=== PATIENT | female | born 1940 | race Caucasian/White ===

== ENCOUNTER 2024-09-11 03:11 | Inpatient (IN) | payer OTHER, SELFPAY ==
[2024-09-10 21:43] VITALS: BMI 26.4
[2024-09-10 21:47] VITALS: BP 123/70
[2024-09-10 22:03] LABS: Glucose - Point of Care 208 mg/dl (70-99)
[2024-09-10 22:14] LABS: % Basophils 0.3 % (0-2); % Eosinophils 0.1 % (0-6); % Immature Granulocytes 0.6 % (0-0.5); % Lymphocytes 11.3 % (20.5-51.1); % Monocytes 6.3 % (1.7-9.3); % Neutrophils 81.4 % (42.2-75.2); Absolute Basophils 0.1 10^3/uL (0-0.2); Absolute Immature Granulocytes 0.1 10^3/uL (0-0.05); Absolute Lymphocytes 1.9 10^3/uL (1.2-3.4); Absolute Neutrophils 13.3 10^3/uL (1.4-6.5); Hematocrit 41.9 % (37.0-47.0); Hemoglobin 13.8 g/dL (12.0-16.0); Mean Corp Hgb Conc. 32.9 g/dL (33.0-37.0); Mean Corpuscular Hgb 29.3 pg (27.0-31.0); Nucleated Red Blood Cells % 0 %; Platelet Count 372 10^3/uL (130-400); Red Blood Cell Count 4.71 10^6/uL (4.20-5.40); Red Cell Dist. Width 13.3 % (11.5-14.5); White Blood Cell Count 16.3 10^3/uL (4.8-10.8)
[2024-09-10 22:30] LABS: ALT (SGPT) 18 U/L (0-35); AST (SGOT) 21 U/L (14-36); Albumin 4.3 g/dl (3.5-5.0); Alkaline Phosphatase 48 U/L (38-126); Blood Urea Nitrogen 20 mg/dl (7-17); COVID-19 Antigen Negative (Negative); Carbon Dioxide 28 mmol/L (22-30); Chloride 93 mmol/L (98-107); Glucose 218 mg/dl (70-99); Lipase 156 U/L (23-300); Potassium 4.9 mmol/L (3.5-5.1); Sodium 133 mmol/L (135-145); Total Bilirubin 0.8 mg/dl (0.2-1.3); Total Protein 6.8 g/dl (6.3-8.2); eGFR > 60.00
--- NOTE | 2024-09-10 23:23 | ED.GENMED ---
History of Present Illness
<Matt Metzger DO - Last Filed: 09/11/24 01:40>
General
Chief Complaint: Abdominal Pain
Time Seen by Provider: 09/10/24 23:12
<CINDY Patino - Last Filed: 09/11/24 01:48>
General
Source: patient and family
Exam Limitations: none
Nursing documentation reviewed up to this point in time: agreed with
History of Present Illness
History of Present Illness:
Pt is an 84 y/o F w/ PMH of type 2 DM, HTN, and HLD who presents today with her daughter for nausea, vomiting, fever and mild abdominal pain x 48 hours. Pt states it began after eating soup that had been on the counter for 2 hours and is concerned
for food poisoning. She states she has not vomited in a while and does not currently feel nauseous. She has not tried anything to help, and states she has not has any fluids or food in the past 4 hours. She admits her last BM was this morning at
0400am and was of normal consistency. She notes her abdominal pain comes at random and was worse when she was actively vomiting. She admits it is located mostly in the LUQ and denies radiation of the pain. Pt has a temperature of 100.2F on admission
today. Pt states she generally feels well, and better than she did when the illness began. She denies hematemesis, hematuria, diarrhea, constipation, chills, chest pain, cough, SOB, dyspnea, or recent sick contacts.
If applicable-neuro sx onset
Onset of symptoms known: Yes
Date of onset of symptoms: 09/08/24
Review of Systems
<CINDY Patino - Last Filed: 09/11/24 01:48>
Review of Systems
Allergies reviewed?: Yes
Other source history: family
Constitutional: Reports fatigue
EENT: Reports other (dry mucous membranes)
Respiratory: Reports no symptoms
Cardiac: Reports no symptoms
ABD/GI: Reports abdominal pain (worse when actively vomiting, random in timing; pt describes pain as 'dull' in LUQ) and vomiting (multiple times x 2 days)
: Reports no symptoms
Musculoskeletal: Reports no symptoms
Neurological: Reports no symptoms
Phy Exam
<Radha Tejada STPA - Last Filed: 09/11/24 01:48>
General Physical Exam
General Presentation: well appearing
General age: appears stated age
General Skin: warm and dry
General Habitus: elderly
General Mental: alert
General Hydration: dry mucous membranes
Cardiovascular Exam
Cardiovascular Exam: regular rate/rhythm and no murmur
Pulmonary Exam
Pulmonary Exam: lungs clear and no respiratory distress
Gastrointestinal Exam
Gastrointestinal Exam: normal bowel sounds, soft, distended (mildly) and tender (mild epigastric tenderness on palpation; no rebound)
Course
<Matt Metzger, DO - Last Filed: 09/11/24 01:40>
Orders/Labs/Results
Orders:
Orders
09/10/24 21:44
Electrocardiogram (*1) Urgent
Reason for Study: Abdominal Pain
Bedside Glucose- Treatment ONCE
EKG- Treatment ONCE
IV Insert/Care/Rem.- Treatment PRN
Urinalysis Reflex To Culture Urgent
Date Specimen was Collected: 09/10/24
Time Specimen was Collected: 21:44
09/10/24 22:06
COVID-19 Antigen Urgent
Source: Nasal Swab
Complete Blood Count/With Diff Urgent
Comprehensive Metabolic Panel Urgent
Lipase Urgent
Influenza A+B Rapid Molecular Urgent
MATTIE Source: Nasal Swab
Specimen Description:
09/10/24 23:32
0.9% Sodium Chloride 1000 ml [Nss] 1,000 ml IV BOLUS
09/11/24 00:00
CT Abd/pelvis W Iv Cont Urgent
Reason For Exam: fever, mid abd pain
Abnormal Lab Results
09/10/24 09/10/24 09/11/24
22:02 22:06 01:09
WBC 16.3 H 10^3/uL
(4.8-10.8)
MCHC 32.9 L g/dL
(33.0-37.0)
Abs Immat Gran (auto) 0.1 H 10^3/uL
(0-0.05)
Absolute Neuts (auto) 13.3 H 10^3/uL
(1.4-6.5)
Absolute Monos (auto) 1.0 H 10^3/uL
(0.1-0.6)
Immature Gran % 0.6 H %
(0-0.5)
Neutrophils % 81.4 H %
(42.2-75.2)
Lymphocytes % 11.3 L %
(20.5-51.1)
Sodium 133 L mmol/L
(135-145)
Chloride 93 L mmol/L
(98-107)
BUN 20 H mg/dl
(7-17)
Glucose 218 H mg/dl
(70-99)
Urine Ketones Trace A
(Negative)
POC Glucose 208 H mg/dl
(70-99)
09/10/24 22:06
09/10/24 22:06
Vital Signs
Initial and Last Documented VS:
Initial Vital Signs
Temp Pulse Resp BP Pulse Ox
100.2 F 83 20 123/70 97
09/10/24 21:47 09/10/24 21:47 09/10/24 21:47 09/10/24 21:47 09/10/24 21:47
Last Documented Vital Signs
Temp Pulse Resp BP Pulse Ox
100.2 F 83 20 119/67 95
09/10/24 21:47 09/10/24 21:47 09/10/24 21:47 09/11/24 01:07 09/11/24 01:30
<CINDY Patino - Last Filed: 09/11/24 01:48>
Orders/Labs/Results
Orders:
Orders
09/10/24 21:44
Electrocardiogram (*1) Urgent
Reason for Study: Abdominal Pain
Bedside Glucose- Treatment ONCE
EKG- Treatment ONCE
IV Insert/Care/Rem.- Treatment PRN
Urinalysis Reflex To Culture Urgent
Date Specimen was Collected: 09/10/24
Time Specimen was Collected: 21:44
09/10/24 22:06
COVID-19 Antigen Urgent
Source: Nasal Swab
Complete Blood Count/With Diff Urgent
Comprehensive Metabolic Panel Urgent
Lipase Urgent
Influenza A+B Rapid Molecular Urgent
MATTIE Source: Nasal Swab
Specimen Description:
09/10/24 23:32
0.9% Sodium Chloride 1000 ml [Nss] 1,000 ml IV BOLUS
09/11/24 00:00
CT Abd/pelvis W Iv Cont Urgent
Reason For Exam: fever, mid abd pain
Abnormal Lab Results
09/10/24 09/10/24 09/11/24
22:02 22:06 01:09
WBC 16.3 H 10^3/uL
(4.8-10.8)
MCHC 32.9 L g/dL
(33.0-37.0)
Abs Immat Gran (auto) 0.1 H 10^3/uL
(0-0.05)
Absolute Neuts (auto) 13.3 H 10^3/uL
(1.4-6.5)
Absolute Monos (auto) 1.0 H 10^3/uL
(0.1-0.6)
Immature Gran % 0.6 H %
(0-0.5)
Neutrophils % 81.4 H %
(42.2-75.2)
Lymphocytes % 11.3 L %
(20.5-51.1)
Sodium 133 L mmol/L
(135-145)
Chloride 93 L mmol/L
(98-107)
BUN 20 H mg/dl
(7-17)
Glucose 218 H mg/dl
(70-99)
Urine Ketones Trace A
(Negative)
POC Glucose 208 H mg/dl
(70-99)
09/10/24 22:06
09/10/24 22:06
Vital Signs
Initial and Last Documented VS:
Initial Vital Signs
Temp Pulse Resp BP Pulse Ox
100.2 F 83 20 123/70 97
09/10/24 21:47 09/10/24 21:47 09/10/24 21:47 09/10/24 21:47 09/10/24 21:47
Last Documented Vital Signs
Temp Pulse Resp BP Pulse Ox
100.2 F 83 20 119/67 95
09/10/24 21:47 09/10/24 21:47 09/10/24 21:47 09/11/24 01:07 09/11/24 01:30
<CINDY Patino - Last Filed: 09/11/24 01:48>
*Critical Care Note
Total Time (30-74mins, 75-104mins- exclusive of procedures): Not Applicable
<CINDY Patino - Last Filed: 09/11/24 01:48>
Update Note
Update Note:
09/11/24 @ 01:39AM; AD PA-S: CT abdomen showing SBO per radiology; pt and family made aware of Dx and plan to admit for observation and NPO; pt in no acute distress/pain
ED Attending Note
<Matt Metzger DO - Last Filed: 09/11/24 01:40>
ED Attending Note
Patient seen and examined by attending physician: Yes
I performed the substantive portion of visit, reviewed & personally made and approve the management plan that is documented in note by myself or SUZY.: Yes
ED Attending Note:
I have seen and evaluated the patient with a [id number] encounter. I have spoken to the advance practicer provider and involved in the medical history, the physical exam, medical decision making.
Evaluation and management service: agree unless noted differently below.
Results interpretation: agree unless noted differently below.
Focused HPI: 84-year-old female presenting with nausea and vomiting over the past few days. This is associated with a low-grade fever. She has been complaining of mild abdominal pain but she attributes this to likely food poisoning. On my
evaluation, patient states she is already starting to feel better
Physical exam: Dry mucous membranes, mild mid abdominal tenderness without rebound. No respiratory distress or cough
Medical Decision Making: Given age and abdominal pain, will obtain CT abdomen/pelvis. She does have expected leukocytosis given the vomiting and low-grade fever. She is hyperglycemic but there is no evidence of DKA. Will give IV fluids
<CINDY Patino - Last Filed: 09/11/24 01:48>
-
Portions of this chart may have been created with voice recognition software.� Occasional wrong word or��sound alike� substitutions may have occurred due to the inherent limitations of voice recognition software.
Discharge Plan
Departure
Patient Disposition: Admit
Date of Disposition: 09/11/24
Time of Disposition: 01:40
Admit to: Med/Surg
Presentation/result/management discussed w/ accepting MD/DO: Hospitalist
Discharge Problem:
SBO (small bowel obstruction)
Prescriptions:
No Action
glimepiride 4 mg Tablet
4 mg PO BID
pravastatin 80 mg Tablet
80 mg PO DAILY
aspirin 81 mg Tablet
81 mg PO DAILY
atenolol 50 mg Tablet
50 mg PO DAILY
insulin glargine 100 unit/mL Cartridge
36 unit SC DAILY
valsartan-hydrochlorothiazide 320-25 mg Tablet
1 tab PO DAILY
Janumet 50-1,000 mg Tablet
1 tab PO BID
Referrals:
UNKNOWN - PT DOES,NOT KNOW [Unknown Provider] -
Interventions
Interventions:
*General Assessment Last Done: 09/10/24 23:59
*Neglect/Abuse Screening Last Done: 09/10/24 21:49
*ED COVID-19 Vaccine History Last Done: 09/10/24 23:59
QT-Fxfxcy-Faosvvecrs Assessment Last Done: 09/10/24 23:53
Discharge Date and Time
Print Language: URDU
[2024-09-10] MEDS: NSS 1000 IV (23:41)
[2024-09-11] VITALS (10 sets, daily range): BP systolic 105–134; BP diastolic 52–70; BMI 27.6
[2024-09-11 01:18] LABS: Urine Albumin Trace (Neg - Trace); Urine Bilirubin Negative (Negative); Urine Character Clear (Clear); Urine Color Yellow; Urine Glucose Negative (Negative); Urine Ketone Trace (Negative); Urine Leukocyte Negative (Negative); Urine Nitrite Negative (Negative); Urine Occult Blood Negative (Negative); Urine Specific Gravity 1.015 (<1.030); Urine Urobilinogen Negative (Neg - 1+)
--- NOTE | 2024-09-11 03:04 | HPS.HSE ---
Family Physician
-
Family Physician: Natasha Bojorquez
Chief Complaint
-
Abdominal pain
History of Present Illness
This is an 84-year-old female past medical history of insulin-dependent diabetes, hypertension, hyperlipidemia who presents to the emergent department with 2 days of abdominal pain.
Patient reports acute onset of bilateral lower quadrant abdominal pain associated with 1-2 episodes of nonbloody and nonbilious emesis. Denied having any diarrhea. Denied having fevers or chills at home. Patient reports of pain has been
persistent over the last 2 days as she is unable to tolerate p.o. due to the pain so she came to the emergency department. She denies prior history of such abdominal discomfort. In the ED patient was found to have a small bowel obstruction. She
denies prior history of bowel obstruction or gallstones. She reported that she had a hysterectomy over 30 years ago and no other surgeries since. Patient denied any history of inflammatory bowel disease. She denies any recent episodes of bloody
BMs. She has had colonoscopies in the past. She also had a history of esophageal ring//status post prior EGD.
On arrival in the emergency department she had a low-grade temp of 100.2, blood pressure was stable at 111/60 with a pulse of 83 she was at 95% on room air. He had a white count of 16.3 with the rest of the CBC unremarkable. Initial sodium was 133
with a left electrolytes BUN/creatinine were unremarkable. LFTs were within normal limits. UA was completely normal. She had a CT of the abdomen pelvis which showed acute small bowel obstruction in the proximal ileum at the pelvic junction.
Medical History
Past Medical History
Past Medical History: Reports HTN, Hypercholesterolemia and IDDM
Past Surgical History: Reports Gynocological (Hysterectomy)
Social History
Tobacco: Non-smoker
Alcohol: Occasional
Drug: None
Personal: Single
Living: With Family
Employment: Retired
Family History
Family History: Not pertinent
Allergies / Home Medications
Allergies reflects when Allergies were last updated in [facility].
Home Medications with original date entered in [facility]
Allergy/Medication List:
Allergies
Allergy/AdvReac Type Severity Reaction Status Date / Time
No Known Allergies Allergy Verified 09/10/24 21:45
Home Medications
aspirin 81 mg tablet 81 mg PO DAILY 08/05/23
atenolol 50 mg tablet 50 mg PO DAILY 08/05/23
glimepiride 4 mg tablet 4 mg PO BID 08/05/23
insulin glargine 100 unit/mL subcutaneous cartridge 36 unit SC DAILY 08/05/23
pravastatin 80 mg tablet 80 mg PO DAILY 08/05/23
sitagliptin phosphate 50 mg-metformin 1,000 mg tablet (Janumet) 1 tab PO BID 08/05/23
valsartan 320 mg-hydrochlorothiazide 25 mg tablet 1 tab PO DAILY 08/05/23
Review of Systems
-
History Source: Patient
Constitutional: Reports No Symptoms
EENT: Reports No Symptoms
Respiratory: Reports No Symptoms
Cardiac: Reports No Symptoms
Abdomen/GI: Reports Abdominal Pain and Vomiting
: Reports No Symptoms
Musculoskeletal: Reports No Symptoms
Skin: Reports No Symptoms
Neurological: Reports No Symptoms
Endocrine: Reports No Symptoms
Hematologic/Lymphatic: Reports No Symptoms
Psych: Reports No Symptoms
Physical Exam
Vital Signs
Vital Signs
Temp Pulse Resp BP Pulse Ox
100.2 F 83 20 119/54 94
09/10/24 21:47 09/10/24 21:47 09/10/24 21:47 09/11/24 03:00 09/11/24 03:00
Physical Exam
General: Well Developed, Well Nourished and Comfortable
HEENT: NormoCephalic, Anicteric, Moist mucous membranes and Atraumatic
Respiratory: Clear
Cardiac: S1/S2 and Regular Rhythm
Breast: Deferred by me
GI: Soft, Non Tender and Non Distended
Rectal: Deferred by Provider
Genito-urinary: Deferred by me
Musculoskeletal: No Clubbing, No Cyanosis and No Edema
Skin: Warm
Neuro: AO x 3
Hematologic/Lymphatic: No Lymphadenopathy
Psych: Calm
Laboratory Results
-
09/10/24 22:06
09/10/24 22:
Laboratory Results
Total Bilirubin 0.8 mg/dl (0.2-1.3) 09/10/24 22:06
AST 21 U/L (14-36) 09/10/24 22:
ALT 18 U/L (0-35) 09/10/24 22:06
Alkaline Phosphatase 48 U/L (38-126) 09/10/24 22:
Lipase 156 U/L (23-300) 09/10/24 22:06
Data Reviewed
-
CT Scan: Report Reviewed by me
Medical Tests (Nuc Med, Echo, EKG etc): Image Personally Visualized and interpreted
Lab Data: Labs Reviewed by me
Old Records: Reviewed
Impression/Plan
-
IMPRESSION:
84-year-old female with episode of abdominal pain found to have acute small bowel obstruction on CT scan. She is mildly dehydrated with a sodium of 133 but labs are otherwise unremarkable. She has a low-grade temp and leukocytosis to 16,000 with
no obvious signs of infection and this time. While in the ED the patient has not received any pain medications. She denies any significant nausea. She has not vomited. Her abdomen was being benign without any distention.
PLAN:
1. SBO - Hx of hysterectomy so possibly related to adhesion but no other known risk factors. Benign abdominal exam. Labs unremarkabl.e
- admit to med/surg
- NPO for now except sips and icechips
- low dose pain control and antiemetics
- IVF with NS at 50 ml/hr for now
- surgery consult
- if vomiting will place NG tube but currently asymptomatic.
2. IDDM
- holding lantus, glimepiride and sitagliptin and metformin
- bedside accuchecks q6 with moderate sliding scale insulin
3. HTN
- holding antihypertensives for now
DVT PPX - lovenox sq
Code Status - DNR
[2024-09-11 08:27] LABS: Glucose - Point of Care 181 mg/dl (70-99)
[2024-09-11] MEDS: NOVOLOG FLEXPEN-MODERATE RESISTANCE SC ×3 (09:18→17:00)
[2024-09-11 12:02] LABS: Glucose - Point of Care 181 mg/dl (70-99)
[2024-09-11] MEDS: NSS 1000 IV (12:50)
--- NOTE | 2024-09-11 13:37 | CM ---
Patient seen bedside with daughter, initial assessment completed. Patient resides with her daughter in a single story home, three steps to enter. Patient denies DME, VN, or SNF history. Patient confirms PCP Natasha Bojorquez, pharmacy [facility] in
[place], confirms prescription coverage. Patient denies insecurities at home. Surgery consulted. CM will continue to follow for all discharge planning needs.
Plan; home with daughter, watch for VN needs.
--- NOTE | 2024-09-11 15:14 | CON.GS ---
Consultation
-
Date/Time Consultation Requested: 09/11/24 1456
Requesting Provider: Marques Rollins
Performing Provider: Lopez Quinones
Reason for Consultation: SBO
Medical History
-
Chief Complaint: abdominal pain/n/v
History of Present Illness:
Ms Teixeira is an 84 yo female with a history of esophageal dilation of Schatzki ring, DM and an infected IUD which developed into peritonitis and was treated surgically with LOBITO >40 years ago. She notes that there were retention sutures left in
place and the wound was quite large. She presents this admission with abdominal pain with nausea and vomiting for 2 days. Her last meal was on night when she had a bowl of a chicken soup containing a lot of vegetables and a large bowl of
nuts. A few hours thereafter, she developed nausea, vomiting and lower abdominal pain. These symptoms persisted and she was unable to tolerate any oral intake causing her to present to the ED for evaluation yesterday. She denies prior SBO's but does
note that when she eats large meals, she often has quite a bit of abdominal distention. Since presentation, she notes only intermittent nausea and pain, usually short in duration and no further vomiting. She is not passing flatus but denies burping
or belching.
Past Medical History
Past Medical History: HTN, Hypercholesterolemia and NIDDM
Past Surgical History: Gynecological (LOBITO for infected IUD) and Other (Esophageal dilation of Schatzki ring 2022)
Social History
Tobacco: Non-Smoker
Alcohol: Occasional
Living: With Family
Employment: Retired
Family History
Family History: Reviewed & Not Pertinent
Allergies / Home Medications
Allergy/AdvReac Type Severity Reaction Status Date / Time
No Known Allergies Allergy Verified 09/10/24 21:45
�Medication �Instructions �Recorded �Confirmed �Type
aspirin 81 mg tablet 81 mg PO DAILY 08/05/23 08/05/23 History
atenolol 50 mg tablet 50 mg PO DAILY 08/05/23 08/05/23 History
glimepiride 4 mg tablet 4 mg PO BID 08/05/23 08/05/23 History
insulin glargine 100 unit/mL 36 unit SC DAILY 08/05/23 08/05/23 History
subcutaneous cartridge
pravastatin 80 mg tablet 80 mg PO DAILY 08/05/23 08/05/23 History
sitagliptin phosphate 50 1 tab PO BID 08/05/23 08/05/23 History
mg-metformin 1,000 mg tablet
(Janumet)
valsartan 320 1 tab PO DAILY 08/05/23 08/05/23 History
mg-hydrochlorothiazide 25 mg tablet
Review of Systems
-
History Source: Patient and Family
All other systems: Negative unless noted
A 10 point review of systems was completed, and was negative except as per HPI.
Physical Exam
Vital Signs
Temp Pulse Resp BP Pulse Ox
99.0 F 83 20 134/70 95
09/11/24 07:49 09/11/24 07:49 09/11/24 07:49 09/11/24 07:49 09/11/24 07:49
09/10/24 09/11/24 09/12/24
06:59 06:59 06:59
Actual Weight 65.4 kg 66.27 kg
Body Mass Index (BMI) 27.6
Lab Results
09/10/24 22:06
09/10/24 22:06
WBC 16.3 10^3/uL (4.8-10.8) H 09/10/24 22:06
Hgb 13.8 g/dL (12.0-16.0) 09/10/24 22:06
Hct 41.9 % (37.0-47.0) 09/10/24 22:06
Plt Count 372 10^3/uL (130-400) 09/10/24 22:06
Abs Immat Gran (auto) 0.1 10^3/uL (0-0.05) H 09/10/24 22:06
Neutrophils % 81.4 % (42.2-75.2) H 09/10/24 22:06
Physical Exam
General: Well Developed and Well Nourished
HEENT: Moist Mucous Membranes
Respiratory: Non Labored Respirations
GI: Soft, Non Tender and Distended
Skin: Warm and Dry
Psych: Calm
Data Reviewed
-
CT Scan: Image Personally Visualized and interpreted, Report Reviewed by me, Discussed with Physician, Discussed with Patient and Discussed with Family
Labs: Labs Reviewed by me, Discussed with Physician, Discussed with Patient and Discussed with Family
Old Records: Reviewed
Assessment / Plan
-
Ms Teixeira is an 84 yo female with a history of esophageal dilation of Schatzki ring, IDDM and an infected IUD which developed into peritonitis and was treated surgically with LOBITO >40 years ago. She presents with abdominal pain with nausea and
vomiting for 2 days. These symptoms persisted and she was unable to tolerate any oral intake causing her to present to the ED for evaluation yesterday. Since presentation, she notes improvement in symptoms with now intermittent instead of constant
nausea and pain and no further vomiting. She is not passing flatus.
CT imaging reviewed with distal small bowel obstruction noted with upstream fetalization from the transition point in the pelvis. There is no evidence of bowel threat or compromise. No hernias present. Suspect this is due to adhesions from her prior
infection and surgery. Afebrile with stable vital signs. Leukocytosis is present.
She has begun to symptomatically improve with supportive measures. No emergent surgery planned today, will follow closely for improvement with medical management at this time
--Continue NPO for bowel rest
--IVF as per primary team
--Trend labs
--If develops nausea with vomiting once again, would consider placement of NGT for decompression
--Medical management as per primary team
[2024-09-11 16:49] LABS: Glucose - Point of Care 124 mg/dl (70-99)
[2024-09-11] MEDS: LOVENOX 40 MG SC (17:00)
[2024-09-11 17:47] LABS: Glucose - Point of Care 149 mg/dl (70-99)
--- NOTE | 2024-09-11 18:59 | PTCARENOTE ---
In conversation with Family and patient, pt stated that she wants us to resuscitate her if she becomes non responsive. She does not want to be a DNR. Please change this in the system.
[2024-09-12] MEDS: TYLENOL 650 MG PO ×4 (00:02→22:52)
[2024-09-12 00:46] LABS: Glucose - Point of Care 136 mg/dl (70-99)
[2024-09-12] MEDS: NOVOLOG FLEXPEN-MODERATE RESISTANCE SC ×4 (00:48→17:57)
[2024-09-12] MEDS: NSS 1000 IV (01:50)
[2024-09-12 07:17] LABS: Glucose - Point of Care 168 mg/dl (70-99)
[2024-09-12 07:30] VITALS: BP 133/73
[2024-09-12 07:50] LABS: Hematocrit 38.4 % (37.0-47.0); Hemoglobin 12.5 g/dL (12.0-16.0); Mean Corp Hgb Conc. 32.6 g/dL (33.0-37.0); Mean Corpuscular Hgb 29.6 pg (27.0-31.0); Mean Platelet Volume 10.5 fL (7.4-10.4); Platelet Count 288 10^3/uL (130-400); Red Blood Cell Count 4.22 10^6/uL (4.20-5.40); Red Cell Dist. Width 13.8 % (11.5-14.5); White Blood Cell Count 7.7 10^3/uL (4.8-10.8)
[2024-09-12 07:59] LABS: Blood Urea Nitrogen 30 mg/dl (7-17); Calcium 9.2 mg/dl (8.4-10.2); Carbon Dioxide 29 mmol/L (22-30); Chloride 98 mmol/L (98-107); Estimated Creatinine Clearance 44 ml/min; Glucose 155 mg/dl (70-99); Potassium 4.6 mmol/L (3.5-5.1); Sodium 138 mmol/L (135-145); eGFR > 60.00
--- NOTE | 2024-09-12 09:31 | W.PN.GS2 ---
Today's Communication / Plan
-
abdominal xrays
Assessment / Plan
-
84 yo female with distal small bowel obstruction noted with upstream fetalization from the transition point in the pelvis. There is no evidence of bowel threat or compromise. No hernias present. Suspect this is due to adhesions from her prior
infection and surgery.
Afebrile with stable vital signs. WBC 7.7 (16.3)
--Continue NPO for bowel rest.
--Abdominal xrays this AM
--IVF as per primary team
--Trend labs
--If develops nausea with vomiting once again, would consider placement of NGT for decompression
--Medical management as per primary team
Subjective Data
-
Date of Service: September 12, 2024
Patient states she has waxing and waning nausea, but she is not nauseous right now. She has mild distention but slowly improving. She has no vomiting. She overall feels a little better. She had flatus and a small BM this morning. She had abdominal
pain overnight which has now resolved.
Objective Data
-
Intake and Output
09/11/24 09/12/24 09/13/24
06:59 06:59 06:59
Intake Total 0 / 0
Balance 0 / 0
Intake:
Oral fluids 0 / 0
Other:
Number of approximated MODERATE 4
amounts of urine
Vital Signs
Temp Pulse Resp BP Pulse Ox
98.6 F 79 18 133/73 94
09/12/24 07:30 09/12/24 07:30 09/12/24 07:30 09/12/24 07:30 09/12/24 07:30
Lab Results
09/12/24 07:09
09/12/24 07:09
Calcium 9.2 mg/dl (8.4-10.2) 09/12/24 07:09
Total Bilirubin 0.8 mg/dl (0.2-1.3) 09/10/24 22:06
AST 21 U/L (14-36) 09/10/24 22:06
ALT 18 U/L (0-35) 09/10/24 22:06
Alkaline Phosphatase 48 U/L (38-126) 09/10/24 22:06
Total Protein 6.8 g/dl (6.3-8.2) 09/10/24 22:06
Albumin 4.3 g/dl (3.5-5.0) 09/10/24 22:06
Physical Exam
-
General: Well Developed and Well Nourished
HEENT: Moist Mucous Membranes
Respiratory: Non Labored Respirations
GI: Soft, Non Tender and mildly distended
Skin: Warm and Dry
Psych: Calm
--- NOTE | 2024-09-12 09:59 | CM ---
CM received consult for Advance Directive- patient seen with son, provided paperwork. Patient reports she is feeling much better today. General surgery following. CM will continue to follow for all discharge planning needs.
Plan; home no needs, watch for VN needs.
--- NOTE | 2024-09-12 11:29 | W.PN.HOSP.TC ---
Today's Communication/Plan
-
NPO
IVF
Abd xray
Surgery following
Assessment / Plan
Assessment / Plan
Physical exam
Sitting in bedside chair, Comfortable
Scleral anicteric
MMM
No jvd
CTABL
S1/s2 with ELMA at RUSB
Soft, NT, ND, Bs+
No LE edema
Moves extremities spontaneously
Assessment and plan
SBO
-IVF, change from NS to d51/2NS
-NPO
-Abd xray
-Suregry following
-If nauseous/vomtiing place NGT to suction
-Advance diet per surgical recs
IDDM c/b hyperglycemia (now imrpovied)
-Holding long and short acting insulin
-On SSI
-Accucchecks
-Hypoglycemic protocol
-Goal BG 140-180
HTN
-Holding natihypertensives
Hld
-Hold untile able to toelrate po
Anticipated Discharge: 24 - 48 hours
Subjective/Interval History
-
Date of Service: September 12, 2024
Seen and examined
passed gas x2 this AM
1small bm this AM
no nv
some abd aches, nothing to significant
Objective Data
-
Labs:
Laboratory Results
09/12/24
07:09
WBC 7.7
Hgb 12.5
Hct 38.4
Plt Count 288 D
Sodium 138
Potassium 4.6
Chloride 98
Carbon Dioxide 29
BUN 30 H
Creatinine 0.8
Glucose 155 H
Calcium 9.2
Vital Signs:
Vital Signs
Temp Pulse Resp BP Pulse Ox
98.6 F 79 18 133/73 94
11/24/24 07:30 09/12/24 07:30 09/12/24 07:30 09/12/24 07:30 09/12/24 07:30
I&O
09/11/24 09/12/24 09/13/24
06:59 06:59 06:59
Intake Total 0 / 0
Balance 0 / 0
[2024-09-12 11:47] LABS: Glucose - Point of Care 162 mg/dl (70-99)
[2024-09-12] MEDS: NSS IV (14:09)
[2024-09-12 15:25] VITALS: BP 119/59
[2024-09-12] MEDS: D5/0.45%NACL 1000 IV (16:57)
[2024-09-12] MEDS: LOVENOX 40 MG SC (16:58)
[2024-09-12 17:55] LABS: Glucose - Point of Care 165 mg/dl (70-99)
[2024-09-12] MEDS: MYLICON 80 MG PO (21:41)
[2024-09-12 22:47] LABS: Glucose - Point of Care 177 mg/dl (70-99)
[2024-09-12] MEDS: NOVOLOG FLEXPEN-MODERATE RESISTANCE 1 UNITS SC (22:59)
[2024-09-12 23:36] VITALS: BP 129/63
[2024-09-13] VITALS (39 sets, daily range): BP systolic 66–111; BP diastolic 45–68
[2024-09-13] MEDS: ZOFRAN 4 MG IV ×3 (02:28→20:37)
[2024-09-13] MEDS: TYLENOL 650 MG PO (02:30)
[2024-09-13] MEDS: D5/0.45%NACL 1000 IV (02:31)
[2024-09-13] MEDS: MORPHINE SULFATE 1 MG IV (02:59)
[2024-09-13 05:35] LABS: Glucose - Point of Care 224 mg/dl (70-99)
[2024-09-13] MEDS: NOVOLOG FLEXPEN-MODERATE RESISTANCE 3 UNITS SC (05:45)
[2024-09-13] MEDS: DILAUDID 0.25 MG IV ×2 (05:46→19:50)
--- NOTE | 2024-09-13 08:19 | W.SUR.PREOP ---
Pre-Operative Surgical Note
-
I have examined this patient prior to the performance of the scheduled procedure.
The patient's condition is unchanged from the time of the current History and
Physical and the patient is able to undergo the scheduled procedure.
[2024-09-13 08:45] LABS: % Basophils 0.7 % (0-2); % Eosinophils 1.7 % (0-6); % Immature Granulocytes 0.7 % (0-0.5); % Lymphocytes 24.5 % (20.5-51.1); % Neutrophils 55.4 % (42.2-75.2); Absolute Eosinophils 0.1 10^3/uL (0-0.7); Absolute Lymphocytes 0.7 10^3/uL (1.2-3.4); Absolute Monocytes 0.5 10^3/uL (0.1-0.6); Absolute Neutrophils 1.6 10^3/uL (1.4-6.5); Hematocrit 38.2 % (37.0-47.0); Hemoglobin 12.7 g/dL (12.0-16.0); Mean Corp Hgb Conc. 33.2 g/dL (33.0-37.0); Mean Corpuscular Hgb 30.2 pg (27.0-31.0); Mean Corpuscular Volume 90.7 fL (81.0-99.0); Mean Platelet Volume 10.3 fL (7.4-10.4); Nucleated Red Blood Cells % 0 %; Platelet Count 273 10^3/uL (130-400); Red Blood Cell Count 4.21 10^6/uL (4.20-5.40); Red Cell Dist. Width 13.5 % (11.5-14.5); White Blood Cell Count 2.9 10^3/uL (4.8-10.8)
[2024-09-13 09:15] LABS: Blood Urea Nitrogen 26 mg/dl (7-17); Calcium 8.8 mg/dl (8.4-10.2); Carbon Dioxide 25 mmol/L (22-30); Chloride 100 mmol/L (98-107); Estimated Creatinine Clearance 50 ml/min; Glucose 225 mg/dl (70-99); Potassium 4.3 mmol/L (3.5-5.1); Sodium 136 mmol/L (135-145); eGFR > 60.00
[2024-09-13] MEDS: ATIVAN 0.5 MG PO (09:18)
[2024-09-13] MEDS: DILAUDID 0.5 MG IV ×3 (10:04→20:54)
--- NOTE | 2024-09-13 10:12 | CM ---
Patient for OR today.
Plan: CM will follow post op for d/c needs.
--- NOTE | 2024-09-13 10:24 | W.PN.GS2 ---
Today's Communication / Plan
-
NG tube
OR.
Assessment / Plan
-
84 yo female with a history of a complex total abdominal hysterectomy for an infected IUD 50 years ago who presents with a distal small bowel obstruction n confirmed on CT oted with upstream fecalization from the transition point in the pelvis.
There is no evidence of bowel threat or compromise. No hernias present. Suspect this is due to adhesions from her prior infection and surgery. Clinically failing to improve.
Will place an NG tube at bedside today, but given the worsening pain will plan for a diagnostic laparoscopy, possible open exploration/lysis of adhesions in the OR today.
N.p.o., IV fluids
A.m. labs and type and screen ordered.
Antibiotics ordered on-call to the OR.
Time Spent
Total Time Spent with Patient (in minutes): 35
Subjective Data
-
Date of Service: September 13, 2024
Interval Events:
No acute events overnight. Pain is worse, has some nausea. Not passing flatus, no bowel function.
Objective Data
-
Intake and Output
09/12/24 09/13/24 09/14/24
06:59 06:59 06:59
Intake Total 0 / 0 1320 / 1320
Balance 0 / 0 1320 / 1320
Intake:
Oral fluids 0 / 0 120 / 120
IV fluids (Total) 1200 / 1200
Other:
Number of approximated MODERATE 4 2
amounts of urine
Vital Signs
Temp Pulse Resp BP Pulse Ox
98.9 F 82 16 111/61 93
09/13/24 07:43 09/13/24 07:43 09/13/24 07:43 09/13/24 07:43 09/13/24 07:43
Lab Results
09/13/24 08:34
09/13/24 08:34
Calcium 8.8 mg/dl (8.4-10.2) 09/13/24 08:34
Total Bilirubin 0.8 mg/dl (0.2-1.3) 09/10/24 22:06
AST 21 U/L (14-36) 09/10/24 22:06
ALT 18 U/L (0-35) 09/10/24 22:06
Alkaline Phosphatase 48 U/L (38-126) 09/10/24 22:06
Total Protein 6.8 g/dl (6.3-8.2) 09/10/24 22:06
Albumin 4.3 g/dl (3.5-5.0) 09/10/24 22:06
Physical Exam
-
GENERAL/NEURO: Awake, Alert, no distress
CHEST: Unlabored breathing on RA
ABDOMEN: Soft, mildly tender to palpation, distended.
--- NOTE | 2024-09-13 10:44 | W.PN.HOSP.TC ---
Addendum entered and electronically signed by Nikki Alvarez MD 09/13/24 19:10:
Addendum
Received a call from Dr. Fagan. Patient is hypotensive in PACU. No complication or bleeding during surgery. Could be hypovolemia. Check CBC. Continue IV fluid. Transfer the patient to ICU for observation. I signed out to the house provider
for the night time.
End
Addendum entered and electronically signed by Nikki Alvarez MD 09/13/24 11:07:
Addendum
Nurse reported pt's wishes to be full code
I spoke with daughter, she confirmed that, will change to full code ( since pt is going to OR now)
End
Original Note:
Today's Communication/Plan
-
Change IVF to NS since blood glucose is elevated
c/w surgery planning
Order x ray post NG placement
Assessment / Plan
Assessment / Plan
Physical exam
Sitting in bedside chair, Comfortable
Scleral anicteric
MMM
No jvd
CTABL
S1/s2 with ELMA at RUSB
Soft, NT, ND, Bs+
No LE edema
Moves extremities spontaneously
Assessment and plan
# SBO
persistent abdominal pain
She was evaluated by Dr Fagan this morning: plan for a diagnostic laparoscopy, possible open exploration/lysis of adhesions in the OR today.
Will order X ray post NG placement
-c/w IVF
-NPO
# IDDM c/b hyperglycemia
On dextrose gtt
-Holding long and short acting insulin
-On SSI
-AccuCheck
-Hypoglycemic protocol
-Goal BG 140-180
# hyponatremia
Mild
#Primary HTN
Soft BP
-Holding nonhypertensive
# Hld
-Hold until able to tolerate po
Code Status - DNR
Total time spent to see the patient, examine the patient on the floor, review data and lab results, discuss treatment plan with patient, daughter, nursing staff around 55 minutes
Anticipated Discharge: > 48 hours
Subjective/Interval History
-
Date of Service: September 13, 2024
Reports abdominal discomfort
No chest pain
Objective Data
-
Labs:
Laboratory Results
09/13/24
08:34
WBC 2.9 L
Hgb 12.7
Hct 38.2
Plt Count 273
Sodium 136
Potassium 4.3
Chloride 100
Carbon Dioxide 25
BUN 26 H
Creatinine 0.7
Glucose 225 H
Calcium 8.8
Vital Signs:
Vital Signs
Temp Pulse Resp BP Pulse Ox
98.9 F 82 16 111/61 93
09/13/24 07:43 09/13/24 07:43 09/13/24 07:43 09/13/24 07:43 09/13/24 08:00
I&O
09/12/24 09/13/24 09/14/24
06:59 06:59 06:59
Intake Total 0 / 0 1320 / 1320
Balance 0 / 0 1320 / 1320
[2024-09-13] MEDS: NSS 1000 IV ×2 (11:16→20:23)
[2024-09-13 12:30] LABS: Glucose - Point of Care 251 mg/dl (70-99)
[2024-09-13] MEDS: NOVOLOG FLEXPEN-MODERATE RESISTANCE 5 UNITS SC (12:34)
--- NOTE | 2024-09-13 17:55 | W.IMMPOSTOP ---
Surgical Immed Post Op Note
-
Primary Surgeon: Todd Fagan MD
Assisting Surgeon: None
Pre-op Diagnosis: Small bowel obstruction
Post-op Diagnosis: Small bowel obstruction, internal hernia with small bowel volvulus
Procedure Performed:
Diagnostic laparoscopy converted to exploratory laparotomy
Lysis of adhesions
Anesthesia Type: General
Specimen / Cultures: None
Estimated Blood Loss: 23 cc
Complications: None
Operative Findings: Dense midline omental adhesions with multiple interloop adhesions which made laparoscopic progress prohibitive. Converted to a periumbilical midline incision. Extensive lysis of adhesions (100 minutes). Most of the dense
adhesions were to the pelvis which created a window for an internal hernia/volvulus to occur. 1.8 L of effluent milked back to the stomach and removed via an NG tube was confirmed to be in proper position. Fascia closed with 0 PDS running suture.
Skin and laparoscopic ports closed with tila.
POST OP PLAN:
Imaging: None
Labs: Routine AM
Diet: N.p.o., IV fluids, NG tube to low intermittent wall suction. Will plan for PICC and TPN tomorrow. Last meal was and I do not anticipate return of bowel function before then.
Analgesia: IV Tylenol, Dilaudid as needed
Neuro/vascular checks: q4h
AC/AP: Hold Therapeutic AC, Ok for DVT PPx
Activity: Ad Marilee
Wound/Incisions/Drains: Routine
Abx: None
Dispo: RNF,.
[2024-09-13 18:10] LABS: Glucose - Point of Care 196 mg/dl (70-99)
[2024-09-13] MEDS: NOVOLOG vial 1 UNITS SC (19:06)
[2024-09-13 19:30] LABS: Hematocrit 35.4 % (37.0-47.0); Hemoglobin 12.2 g/dL (12.0-16.0); Mean Corp Hgb Conc. 34.5 g/dL (33.0-37.0); Mean Corpuscular Hgb 31.1 pg (27.0-31.0); Mean Corpuscular Volume 90.3 fL (81.0-99.0); Mean Platelet Volume 10.3 fL (7.4-10.4); Platelet Count 307 10^3/uL (130-400); Red Blood Cell Count 3.92 10^6/uL (4.20-5.40); Red Cell Dist. Width 13.6 % (11.5-14.5); White Blood Cell Count 2.8 10^3/uL (4.8-10.8)
[2024-09-13 19:31] LABS: Absolute Neutrophils -Man Diff 1.8 10^3/uL (1.4-6.5); Band Neutrophils 42 % (0-3); Eosinophils 2 % (0-6); Lymphocytes 18 % (20-51); Monocytes 7 % (2-9); Myelocytes 7 % (-); Normal RBC Morphology No; Nucleated Red Blood Cells 1 (-); Platelets Checked Yes; Segmented Neutrophils 24 % (42-75); Total Cells Counted 100
[2024-09-13 19:32] LABS: Erythrocyte Sed Rate 17 mm/hour (0-20)
[2024-09-13 19:35] LABS: Troponin I 0.059 ng/ml
[2024-09-13] MEDS: LEVOPHED 250 IV (20:19)
[2024-09-13] MEDS: NOVOLOG FLEXPEN-MODERATE RESISTANCE SC (20:21)
--- NOTE | 2024-09-13 20:35 | SUR.PHASEI ---
Pt arrived in pacu at 17:52. received report from Eileen NORTH. Eileen reported that pt's bp was low due to NG tube drained 1.8L. Pt was given IVF bolus. Pt's vss upon arrival are as follows: 97.2F, HR 89, BP 101/47, RR 15, 97% simple mask 10L. BP
started to trend downwards. Pt's SBP ranged from 90 to 66 and DBP 40-50. Pt blood sugar is 196. Dr. Seth (anesthesiologist) notified about the BP and blood sugar. Dr. Seth gave 250cc IVF bolus X2. SBp still in 77 to 80, so notified Dr. Fagan,
he gave telephone order for CBC, Troponin, and EKG. Dr. Fagan texted stating he spoke to the hospitalist and will require higher level of care. orders to transfer pt to ICU received. Transferred the PT to ICU with RN and monitor. Pt in stable
condition.
--- NOTE | 2024-09-13 20:45 | PTCARENOTE ---
Received pt via bed from PACU. Pt drowsy but easily arousable, AAOx3. Pt reports feeling nauseous and abd pain 5/10, see MAR. HR in the 80's in NSR on the monitor. POX 97% on 2 LO2 NC. lungs dec t/o. Pt snoring loudly when sleeping. Left nare NGT to
LIS per MD order draining light brown drainage. Hypo bowel, round abd. Midline abd dressing intact with outlined drainage. 3 lap sites with tila in place with bandaid intact. Squires in place draining clear yellow urine. Palpable peripheral pulses
present. Knee high seq in place. Right AC int infusing IVF NSS@125ml/hr as ordered. Levophed infusing to keep MAP >65. Pt positioned per comfort. Family at bedside. Will continue to monitor.
[2024-09-13 21:20] LABS: APTT 31.3 Sec (23.4-35.0); PT 14.6 Sec (11.4-14.6)
[2024-09-13 21:25] LABS: Blood Urea Nitrogen 31 mg/dl (7-17); Carbon Dioxide 21 mmol/L (22-30); Chloride 102 mmol/L (98-107); Estimated Creatinine Clearance 39 ml/min; Glucose 166 mg/dl (70-99); Magnesium 1.4 mg/dl (1.6-2.3); Potassium 3.8 mmol/L (3.5-5.1); Sodium 137 mmol/L (135-145); eGFR > 60.00
[2024-09-13] MEDS: LOVENOX SC (21:26)
[2024-09-13] MEDS: OFIRMEV 100 IV (21:38)
[2024-09-13] MEDS: MAGNESIUM SULFATE 50 IV (21:40)
[2024-09-13] MEDS: KCL 160 MEQ IV (21:48)
[2024-09-14] VITALS (63 sets, daily range): BP systolic 80–122; BP diastolic 47–89; BMI 29.4
[2024-09-14] MEDS: NOVOLOG FLEXPEN-MODERATE RESISTANCE 1 UNITS SC ×2 (00:03→05:51)
[2024-09-14 00:04] LABS: Glucose - Point of Care 155 mg/dl (70-99)
[2024-09-14] MEDS: DILAUDID 0.5 MG IV ×3 (02:52→23:49)
[2024-09-14] MEDS: LEVOPHED 250 IV (02:59)
--- NOTE | 2024-09-14 03:12 | PTCARENOTE ---
Pt awake complaining of 5/10 abd pain and some belching. PRN pain medication administered as ordered. Oral care provided. Pt repositioned per comfort. No other changes in assessment noted at this time. Family remains at bedside. Will continue to
monitor.
[2024-09-14] MEDS: NSS 1000 IV ×2 (04:06→12:11)
[2024-09-14] MEDS: OFIRMEV 100 IV ×4 (04:06→22:32)
[2024-09-14] MEDS: ZOFRAN 4 MG IV ×3 (04:19→23:56)
[2024-09-14 05:00] LABS: Hemoglobin 12.7 g/dL (12.0-16.0); Mean Corp Hgb Conc. 33.4 g/dL (33.0-37.0); Mean Corpuscular Hgb 29.8 pg (27.0-31.0); Mean Corpuscular Volume 89.2 fL (81.0-99.0); Mean Platelet Volume 10.7 fL (7.4-10.4); Platelet Count 319 10^3/uL (130-400); Red Blood Cell Count 4.26 10^6/uL (4.20-5.40); Red Cell Dist. Width 13.6 % (11.5-14.5); White Blood Cell Count 4.7 10^3/uL (4.8-10.8)
[2024-09-14 05:25] LABS: Blood Urea Nitrogen 36 mg/dl (7-17); Calcium 7.8 mg/dl (8.4-10.2); Carbon Dioxide 21 mmol/L (22-30); Chloride 102 mmol/L (98-107); Estimated Creatinine Clearance 29 ml/min; Glucose 183 mg/dl (70-99); Magnesium 1.9 mg/dl (1.6-2.3); Potassium 4.6 mmol/L (3.5-5.1); Sodium 137 mmol/L (135-145); eGFR 44.08
[2024-09-14 05:44] LABS: Troponin I 0.061 ng/ml
--- NOTE | 2024-09-14 05:48 | W.PN.UPDATE ---
Update Note
Progress Note Update
Notify by bedside nurse of poor urine output, fluid bolus ordered. Patient continues on levophed and IV fluids at 125 ml/hr overnight. HGB stable. Currently positive 3L.
[2024-09-14] MEDS: NSS 250 IV (05:55)
[2024-09-14 06:00] LABS: Glucose - Point of Care 187 mg/dl (70-99)
--- NOTE | 2024-09-14 06:14 | PTCARENOTE ---
Josr SARKAR updated on pt status, poor urine output 150ml dark tea overnight. IVF infusing as ordered. Pt reports feeling warm, but skin is cool and clammy. Bedside glucose obtained, insulin administered per protocol. Pt repositioned per comfort.
Son remains at bedside. Will continue to monitor.
--- NOTE | 2024-09-14 06:52 | W.PN.HOSP.TC ---
Today's Communication/Plan
-
Wean Levophed drip as possible
Continue with IV fluid. GI prophylaxis with IV PPI
Will reach out to surgery about DVT prophylaxis
Assessment / Plan
Assessment / Plan
Physical exam
General: NAD, wearing NC O2, NG tube
HEENT: Dry mucous membrane, no deformity
Heart: Regular, positive murmur
Lungs: Limited with no wheezes
Abdomen: Clean surgery site, no bleeding, no BS
Musculoskeletal: No joint swelling, no edema
Skin: no rashes
Neuro, awake, following commands
Psych, no agitation
Assessment and plan
# SBO due to internal hernia with a small bowel volvulus status post diagnostic laparoscopy that was converted to exploratory laparotomy with lysis of adhesions by Dr. Fagan on September 13.
persistent abdominal pain
She was evaluated by Dr Fagan this morning: plan for a diagnostic laparoscopy, possible open exploration/lysis of adhesions in the OR today.
Postoperative care. Anticipate ileus
-c/w IV NG on suction F
-NPO
# Postoperative hypovolemic shock
Continue fluid support and pressure support and wean as possible.
# Acute kidney injury secondary to hypovolemia. Continue with IV fluid. Monitor for retention
#Hypomagnesemia, replace
# IDDM c/b hyperglycemia
Continue with IV fluid.
-Holding long and short acting insulin while NPO. Continue with insulin sliding scale
# hyponatremia
Mild
#Primary HTN
Currently in shock and hypotensive.
# Hld
-Hold until able to tolerate po
Code Status -per patient wishes, changed to full code
Total time spent to see the patient, examine the patient on the floor, review data and lab results, discuss treatment plan with patient, nursing staff around 55 minutes
Anticipated Discharge: > 48 hours
Subjective/Interval History
-
Date of Service: September 14, 2024
No chest pain
less abdominal pain
Objective Data
-
Labs:
Laboratory Results
09/13/24 09/13/24 09/14/24
18:57 21:03 04:27
WBC 2.8 L 4.7 L
Hgb 12.2 12.7
Hct 35.4 L 38.0
Plt Count 307 319
PT 14.6
INR 1.10
APTT 31.3
Sodium 137 137
Potassium 3.8 4.6
Chloride 102 102
Carbon Dioxide 21 L 21 L
BUN 31 H 36 H
Creatinine 0.9 1.2 H
Glucose 166 H 183 H
Calcium 8.0 L 7.8 L
Vital Signs:
Vital Signs
Temp Pulse Resp BP Pulse Ox
97.9 F 77 14 104/55 97
09/14/24 03:34 09/14/24 06:30 09/14/24 06:30 09/14/24 06:30 09/14/24 06:30
I&O
09/12/24 09/13/24 09/14/24
06:59 06:59 06:59
Intake Total 0 / 0 1320 / 1320 2875.0 / 2875.0
Output Total 200 / 200
Balance 0 / 0 1320 / 1320 2675.0 / 2675.0
--- NOTE | 2024-09-14 07:09 | CON.INTV ---
Consultation
Consultation Request
Date/Time Consultation Requested: 09/14/24
Date/Time Consultation Performed: 09/14/24
Performing Provider: Osito
Reason for Consultation: Postop
Medical History
-
History of Present Illness:
Patient is an 84-year-old female past medical history of insulin-dependent diabetes, hypertension, hyperlipidemia presenting to ER with 2 days of abdominal pain, associated with 1-2 episodes of nonbloody and nonbilious emesis. On arrival in the
emergency department she had a low-grade temp of 100.2, blood pressure was stable at 111/60 with a pulse of 83 she was at 95% on room air. He had a white count of 16.3 with the rest of the CBC unremarkable. CT of the abdomen pelvis showed acute
small bowel obstruction in the proximal ileum at the pelvic junction. Underwent diag lap with conversion to ex lap and PANCHITO 09/13/24, transferred to ICU postop for further care.
Past Medical History
Past Medical History: Other (see list below)
Social History
Tobacco: Non-smoker
Alcohol: None
Drug: None
Family History
Family History: Reviewed & Not Pertinent
Allergies / Home Medications
Allergies
Allergy/AdvReac Type Severity Reaction Status Date / Time
No Known Allergies Allergy Verified 09/10/24 21:45
Home Medications
�Medication �Instructions �Recorded �Confirmed �Last Taken �Type
aspirin 81 mg tablet 81 mg PO DAILY 08/05/23 08/05/23 Unknown History
atenolol 50 mg tablet 50 mg PO DAILY 08/05/23 08/05/23 Unknown History
glimepiride 4 mg tablet 4 mg PO BID 08/05/23 08/05/23 Unknown History
insulin glargine 100 unit/mL 36 unit SC DAILY 08/05/23 08/05/23 Unknown History
subcutaneous cartridge
pravastatin 80 mg tablet 80 mg PO DAILY 08/05/23 08/05/23 Unknown History
sitagliptin phosphate 50 1 tab PO BID 08/05/23 08/05/23 Unknown History
mg-metformin 1,000 mg tablet
(Janumet)
valsartan 320 1 tab PO DAILY 08/05/23 08/05/23 Unknown History
mg-hydrochlorothiazide 25 mg tablet
Review of Systems
-
History Source: Patient
All other systems: Negative unless noted
Vitals / Labs / Diagnostic Testing
Vital Signs
Temp Pulse Resp BP Pulse Ox
97.9 F 77 14 104/55 97
09/14/24 03:34 09/14/24 06:30 09/14/24 06:30 09/14/24 06:30 09/14/24 06:30
Lab Data
09/14/24 04:27
09/14/24 04:27
Laboratory Results
09/13/24
21:03
PT 14.6
INR 1.10
APTT 31.3
Diagnostic Testing:
Physical Exam
-
HEENT: Normocephalic, Anicteric and Moist Mucous Membranes
Cardiovascular: S1/S2 and Regular Rhythm
Respiratory: Clear and Non-Labored Respirations
GI: Soft, Non Distended, Tender and Other (NGT in place)
Neurology: Awake, Alert, Oriented and No Motor Deficits
Skin: Warm, Dry and Good Color
General: Comfortable and Other (NAD)
Assessment
-
Patient is an 84-year-old female past medical history of insulin-dependent diabetes, hypertension, hyperlipidemia presenting to ER with 2 days of abdominal pain, associated with 1-2 episodes of nonbloody and nonbilious emesis. On arrival in the
emergency department she had a low-grade temp of 100.2, blood pressure was stable at 111/60 with a pulse of 83 she was at 95% on room air. He had a white count of 16.3 with the rest of the CBC unremarkable. CT of the abdomen pelvis showed acute
small bowel obstruction in the proximal ileum at the pelvic junction. Underwent diag lap with conversion to ex lap and PANCHITO 09/13/24, transferred to ICU postop for further care.
Acute SBO likely from prior adhesions status post diagnostic laparoscopy converted to ex lap with lysis of adhesions 09/13/2024
Abdominal pain oligoanuria
Leukopenia
TYRON, creatinine 1.2
Metabolic acidosis, mild
Hyperglycemia
Hypocalcemia
Elevated troponin
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
Hypertension
Hyperlipidemia
Insulin-dependent diabetes
Infected IUD status post complex total abdominal hysterectomy
Colon polyps
History of food impaction status post EGD and removal 08/05/2023
Plan
No current signs of metabolic encephalopathy or MS changes/following commands
Denies pain at this time.
Pain/sedation: PRN
RASS goals: 0
Hemodynamically stable, not requiring pressors.
Weaning off levophed at 2mcgs
Cardiac history reviewed--HTN, hold meds for now
No prior ECHO for review
Monitor on telemetry
Oxygen needs: currently stable on RA
Prior history of lung disease: none
Supplemental O2 as indicated to maintain sats > 89%
CXR/CT reviewed indicating NAD, reimage PRN
NPO, resume diet when able
NGT in place s/p PANCHITO/exlap by Gen surg
PICC line to be placed for TPN
Aspiration precautions, HOB > 30 degrees
GI prophylaxis if indicated
TYRON present, mild--creat 1.3 (BL 0.7-0.9)
Repeat labs to follow
Void trials
Follow urine output, critical I/Os
Replete electrolytes as needed
Observe off antibiotics for now
Cultures are not sent
Follow fever trend, WBC count
Can w/u if clinical signs develop
CBC stable, no signs of bleeding or coagulopathy.
Leukopenia noted, follow clinically
DVT prophylaxis as assessed based on risk, including mechanical SCDs
Can transfuse if indicated for Hb <7, plt < 10
INR WNL
No prior h/o thyroid disease
H/o diabetes, can continue on home meds, SS for coverage
HbA1c 7.2 (07/2023)
Can likely transfer to stepdown today if doing well, reviewed with care team. We will sign off upon transfer.
Diagnostic Data
Chest X-Ray: 09/13/24- Nasogastric tube extends into the stomach. No acute cardiopulmonary process.
08/05/23- Mild lingular subsegmental atelectasis and/or scarring. No pneumothorax.
CT Scan: AP 09/11/24- 1. Distal small bowel obstruction with transition point in the low anterior pelvis.
Echo:
PFT's:
Reports and relevant images were personally reviewed.
-----
Critical care time 55 mins -- this includes review of history, physical exam, medications, hemodynamic/ventilator parameters, laboratory data, imaging and discussion with house staff, pharmacy, respiratory therapy, weight loss physician, and nursing.
[2024-09-14] MEDS: NSS (PRESERVATIVE FREE) 10 ML IV (07:52)
[2024-09-14] MEDS: DILAUDID IV (07:59)
[2024-09-14] MEDS: PROTONIX IV 40 MG IV (08:09)
--- NOTE | 2024-09-14 09:52 | PTCARENOTE ---
AAOx3. Pt reports feeling nauseous and abd pain 5/10, unable to medicate at assessment. HR in the 80's in NSR on the monitor. POX 97% on 2 LO2 NC. lungs dec t/o. Left nare NGT to LIS per MD order draining light brown/green drainage. Hypo bowel,
round abd. complaining of nausea. Midline abd dressing intact with outlined drainage. 3 lap sites with tila in place with bandaid intact. Squires in place draining clear yellow urine. Palpable peripheral pulses present. Knee high seq in place.
Right AC int infusing IVF NSS@125ml/hr as ordered. Levophed infusing to keep MAP >65. Pt positioned per comfort. Family at bedside. Will continue to monitor.
--- NOTE | 2024-09-14 11:34 | W.PN.GS2 ---
Today's Communication / Plan
-
wean pressors
monitor UOP
monitor ROBF
PT
Assessment / Plan
-
84F POD1 s/p Ddx lap --> ex lap with extensive PANCHITO for internal hernia/SBO
AF, levo reqs decreasing (down to 2mcg during my encounter)
Oliguria noted
Cr slightly elevated this am
Pain controlled
NGT with feculent contents
Anticipate prologed ileus
Plan:
Wean pressors
Consider Nephrology consult for oliguria
PICC/TPN ordered
PRN pain meds
NGT to LIWS
Monitor for ROBF
PT eval and treat
lovenox ppx
Subjective Data
-
Date of Service: September 14, 2024
No specific complaints, requesting ice chips, pain controlled, denies flatus/BM, IVF bolus overnight 2/2 oliguria
Objective Data
-
Intake and Output
09/13/24 09/14/24 09/15/24
06:59 06:59 06:59
Intake Total 1320 / 1320 2875.0 / 3030.0 692.5 / 692.5
Output Total 200 / 200 955 / 955
Balance 1320 / 1320 2675.0 / 2830.0 -262.5 / -262.5
Intake:
Oral fluids 120 / 120
IV fluids (Total) 1200 / 1200 2425.0 / 2580.0 592.5 / 592.5
KCL 160 / 160
Levophed 315.0 / 345.0 92.5 / 92.5
Nss 1,000 ml @ 125 mls/hr IV . 1250 / 1375 500 / 500
Q8H [facility] Rx#:[id number]
mag 50 / 50
normal saline 450 / 450
normosol 200 / 200
IV piggybacks 450 / 450 100 / 100
Amount instilled into GI Tube ( 0 / 0
Total)
[place] Sump 0 / 0
Output:
Gastrointestinal tube output ( 900 / 900
Total)
[place] Sump 900 / 900
Urine, Squires 200 / 200 55 / 55
Other:
Number of approximated MODERATE 2
amounts of urine
Vital Signs
Temp Pulse Resp BP Pulse Ox
98.1 F 81 16 115/57 96
09/14/24 08:00 09/14/24 10:15 09/14/24 10:15 09/14/24 10:00 09/14/24 10:15
Lab Results
09/14/24 04:27
Calcium 7.8 mg/dl (8.4-10.2) L 09/14/24 04:27
Phosphorus 4.0 mg/dl (2.5-4.5) 09/14/24 04:27
Magnesium 1.9 mg/dl (1.6-2.3) 09/14/24 04:27
Total Bilirubin 0.8 mg/dl (0.2-1.3) 09/10/24 22:06
AST 21 U/L (14-36) 09/10/24 22:06
ALT 18 U/L (0-35) 09/10/24 22:06
Alkaline Phosphatase 48 U/L (38-126) 09/10/24 22:06
Total Protein 6.8 g/dl (6.3-8.2) 09/10/24 22:06
Albumin 4.3 g/dl (3.5-5.0) 09/10/24 22:06
Physical Exam
-
Gen: NAD
Abd: soft, approp ttp, dressings cdi
[2024-09-14 12:28] LABS: ALT (SGPT) 22 U/L (0-35); AST (SGOT) 38 U/L (14-36); Albumin 2.6 g/dl (3.5-5.0); Alkaline Phosphatase 69 U/L (38-126); Blood Urea Nitrogen 38 mg/dl (7-17); Calcium 7.5 mg/dl (8.4-10.2); Carbon Dioxide 23 mmol/L (22-30); Chloride 102 mmol/L (98-107); Estimated Creatinine Clearance 28 ml/min; Glucose 181 mg/dl (70-99); Magnesium 1.8 mg/dl (1.6-2.3); Phosphorus 3.9 mg/dl (2.5-4.5); Potassium 4.4 mmol/L (3.5-5.1); Sodium 137 mmol/L (135-145); Total Bilirubin 0.8 mg/dl (0.2-1.3); Total Protein 4.7 g/dl (6.3-8.2); Triglycerides 159 mg/dl (10-149); eGFR 40.05
[2024-09-14 12:42] LABS: Troponin I 0.051 ng/ml
[2024-09-14] MEDS: NOVOLOG FLEXPEN-MODERATE RESISTANCE 300 UNITS SC (12:55)
--- NOTE | 2024-09-14 13:10 | VNURNOTE ---
Chart reviewed. Patient is POD 1. Home Health Liaison spoke with patient's daughter Sussy to discuss [facility] nurse/therapy, visits, schedule and homebound status. She is agreeable and understands that visits at home will be 2-3 x per week to assess and
teach medical management. [facility] liaison provided daughter with contact information. She is aware that [facility] will contact them for start of care in 1-2 days after discharge from . [facility] referral completed in [facility]. Will continue to watch
hospitalization course.
--- NOTE | 2024-09-14 13:51 | CM ---
CM following re: discharge planning.
Discussed in Rounds, reviewed pt's chart, met with [t and pt's daughter at bedside.
Pt is POD1 s/p Ddx lap --> ex lap with extensive PANCHITO for internal hernia/SBO. General surgery following, continue supportive care.
Pt expressed her desire to return back home at discharge with [facility] services and pt preferred [facility]. Pt's daughter stated that her mother will go to her house at discharge at: [address]
A referral to [facility] made.
D/C plan: home to daughter's house with [facility] and family support.
CM will follow with discharge plan updates as hospitalization progresses
--- NOTE | 2024-09-14 13:57 | PTCARENOTE ---
Levo weaned off with MAP >65. NGT to LIWS. Surgeon allowing occasional ice chips.
[2024-09-14] MEDS: NOVOLOG FLEXPEN-MODERATE RESISTANCE SC (17:29)
[2024-09-14 17:31] LABS: Glucose - Point of Care 147 mg/dl (70-99)
[2024-09-14] MEDS: LOPRESSOR 5 MG IV (21:03)
[2024-09-14] MEDS: NEO-SYNEPHRINE 250 IV (21:08)
[2024-09-14 21:10] LABS: Hematocrit 32.6 % (37.0-47.0); Hemoglobin 10.9 g/dL (12.0-16.0); Mean Corp Hgb Conc. 33.4 g/dL (33.0-37.0); Mean Corpuscular Hgb 29.5 pg (27.0-31.0); Mean Corpuscular Volume 88.1 fL (81.0-99.0); Mean Platelet Volume 10.4 fL (7.4-10.4); Platelet Count 233 10^3/uL (130-400); Red Cell Dist. Width 14.1 % (11.5-14.5)
[2024-09-14 21:11] LABS: Band Neutrophils 21 % (0-3); Eosinophils 1 % (0-6); Lymphocytes 30 % (20-51); Monocytes 20 % (2-9); Segmented Neutrophils 14 % (42-75)
[2024-09-14 21:12] LABS: Atypical Lymphocytes 1 %; Metamyelocytes 6 % (-); Myelocytes 7 % (-); Platelets Checked Yes
[2024-09-14 21:14] LABS: Burr Cells 2+; Normal RBC Morphology No; Total Cells Counted 100
--- NOTE | 2024-09-14 21:15 | PTCARENOTE ---
Heart rate jumped to 160s-170s, EKG done showing afib with RVR. Patient denies chest pain, SOB, 'feels normal'. NEURORADIOLOGIST notified, labs sent, lopressor given and phenylephrine started to maintain SBP>90.
[2024-09-14 21:16] LABS: Absolute Neutrophils -Man Diff 0.5 10^3/uL (1.4-6.5); White Blood Cell Count 1.6 10^3/uL (4.8-10.8)
[2024-09-14 21:17] LABS: ALT (SGPT) 19 U/L (0-35); AST (SGOT) 34 U/L (14-36); Albumin 2.5 g/dl (3.5-5.0); Alkaline Phosphatase 63 U/L (38-126); Blood Urea Nitrogen 45 mg/dl (7-17); Calcium 7.6 mg/dl (8.4-10.2); Carbon Dioxide 21 mmol/L (22-30); Chloride 104 mmol/L (98-107); Estimated Creatinine Clearance 33 ml/min; Glucose 166 mg/dl (70-99); Magnesium 1.9 mg/dl (1.6-2.3); Potassium 4.2 mmol/L (3.5-5.1); Sodium 137 mmol/L (135-145); Total Bilirubin 0.6 mg/dl (0.2-1.3); Total Protein 4.7 g/dl (6.3-8.2); eGFR 48.94
[2024-09-14 21:27] LABS: Troponin I 0.043 ng/ml
[2024-09-14] MEDS: Parenteral Nutrition, Central 900 IV (21:30)
[2024-09-14 22:01] LABS: APTT 34.7 Sec (23.4-35.0)
[2024-09-14] MEDS: HEPARIN 25000 UNITS/250 ML IV (22:25)
--- NOTE | 2024-09-14 22:41 | W.PN.UPDATE ---
Update Note
Progress Note Update
Patient went into rapid AF 140 to [address] depression in V4 to V6. BP stable, trops (stable) and labs sent (mg repleted), no new chest pain noted. Cardiology and general surgery aware. Pt started on diltiazem and heparin drip.
[2024-09-14] MEDS: MAGNESIUM SULFATE 100 IV (22:44)
[2024-09-14] MEDS: CARDIZEM 125 IV (22:54)
[2024-09-14] MEDS: LR 1000 IV (23:04)
[2024-09-14] MEDS: NOVOLOG FLEXPEN-MODERATE RESISTANCE 3 UNITS SC (23:39)
[2024-09-14 23:42] LABS: Glucose - Point of Care 228 mg/dl (70-99)
[2024-09-15] VITALS (102 sets, daily range): BP systolic 79–126; BP diastolic 19–78; BMI 29.9
--- NOTE | 2024-09-15 00:35 | PTCARENOTE ---
Patient started on heparin and cardizen gtt. IVF changed to LR @ 50 mls/hr. Mag repleted. Daughter at bedside, updated. Ofirmev and dilaudid given for pain, zofran for nausea. Mouth care and deluna care done, repositioned. Otherwise patient
assessment unchanged from previous. Call ansari within reach.
--- NOTE | 2024-09-15 03:58 | DOWNTIME ---
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 Downtime documentation of patient's care, including medication administrations, has been reconciled in the electronic record per guidelines. Refer to the
patient's paper chart under the miscellaneous tab to see printed paper medication records and downtime forms.
[2024-09-15] MEDS: MYLICON 80 MG PO (04:22)
[2024-09-15] MEDS: OFIRMEV 100 IV (04:33)
[2024-09-15 05:06] LABS: Blood Urea Nitrogen 47 mg/dl (7-17); Calcium 7.7 mg/dl (8.4-10.2); Carbon Dioxide 22 mmol/L (22-30); Chloride 105 mmol/L (98-107); Estimated Creatinine Clearance 37 ml/min; Glucose 260 mg/dl (70-99); Magnesium 2.6 mg/dl (1.6-2.3); Phosphorus 2.9 mg/dl (2.5-4.5); Potassium 4.2 mmol/L (3.5-5.1); Sodium 137 mmol/L (135-145); eGFR 54.87
[2024-09-15 05:18] LABS: APTT 86.2 Sec (23.4-35.0)
--- NOTE | 2024-09-15 05:45 | PTCARENOTE ---
CHG bath done, sheets changed, labs sent. Ofirmev given for pain, simethicone for gas pain. PTT therapeutic x1, next PTT at 1130. Jerman gtt ongoing for SBP>90. Cardizem gtt ongoing for heart rate 80-100. Daughter remains at bedside. Otherwise patient
assessment unchanged from previous, call ansari within reach.
[2024-09-15] MEDS: CARDIZEM 125 IV (06:03)
[2024-09-15] MEDS: NOVOLOG FLEXPEN-HIGH RESISTANCE 4 UNITS SC ×2 (06:09→12:16)
[2024-09-15] MEDS: NOVOLOG FLEXPEN 4 UNITS SC ×3 (06:09→18:17)
[2024-09-15] MEDS: DILAUDID 0.5 MG IV ×5 (06:15→23:09)
[2024-09-15 06:18] LABS: Glucose - Point of Care 246 mg/dl (70-99)
--- NOTE | 2024-09-15 06:35 | W.PN.HOSP.TC ---
Today's Communication/Plan
-
c/w IV Cardizem & IV Heparin gtt while NPO, H&H q 12 hours
c/w NG, might try clamping trial
- Leukopenia, will add WBC Diff count to her blood work today, afebrile
Increase IVF Rate
Still on low dose Levophed, try to wean off, it is also contributing to cardiac arrhythmias
Assessment / Plan
Assessment / Plan
Physical exam
General: NAD, wearing NC O2, NG tube
HEENT: Dry mucous membrane, no deformity
Heart: Regular, positive murmur
Lungs: Limited with no wheezes
Abdomen: Clean surgery site, no bleeding. Sluggish BS
Musculoskeletal: No joint swelling, no edema
Skin: no rashes
Neuro, awake, following commands
Psych, no agitation
Assessment and plan
# new onset Atrial fibrillation with rapid ventricular response
Tachycardia, c/w IV Cardizem & Heparin gtt
Echo is ordered ( she refused it yesterday) but agreed to do it today
Will follow
# SBO due to internal hernia with a small bowel volvulus status post diagnostic laparoscopy that was converted to exploratory laparotomy with lysis of adhesions by Dr. Fagan on September 13.
Abdominal discomfort on right side
Sluggish to no bowel sounds
Postoperative care. Anticipate ileus
-c/w IV NG on suction
-- Mild IVF
-NPO
# lactic acidosis, c/w hypotension
# Positive troponin
likely c/w Non ischemic injury of myocardium
# Postoperative hypovolemic shock
Increase IVF Rate
Still on low dose Levophed, try to wean off, it is also contributing to cardiac arrhythmias
# Leukopenia, will add WBC Diff count to her blood work today
Possible neutropenia
Afebrile
# Acute kidney injury secondary to hypovolemia. Improving.
Continue with IV fluid. Monitor for retention
#Hypomagnesemia, replaced
# Mild acute blood loss anemia
Monitor H&H q 12 H while on heparin gtt
# IDDM with hyperglycemia
Continue with Q6 H insulin at 4 units
c/w ISS
-Holding oral agents.
# hyponatremia
Mild
#Primary HTN
Currently in shock and hypotensive. Off oral medications.
# Hld
-Hold until able to tolerate po
# History of Dysphagia from Schatzki's ring status post esophageal dilation
Code Status -per patient wishes, changed to full code
Total time spent to see the patient, examine the patient on the floor, review data and lab results, discuss treatment plan with patient, nursing staff around 55 minutes
Anticipated Discharge: > 48 hours
Subjective/Interval History
-
Date of Service: September 15, 2024
Events over night noted
She denies chest pain
reports abd pain to right side
Not assing gas
Objective Data
-
Labs:
Laboratory Results
09/14/24 09/14/24 09/14/24
20:42 21:33 21:45
WBC 1.6 L* Cancelled
Hgb 10.9 L Cancelled
Hct 32.6 L Cancelled
Plt Count 233 D Cancelled
APTT 34.7
Sodium 137
Potassium 4.2
Chloride 104
Carbon Dioxide 21 L
BUN 45 H
Creatinine 1.1 H
Glucose 166 H
Calcium 7.6 L
Total Bilirubin 0.6
AST 34
ALT 19
Alkaline Phosphatase 63
09/15/24 09/15/24
04:21 11:30
WBC
Hgb
Hct
Plt Count
APTT 86.2 H Pending
Sodium 137
Potassium 4.2
Chloride 105
Carbon Dioxide 22
BUN 47 H
Creatinine 1.0
Glucose 260 H
Calcium 7.7 L
Total Bilirubin
AST
ALT
Alkaline Phosphatase
Vital Signs:
Vital Signs
Temp Pulse Resp BP Pulse Ox
97.6 F 122 20 95/56 94
09/15/24 03:55 09/15/24 06:00 09/15/24 06:00 09/15/24 06:00 09/15/24 06:00
I&O
09/13/24 09/14/24 09/15/24
06:59 06:59 06:59
Intake Total 1320 / 1320 2875.0 / 3030.0 3782.5 / 3782.5
Output Total 200 / 200 3205 / 3205
Balance 1320 / 1320 2675.0 / 2830.0 577.5 / 577.5
--- NOTE | 2024-09-15 07:12 | W.PN.INTV ---
Today's Communication / Plan
Recommendations
Procal elevated, now on pressors--add abx
Will follow up cards recs for rate control, consider amio to reduce pressor needs
Remains NPO, TPN continued
Olguin culture
CT AP IV if patient not improving
Assessment
-
Patient is an 84-year-old female past medical history of insulin-dependent diabetes, hypertension, hyperlipidemia presenting to ER with 2 days of abdominal pain, associated with 1-2 episodes of nonbloody and nonbilious emesis. On arrival in the
emergency department she had a low-grade temp of 100.2, blood pressure was stable at 111/60 with a pulse of 83 she was at 95% on room air. He had a white count of 16.3 with the rest of the CBC unremarkable. CT of the abdomen pelvis showed acute
small bowel obstruction in the proximal ileum at the pelvic junction. Underwent diag lap with conversion to ex lap and PANCHITO 09/13/24, transferred to ICU postop for further care.
Acute SBO likely from prior adhesions status post diagnostic laparoscopy converted to ex lap with lysis of adhesions 09/13/2024
Abdominal pain
Oliguria
Leukopenia
TYRON, creatinine 1.2
Metabolic acidosis, mild
Hyperglycemia
Hypocalcemia
Elevated troponin
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
Hypertension
Hyperlipidemia
Insulin-dependent diabetes
Infected IUD status post complex total abdominal hysterectomy
Colon polyps
History of food impaction status post EGD and removal 08/05/2023
Plan
No current signs of metabolic encephalopathy or MS changes/following commands
Denies pain at this time.
Pain/sedation: PRN
RASS goals: 0
Hemodynamically unstable, low dose pressors.
Afib noted also placed on Dilt, consider change to Amio IV
Cards following, follow up recs
Cardiac history reviewed--HTN, hold meds for now
No prior ECHO for review
Monitor on telemetry
Oxygen needs: supplemental o2
Prior history of lung disease: none
Supplemental O2 as indicated to maintain sats > 89%
CXR/CT reviewed indicating NAD, reimage PRN
Repeat CXR in AM
NPO, resume diet when able
NGT in place s/p PANCHITO/exlap by Gen surg
PICC line to be placed for TPN
Aspiration precautions, HOB > 30 degrees
GI prophylaxis if indicated
CT AP IV given change in labs/pain level
TYRON present, mild--creat 1.3 (BL 0.7-0.9)
Repeat labs to follow
Void trials
Follow urine output, critical I/Os
Replete electrolytes as needed
Procal elevated
Add empiric abx
Olguin culture
Follow fever trend, WBC count
CT AP if not improving
CBC stable, no signs of bleeding or coagulopathy.
Leukopenia noted, follow clinically
DVT prophylaxis as assessed based on risk, including mechanical SCDs
Can transfuse if indicated for Hb <7, plt < 10
INR WNL
No prior h/o thyroid disease
H/o diabetes, can continue on home meds, SS for coverage
HbA1c 7.2 (07/2023)
Diagnostic Data
Chest X-Ray: 09/13/24- Nasogastric tube extends into the stomach. No acute cardiopulmonary process.
08/05/23- Mild lingular subsegmental atelectasis and/or scarring. No pneumothorax.
CT Scan: AP 09/11/24- 1. Distal small bowel obstruction with transition point in the low anterior pelvis.
Echo:
PFT's:
Reports and relevant images were personally reviewed.
-----
Critical care time 35 mins -- this includes review of history, physical exam, medications, hemodynamic/ventilator parameters, laboratory data, imaging and discussion with house staff, pharmacy, respiratory therapy, defence force member other ranks, and nursing.
Subjective Dataa
Subjective Data
Date of Service:
Date of Service: September 15, 2024
Chief Complaint: Senior Media Director Follow Up
Subjective:
This AM more ill appearing, more abd pain
Afib noted, now on Dilt
Jerman added as well for hypotension
Family at bedside
Objective Data
Data Reviewed
Vital Signs / I&O / Oxygen:
Vital Signs
Temp Pulse Resp BP Pulse Ox
97.6 F 122 20 95/56 94
09/15/24 03:55 09/15/24 06:00 09/15/24 06:00 09/15/24 06:00 09/15/24 06:00
Intake and Output
09/14/24 09/15/24 09/16/24
06:59 06:59 06:59
Intake Total 2875.0 / 3030.0 3782.5 / 3782.5
Output Total 200 / 200 3205 / 3205
Balance 2675.0 / 2830.0 577.5 / 577.5
SaO2 94
Nasal Cannula flow liters per 2
minute
Physical Exam
General: Other (NAD)
HEENT: Normocephalic, Anicteric and Moist Mucous Membranes
Cardiovascular: S1-S2 and Regular Rhythm
Respiratory: Crackles and Non-Labored Respirations
GI: Soft, Non Distended, Non Tender and NG Tube
Neurology: Awake, Alert, Oriented and No Motor Deficits
Skin: Warm and Dry
Labs/Micro/Reports
Lab Data
09/14/24 21:33
09/15/24 04:21
Laboratory Results
09/14/24 09/15/24
21:45 04:21
APTT 34.7 86.2 H
[2024-09-15] MEDS: NSS (PRESERVATIVE FREE) 10 ML IV (07:32)
[2024-09-15] MEDS: PROTONIX IV 40 MG IV (07:32)
--- NOTE | 2024-09-15 08:00 | PTCARENOTE ---
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 AAOx4. She is able to move all extremities, denies numbness tingling. Patient is on 2L nasal cannula, lungs auscultated, fine bibasilar crackles. Patient is in an afib
rhythm. On cardizem and heparin gtt. Also on Jerman gtt for SBP>90. Patient remains NPO, has NG tube to low intermittent suction. brownish green drainage noted. TPN infusing into right double lumen PICC. LR also at 50ml/hr. Squires without
urimeter draining yellow urine. Will review orders, patient's daughter is at bedside, updated on plan of care. Labs send, lactic and procalcitonin.
[2024-09-15 08:24] LABS: Lactic Acid 2.7 mmol/L (0.7-2.0)
[2024-09-15 08:52] LABS: NT-proBNP 2320 pg/ml
--- NOTE | 2024-09-15 08:59 | CON.CAR ---
Addendum entered and electronically signed by Tomasz Barger MD 09/15/24 14:23:
84-year-old woman admitted with small bowel obstruction, went to laparotomy and subsequent exploratory laparotomy for lysis of adhesions September 13 with small bowel volvulus and internal hernia. Postprocedure developed atrial fibrillation with
rapid ventricular response treated with Jerman-Synephrine. Ventricular response is marginally compensated. Patient now on heparin.
PMH: Diabetes, hypertension, hyperlipidemia, Schatzki's ring
PSH:: Hysterectomy 40 years ago following perforated IUD, colon polyps,
SH: , lives with family, non-smoker, no drinking
Allergies: None
Outpatient meds: Possibly aspirin, atenolol 50 mg a day, glimepiride 4 mg twice daily, Lantus, Janumet, pravastatin 80, and valsartan HCT daily
Current meds: IV heparin, phenylephrine, diltiazem IV, insulin, Zosyn, pantoprazole
Heart rate 104, blood pressure 111/50, respiratory 21, afebrile, weight 71.7 kg, intubated, sedated, head neck exam unremarkable, lungs relatively clear, irregular rate and rhythm, JVD probably okay, no obvious murmurs, abdomen obese, extremities
trace edema
Chest x-ray atelectasis
EKG: Atrial fibrillation, slightly rapid ventricular response, nonspecific ST changes, low voltage
White count 1.7, hematocrit 31.7, BUN and creatinine 47 and 1.0, CO2 22, lactic acid 2.2, troponin 0.043, proBNP 2320
Plan:
Despite her postoperative state with new onset atrial fibrillation and MSOF with shock she is doing surprisingly well and seems to be improving.
She is tolerating IV heparin for thrombolic embolic protection from atrial fibrillation. Heart rate is somewhat rapid but reasonably controlled on IV diltiazem and blood pressure is acceptable with low-dose phenylephrine.
Will add IV amiodarone in the hopes of converting her to sinus rhythm.
Echocardiogram is pending.
We will continue to follow.
111/50, pulse 104, respirate 21, afebrile
White count 1.7, hematocrit 31.7, left shift, BUN and creatinine 47 and 1, lactic acid 2.4, troponin 0.043, proBNP 2320, procalcitonin 28
EKG: Normal sinus rhythm nonspecific ST and T changes, low voltage, possible inferior SC
ECG 09/14/2020: 31 atrial fibrillation with rapid ventricular response ST segment depression anterolaterally,
Original Note:
Consultation
Consultation Request
Date/Time Consultation Requested: 09/14/2024
Date/Time Consultation Performed: 09/15/2024
Requesting Provider: MELLO Booth
Performing Provider: Katina Garcia PA-C for Dr. ELLE Barger
Reason for Consultation: New onset A-fib with rapid ventricular response
Medical History
-
History of Present Illness:
Patient is an 84-year-old female with past medical history significant for insulin-dependent diabetes, hypertension, hyperlipidemia who presents to the emergent department 09/11/2024 with 2 days of abdominal pain and was found to have low-grade
fever and leukocytosis. CT of the abdomen pelvis showed acute small bowel obstruction in the proximal ileum at the pelvic junction. Underwent diag lap with conversion to ex lap and PANCHITO 09/13/24. In the evening of 09/14/2024 patient developed
atrial fibrillation with rapid ventricular response. Patient was provided IV Lopressor with improvement of heart rates and started on IV Cardizem and heparin drip. Patient hypotensive requiring IV pressors.
Patient's son at bedside. He helps provide history. Patient has no prior cardiac history and has never seen a biometrics consultant. Patient notes some mild intermittent palpitations but denies chest pain or shortness of breath
PMH:
Type 2 diabetes, insulin-dependent
Hypertension
Hyperlipidemia
Dysphagia from Schatzki's ring status post esophageal dilation
Colon polyps
Hysterectomy
Past Medical History
Past Medical History: Other (See HPI)
Past Surgical History: Gynecological (Hysterectomy) and Other (Esophageal dilation)
Social History
Tobacco: Non-Smoker
Alcohol: None
Drug: None
Personal:
Living: With Family
Family History
Family History: Reviewed & Not Pertinent
Allergies / Home Medications
Allergy/AdvReac Type Severity Reaction Status Date / Time
No Known Allergies Allergy Verified 09/10/24 21:45
�Medication �Instructions �Recorded �Confirmed �Type
aspirin 81 mg tablet 81 mg PO DAILY 08/05/23 08/05/23 History
atenolol 50 mg tablet 50 mg PO DAILY Blood Pressure 08/05/23 09/14/24 History
glimepiride 4 mg tablet 4 mg PO BID@ Diabetes 08/05/23 09/14/24 History
insulin glargine 100 unit/mL 26 - 28 unit SC DAILY Diabetes 08/05/23 09/14/24 History
subcutaneous cartridge
pravastatin 80 mg tablet 80 mg PO QPM High Cholesterol 08/05/23 09/14/24 History
sitagliptin phosphate 50 1 tab PO BID@ Diabetes 08/05/23 09/14/24 History
mg-metformin 1,000 mg tablet
(Janumet)
valsartan 320 1 tab PO DAILY Blood Pressure 09/14/24 09/14/24 History
mg-hydrochlorothiazide 12.5 mg
tablet
Review of Systems
-
History Source: Patient
All other systems: Negative unless noted
Physical Exam
Vital Signs
Temp Pulse Resp BP Pulse Ox
98.3 F 88 17 103/66 94
09/15/24 07:35 09/15/24 08:15 09/15/24 08:15 09/15/24 08:15 09/15/24 08:22
GEN: No distress, awake, Ox3, lying in bed, NG tube in place
HEENT: supple, anicteric, mmm
LUNGS: Diffuse bilateral rales
CV: Irregularly irregular, tachycardic, S1/S2, no murmur
ABD: Mildly tender, Decreased bowel sounds
EXT: No edema, clubbing or cyanosis
NEURO: Gross non-focal
SKIN: No rash, warm, dry, pink
Lab Results
09/14/24 21:33
09/15/24 04:21
Troponin I 0.043 ng/ml H* 09/14/24 20:52
Imv-J-Tbnwjcgnbjr Pept 2320 pg/ml 09/15/24 04:21
Impression / Plan
-
Family Physician: Natasha Bojorquez
Cardiology: None prior to admission
Impression:
Presented 09/11/2024 with abdominal pain, fever, leukocytosis
Acute SBO likely from prior adhesions status post diagnostic laparoscopy converted to ex lap with lysis of adhesions 09/13/2024
Leukopenia
TYRON, creatinine 1.2
Metabolic acidosis, mild
Hyperglycemia
Hypocalcemia
Atrial fibrillation with rapid ventricular response, new diagnosis
Abnormal troponin
Type 2 diabetes, insulin dependent
Hypertension
Hyperlipidemia
Dysphagia from Schatzki's ring status post esophageal dilation
Colon polyps
Hysterectomy
Echo 09/15/2024: pending
Plan:
-Presented 09/11/2024 with abdominal pain, fever, leukocytosis and found to have acute SBO status post diagnostic laparoscopy converted to ex lap with lysis of adhesions 09/13/2024
-Continue antibiotics per primary service
-Wean off Jerman as blood pressure tolerates
-Patient developed atrial fibrillation with rapid ventricular response on evening of 09/14/2024. Patient's atenolol has been on hold since admission.
-Patient currently n.p.o. Continue IV diltiazem and Heparin gtt. Eventual resumption of oral beta-gil. Can give IV Lopressor as needed for rate control.
-Given patient requiring pressors for blood pressure could consider amiodarone as alternative to diltiazem
-Will eventually need OAC once cleared by surgery
-Elevated troponin, peaked 0.061. Suspect nonischemic myocardial injury secondary to bowel obstruction/infectious process
-Would check echocardiogram
-Continue to monitor on telemetry
-Correction of electrolyte abnormalities
-Patient's weight 14 pounds since admission. proBNP 2320. Consider given dose of IV Lasix. Did discuss with hospitalist, Dr Alvarez, who asked us to hold for now.
-TSH 1.52
-Patient on atenolol and valsartan HCTZ for hypertension as outpatient. Currently on hold as patient n.p.o. and hypotensive
Plan discussed with patient, patient's son Augie, nursing and hospitalist
HPI 09/15/2024:
Patient is an 84-year-old female with past medical history significant for insulin-dependent diabetes, hypertension, hyperlipidemia who presents to the emergent department 09/11/2024 with 2 days of abdominal pain and was found to have low-grade
fever and leukocytosis. CT of the abdomen pelvis showed acute small bowel obstruction in the proximal ileum at the pelvic junction. Underwent diag lap with conversion to ex lap and PANCHITO 09/13/24. In the evening of 09/14/2024 patient developed
atrial fibrillation with rapid ventricular response. Patient was provided IV Lopressor with improvement of heart rates and started on IV Cardizem and heparin drip. Patient hypotensive requiring IV pressors with Levophed.
Patient's son at bedside. He helps provide history. Patient has no prior cardiac history and has never seen a biometrics consultant. Patient notes some mild intermittent palpitations but denies chest pain or shortness of breath
Data Reviewed
-
EKG: Report Reviewed by me, Discussed with Physician, Discussed with Nurse, Discussed with Patient and Discussed with Family
Radiology: Report Reviewed by me, Discussed with Physician, Discussed with Nurse, Discussed with Patient and Discussed with Family
Labs: Labs Reviewed by me, Discussed with Physician, Discussed with Nurse, Discussed with Patient and Discussed with Family
Old Records: Reviewed
[2024-09-15 09:05] LABS: Procalcitonin 28.42 ng/ml (0.0-0.25)
[2024-09-15 09:14] LABS: TSH 1.52 uIU/ml (0.47-4.68)
--- NOTE | 2024-09-15 10:00 | CM ---
Patient seen at bedside. Patient in ICU with NG tube. Patient son also present and patient plan is to go home with her daughter's both of whom are nurses. CM will continue to follow for discharge planning needs.
Plan; home with VN; pending functional assessments
--- NOTE | 2024-09-15 10:26 | PN.CDI ---
Addendum entered and electronically signed by Nikki Alvarez MD 09/15/24 10:47:
SIRS due to a non-infectious source with acute Organ Dysfunction ( TYRON)
Original Note:
CDI
- -
CDI:
Physician Documentation Request
Admit Date: 09/11/24 03:11
Dear Doctor Antonio,
Please review the following and provide your response in the progress notes.
Clinical Indicators:
Pt admitted with Partial SBO 2/2 adhesions s/p Laparotomy with removal of adhesions /Developed TYRON and Hypovolemic shock
Tmax 100.2, WBC 16.3,HR a high as 156,Respirations as high as 26
Please clarify which most accurately describes the patient:
SIRS due to a non-infectious source with acute Organ Dysfunction ( TYRON)
PSBO 2/2 adhesions only
Other ( please specify)
Use of terms such as suspected, likely, concern for, or probable (associated with a specific diagnosis that is being evaluated, monitored, or treated as if it exists) are acceptable and can be coded in the inpatient setting, when documented at the
time of discharge.
Thank you,
Laurie Olivo RN
CDI Specialist
[facility] [employer]
Please use your independent medical judgment in providing your response.
[2024-09-15] MEDS: ZOFRAN 4 MG IV ×2 (10:33→18:39)
[2024-09-15 11:55] LABS: APTT 121.9 Sec (23.4-35.0)
[2024-09-15 11:58] LABS: Lactic Acid 2.4 mmol/L (0.7-2.0)
[2024-09-15 12:05] LABS: Hematocrit 31.7 % (37.0-47.0); Hemoglobin 10.7 g/dL (12.0-16.0); Mean Corp Hgb Conc. 33.8 g/dL (33.0-37.0); Mean Corpuscular Hgb 30.1 pg (27.0-31.0); Mean Platelet Volume 10.9 fL (7.4-10.4); Platelet Count 257 10^3/uL (130-400); Red Blood Cell Count 3.56 10^6/uL (4.20-5.40); White Blood Cell Count 1.7 10^3/uL (4.8-10.8)
[2024-09-15] MEDS: NEO-SYNEPHRINE 250 IV (12:08)
[2024-09-15 12:15] LABS: Glucose - Point of Care 237 mg/dl (70-99)
[2024-09-15] MEDS: ZOSYN 50 IV ×3 (12:15→23:31)
--- NOTE | 2024-09-15 12:26 | PTCARENOTE ---
Per Dr. Blackwood at bedside with family. CT scan at this time would not be beneficial. Talked to critical care team. CT scan is on hold. repeat labs sent.
[2024-09-15 12:52] LABS: Segmented Neutrophils 26 % (42-75)
[2024-09-15 12:53] LABS: Band Neutrophils 12 % (0-3); Eosinophils 1 % (0-6); Lymphocytes 33 % (20-51); Metamyelocytes 2 % (-); Monocytes 22 % (2-9); Normal RBC Morphology No; Nucleated Red Blood Cells 2 (-); Plasmacytoid Lymphocytes 4 %; Platelets Checked Yes
[2024-09-15 12:54] LABS: Anisocytosis Slight; Hypochromasia Slight; Polychromasia Slight; Total Cells Counted 100
[2024-09-15] MEDS: LANTUS 0.2 UNITS SC (12:54)
[2024-09-15 12:55] LABS: Absolute Neutrophils -Man Diff 0.6 10^3/uL (1.4-6.5)
--- NOTE | 2024-09-15 13:25 | PTCARENOTE ---
commanding officer motorized squad in, will transition patient from cardizem to amiodarone gtt
--- NOTE | 2024-09-15 13:58 | W.PN.GS2 ---
Today's Communication / Plan
-
NPO/NGT/TPN
Monitor for ROBF
Assessment / Plan
-
84F POD2 s/p Ddx lap --> ex lap with extensive PANCHITO for internal hernia/SBO
AF
Afib with RVR overnight now on 18mcg brandon for hypotension and hep gtt
Oliguria noted, continues
Cr improved, BUN rising
Lactic mildly elevated, trending down
Leukopenia with bandemia
Pain controlled
NGT with feculent contents
Anticipate prologed ileus
Plan:
Wean pressors
Cont hep gtt per Cardiology
Agree with empiric abx given leukopenia/bandemia
Consider Nephrology consult for oliguria
Cont TPN, Mg and K reduced today
PRN pain meds
NGT to LIWS
Monitor for ROBF
PT
Subjective Data
-
Date of Service: September 15, 2024
AFib with RVR overnight, pt reports feeling better today than yesterday, denies pain, denies n/v with NGT to suction, denies flatus/BM
Objective Data
-
Intake and Output
09/14/24 09/15/24 09/16/24
06:59 06:59 06:59
Intake Total 2875.0 / 3030.0 3782.5 / 3916.5 936 / 936
Output Total 200 / 200 3205 / 3205 525 / 525
Balance 2675.0 / 2830.0 577.5 / 711.5 411 / 411
Intake:
IV fluids (Total) 2425.0 / 2580.0 3322.5 / 3456.5 936 / 936
KCL 160 / 160
Levophed 315.0 / 345.0 107.5 / 107.5
Lr 1,000 ml @ 50 mls/hr IV . 450 / 500 350 / 350
Q20H [facility] Rx#:[id number]
Nss 1,000 ml @ 125 mls/hr IV . 1250 / 1375 1999 / 1999
Q8H [facility] Rx#:[id number]
TPN 380 / 418 266 / 266
cardizem 105.0 / 120.0 105 / 105
heparin 130 / 143 89 / 89
mag 50 / 50
brandon 150 / 168 126 / 126
normal saline 450 / 450
normosol 200 / 200
IV piggybacks 450 / 450 400 / 400
Amount instilled into GI Tube ( 0 / 0 60 / 60
Total)
[place] Sump 0 / 0 60 / 60
Output:
Gastrointestinal tube output ( 2450 / 2450 350 / 350
Total)
[place] Sump 2450 / 2450 350 / 350
Urine, Squires 200 / 200 755 / 755 175 / 175
Vital Signs
Temp Pulse Resp BP Pulse Ox
97.9 F 104 21 111/50 93
09/15/24 11:35 09/15/24 12:15 09/15/24 12:15 09/15/24 12:15 09/15/24 12:15
Lab Results
09/15/24 04:21
Calcium 7.7 mg/dl (8.4-10.2) L 09/15/24 04:21
Phosphorus 2.9 mg/dl (2.5-4.5) 09/15/24 04:21
Magnesium 2.6 mg/dl (1.6-2.3) H 09/15/24 04:21
Total Bilirubin 0.6 mg/dl (0.2-1.3) 09/14/24 20:42
AST 34 U/L (14-36) 09/14/24 20:42
ALT 19 U/L (0-35) 09/14/24 20:42
Alkaline Phosphatase 63 U/L (38-126) 09/14/24 20:42
Total Protein 4.7 g/dl (6.3-8.2) L 09/14/24 20:42
Albumin 2.5 g/dl (3.5-5.0) L 09/14/24 20:42
Physical Exam
-
Gen: NAD
Abd: soft, distended, approp ttp, aquacel OK
[2024-09-15] MEDS: CORDARONE 518 MG IV (14:26)
[2024-09-15] MEDS: CORDARONE 103 MG IV (14:26)
[2024-09-15 15:47] LABS: ALT (SGPT) 21 U/L (0-35); AST (SGOT) 32 U/L (14-36)
[2024-09-15] MEDS: LR 1000 IV (15:55)
--- NOTE | 2024-09-15 16:00 | PTCARENOTE ---
switched patient from cardizem to amio. Echo completed at bedside. attempt to wean brandon gtt. Pain remains the same, unchanged, in RLQ. bowel sounds hypoactive and auscultated.
[2024-09-15 16:06] LABS: Lactic Acid 1.8 mmol/L (0.7-2.0)
[2024-09-15 16:48] LABS: Urine Albumin 1+ (Neg - Trace); Urine Bilirubin Negative (Negative); Urine Character Clear (Clear); Urine Color Yellow; Urine Glucose Negative (Negative); Urine Ketone Negative (Negative); Urine Leukocyte Trace (Negative); Urine Nitrite Negative (Negative); Urine Occult Blood 2+ (Negative); Urine Urobilinogen Negative (Neg - 1+)
[2024-09-15 17:00] LABS: Urine Bacteria Many (Negative); Urine Squamous Cell 0-2 /LPF (Few); Urine White Cell 0-2 /HPF (0-5)
[2024-09-15 17:01] LABS: Urine Amorphous Seen
[2024-09-15] MEDS: HEPARIN 25000 UNITS/250 ML IV (17:01)
--- NOTE | 2024-09-15 18:15 | PTCARENOTE ---
Patient back in sinus rhythm. still needing Jerman gtt.
[2024-09-15] MEDS: NOVOLOG FLEXPEN-HIGH RESISTANCE 7 UNITS SC ×2 (18:17→23:32)
[2024-09-15 18:24] LABS: APTT 88.5 Sec (23.4-35.0)
[2024-09-15 18:32] LABS: Glucose - Point of Care 262 mg/dl (70-99)
--- NOTE | 2024-09-15 20:00 | PTCARENOTE ---
Patient received in bed, drowsy but oriented x3. HAAS. NSR on monitor, afebrile, blood pressure as documented. Palpable pulses throughout, trace hand edema noted. Lungs with crackles at left base, coarse right mid lobe, pulse ox 94% on 2L. [place]
sump in left nare to LIS draining light brown. Abdomen round, soft, tender in RLQ, hypoactive bowel sounds. Squires catheter draining linda urine. Lap sites covered with bandaids, midline aquacell dsg with small amount of old drainage. #22 g in
left hand flushed and patent, #22 g in LAC with IVF and Heparin gtt infusing as documented. RDL PICC with TPN, Amiodarone, and NeoSynephrine gtts infusing as documented. Turned and repositioned. Family at bedside.
[2024-09-15] MEDS: DILAUDID 0.25 MG IV (20:16)
[2024-09-15] MEDS: Parenteral Nutrition, Central 1020 IV (20:54)
[2024-09-15 22:06] LABS: Hematocrit 30.4 % (37.0-47.0); Hemoglobin 10.2 g/dL (12.0-16.0); Mean Corp Hgb Conc. 33.6 g/dL (33.0-37.0); Mean Corpuscular Hgb 29.7 pg (27.0-31.0); Mean Corpuscular Volume 88.6 fL (81.0-99.0); Mean Platelet Volume 10.5 fL (7.4-10.4); Platelet Count 229 10^3/uL (130-400); Red Blood Cell Count 3.43 10^6/uL (4.20-5.40); Red Cell Dist. Width 14.3 % (11.5-14.5); White Blood Cell Count 2.9 10^3/uL (4.8-10.8)
[2024-09-15 22:20] LABS: Lactic Acid 2.3 mmol/L (0.7-2.0)
--- NOTE | 2024-09-15 23:25 | PTCARENOTE ---
Patient reassessed, repositioned on right side, Medicated with prn dilaudid. No other changes in assessment
[2024-09-15 23:26] LABS: Glucose - Point of Care 265 mg/dl (70-99)
[2024-09-15] MEDS: NOVOLOG FLEXPEN 6 UNITS SC (23:32)
[2024-09-16] VITALS (89 sets, daily range): BP systolic 81–140; BP diastolic 35–89; PULSE 81; O2SAT 97; BMI 30.8
[2024-09-16 00:09] LABS: APTT 64.3 Sec (23.4-35.0)
[2024-09-16] MEDS: LEVOPHED 250 IV ×2 (00:26→09:56)
--- NOTE | 2024-09-16 00:29 | PTCARENOTE ---
blood pressure noted, notified BILINGUAL ACCOUNT MANAGER,, order received to enma from Neo_synpehrine gtt to Levophed gtt. Patient resting on right side. Daughter at bedside
[2024-09-16] MEDS: LR 1000 IV ×2 (01:32→15:17)
[2024-09-16] MEDS: DILAUDID 0.5 MG IV ×5 (03:28→20:05)
--- NOTE | 2024-09-16 04:04 | PTCARENOTE ---
Patient repositioned, Jerman-Synephrine gtt off, levophed st 4 mcg. Labs sent. daughter at bedside
[2024-09-16] MEDS: OFIRMEV 100 IV ×4 (04:08→23:04)
[2024-09-16 04:13] LABS: Mean Corp Hgb Conc. 33.3 g/dL (33.0-37.0); Mean Corpuscular Hgb 29.7 pg (27.0-31.0); Mean Platelet Volume 10.7 fL (7.4-10.4); Platelet Count 192 10^3/uL (130-400); Red Blood Cell Count 3.37 10^6/uL (4.20-5.40); Red Cell Dist. Width 14.1 % (11.5-14.5); White Blood Cell Count 3.7 10^3/uL (4.8-10.8)
[2024-09-16 04:49] LABS: Lactic Acid 2.5 mmol/L (0.7-2.0)
[2024-09-16 04:52] LABS: Blood Urea Nitrogen 56 mg/dl (7-17); Carbon Dioxide 22 mmol/L (22-30); Chloride 105 mmol/L (98-107); Estimated Creatinine Clearance 46 ml/min; Glucose 260 mg/dl (70-99); Magnesium 2.5 mg/dl (1.6-2.3); Phosphorus 1.4 mg/dl (2.5-4.5); Potassium 4.1 mmol/L (3.5-5.1); Sodium 136 mmol/L (135-145); eGFR > 60.00
--- NOTE | 2024-09-16 05:30 | PTCARENOTE ---
Blood sugar noted, order received for glycemic protocol.
[2024-09-16] MEDS: ZOSYN 50 IV ×4 (05:32→23:03)
[2024-09-16 05:45] LABS: Glucose - Point of Care 291 mg/dl (70-99)
--- NOTE | 2024-09-16 06:15 | W.PN.INTV ---
Today's Communication / Plan
Recommendations
Still having pain, will obtain CXR/AXR, CT AP on hold per surgery
Continue abx for now, elevated procal in setting of recent surgery
IV amio for rate control, wean off pressors as tolerated
NPO, NGT remains, TPN ongoing through PICC
OOB, PT today
Pain control
Assessment
-
Patient is an 84-year-old female past medical history of insulin-dependent diabetes, hypertension, hyperlipidemia presenting to ER with 2 days of abdominal pain, associated with 1-2 episodes of nonbloody and nonbilious emesis. On arrival in the
emergency department she had a low-grade temp of 100.2, blood pressure was stable at 111/60 with a pulse of 83 she was at 95% on room air. He had a white count of 16.3 with the rest of the CBC unremarkable. CT of the abdomen pelvis showed acute
small bowel obstruction in the proximal ileum at the pelvic junction. Underwent diag lap with conversion to ex lap and PANCHITO 09/13/24, transferred to ICU postop for further care.
Acute SBO likely from prior adhesions status post diagnostic laparoscopy converted to ex lap with lysis of adhesions 09/13/2024
Abdominal pain
Oliguria
Leukopenia
TYRON, creatinine 1.2
Metabolic acidosis, mild
Hyperglycemia
Hypocalcemia
Elevated troponin
Conditions present [employer]ILD[employer] DES[employer]ER
Hypertension
Hyperlipidemia
Insulin-dependent diabetes
Infected IUD status post complex total abdominal hysterectomy
Colon polyps
History of food impaction status post EGD and removal 08/05/2023
Plan
No current signs of metabolic encephalopathy or MS changes/following commands
Pain at R side
Pain/sedation: PRN
RASS goals: 0
Hemodynamically unstable, low dose pressors--wean off as tolerated
Afib noted also now on Amio IV
Cards following, follow up recs
Cardiac history reviewed--HTN, hold meds for now
No prior ECHO for review
Monitor on telemetry
Oxygen needs: supplemental o2
Prior history of lung disease: none
Supplemental O2 as indicated to maintain sats > 89%
CXR/CT reviewed indicating NAD, reimage PRN
Repeat CXR/AXR
NPO, resume diet when able
NGT in place s/p PANCHITO/exlap by Gen surg
PICC line w/ TPN continued
Aspiration precautions, HOB > 30 degrees
GI prophylaxis if indicated
CT AP IV given change in labs/pain level--can hold off per surgery team
TYRON present, mild--creat 1.3 (BL 0.7-0.9)--resolved
Repeat labs to follow
Void trials
Follow urine output, critical I/Os
Replete electrolytes as needed
Procal elevated
Continue empiric abx
Olguin culture
Follow fever trend, WBC count
CT AP if not improving
CBC stable, no signs of bleeding or coagulopathy.
Leukopenia noted, follow clinically
DVT prophylaxis as assessed based on risk, including mechanical SCDs
Can transfuse if indicated for Hb <7, plt < 10
INR WNL
No prior h/o thyroid disease
H/o diabetes, can continue on home meds, SS for coverage
HbA1c 7.2 (07/2023)
Diagnostic Data
Chest X-Ray: 09/13/24- Nasogastric tube extends into the stomach. No acute cardiopulmonary process.
08/05/23- Mild lingular subsegmental atelectasis and/or scarring. No pneumothorax.
CT Scan: AP 09/11/24- 1. Distal small bowel obstruction with transition point in the low anterior pelvis.
Echo:
PFT's:
Reports and relevant images were personally reviewed.
-----
Critical care time 35 mins -- this includes review of history, physical exam, medications, hemodynamic/ventilator parameters, laboratory data, imaging and discussion with house staff, pharmacy, respiratory therapy, strap folding machine operator, and nursing.
Subjective Dataa
Subjective Data
Date of Service:
Date of Service: September 16, 2024
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
Subjective:
No acute events ON, remains on low dose pressors
Still having ongoing R sided pain, trying to pass gas but cannot
Family at bedside
Objective Data
Data Reviewed
Vital Signs / I&O / Oxygen:
Vital Signs
Temp Pulse Resp BP Pulse Ox
97.5 F 87 16 99/44 94
09/16/24 03:26 09/16/24 04:15 09/16/24 04:15 09/16/24 04:15 09/16/24 04:15
Intake and Output
09/14/24 09/15/24 09/16/24
06:59 06:59 06:59
Intake Total 2875.0 / 3030.0 3782.5 / 3916.5 4093.1 / 4093.1
Output Total 200 / 200 3205 / 3205 1405 / 1405
Balance 2675.0 / 2830.0 577.5 / 711.5 2688.1 / 2688.1
SaO2 94
Nasal Cannula flow liters per 2
minute
Physical Exam
General: Pain (R sided abdominal pain) and Other (NAD)
HEENT: Normocephalic, Anicteric and Moist Mucous Membranes
Cardiovascular: S1-S2 and Regular Rhythm
Respiratory: Crackles and Non-Labored Respirations
GI: Soft, Non Distended, Tender and NG Tube
Neurology: Awake, Alert, Oriented and No Motor Deficits
Skin: Warm and Dry
Labs/Micro/Reports
Lab Data
09/16/24 04:00
09/16/24 03:56
Laboratory Results
11/27/24 11/27/24 11/27/24
11:30 18:01 23:48
APTT 121.9 H 88.5 H 64.3 H
[2024-09-16] MEDS: NOVOLIN R 5 UNITS IV (06:16)
[2024-09-16] MEDS: NOVOLIN R INSULIN INFUSION 100 IV ×2 (06:16→11:00)
--- NOTE | 2024-09-16 06:44 | W.PN.HOSP.TC ---
Today's Communication/Plan
-
Right abdominal pain. Not passing gas. Better bowel sounds today, still on NG suction.
Started on TPN 09/16 and insulin gtt over night
HR better controlled
WBC improved.
Stop Ringer lactate
Add Lantus while on TPN,
Adjust TPN.... Aim for low dextrose
# Leukopenia, reactive to stress. Now resolving.
Started on Empiric IV Zosyn by ICU doctor on 09/15
Elevated procalcitonin not specific post surgery and trauma, not necessarily reflective of active infection. Will c/w Zosyn until more stability and getting result of blood culture
Possible neutropenia
Afebrile
Assessment / Plan
Assessment / Plan
Physical exam
General: NAD, wearing NC O2, NG tube
HEENT: Dry mucous membrane, no deformity
Heart: Regular, positive murmur
Lungs: Limited with no wheezes
Abdomen: Clean surgery site, no bleeding. better BS
Musculoskeletal: No joint swelling, no edema
Skin: no rashes
Neuro, awake, following commands
Psych, no agitation
Assessment and plan
# new onset Atrial fibrillation with rapid ventricular response
better controlled.
Echo c/w hyperdynamic LV, was on Levophed gtt at the time. Overall no significant abnormality on the echo. Heart murmur c/w MR.
c/w IV Cardizem , IV Amiodarone gtt, IV Heparin gtt while NPO.
# SBO due to internal hernia with a small bowel volvulus status post diagnostic laparoscopy that was converted to exploratory laparotomy with lysis of adhesions by Dr. Fagan on September 13.
Abdominal discomfort on right side
Better bowel sounds
Postoperative care. Anticipate ileus
-c/w IV NG on suction
- Started on TPN on 09/15
-NPO
# lactic acidosis, c/w hypotension
Will continue to monitor
# Positive troponin
likely c/w Non ischemic injury of myocardium
# Postoperative hypovolemic shock
s/p IVF, now off Levophed gtt
# Leukopenia, reactive to stress. Now resolving.
Started on Empiric IV Zosyn by ICU doctor on 09/15
Elevated procalcitonin not specific post surgery and trauma, not necessarily reflective of active infection. Will c/w Zosyn until more stability and getting result of blood culture
Possible neutropenia
Afebrile
# Acute kidney injury secondary to hypovolemia. Improving.
s/p, now on TPN. Monitor for retention
#Hypomagnesemia, replaced
# Mild acute blood loss anemia
Monitor H&H q 12 H while on heparin gtt
# IDDM with hyperglycemia
Continue with Q6 H insulin at 4 units
c/w ISS
-Holding oral agents.
# hyponatremia
Mild
#Primary HTN
Currently in shock and hypotensive. Off oral medications.
# Hld
-Hold until able to tolerate po
# History of Dysphagia from Schatzki's ring status post esophageal dilation
Code Status -per patient wishes, changed to full code
Total time spent to see the patient, examine the patient on the floor, review data and lab results, discuss treatment plan with patient, nursing staff around 57 minutes
Anticipated Discharge: > 48 hours
Subjective/Interval History
-
Date of Service: September 16, 2024
No chest pain
still right abdominal pain
Not passing gas Started on TPN and insulin gtt over night
HR better controlled
Objective Data
-
Labs:
Laboratory Results
09/15/24 09/15/24 09/15/24
21:57 21:58 23:48
WBC 2.9 L
Hgb 10.2 L Cancelled
Hct 30.4 L
Plt Count 229
APTT 64.3 H
Sodium
Potassium
Chloride
Carbon Dioxide
BUN
Creatinine
Glucose
Calcium
09/16/24 09/16/24 09/16/24
03:56 04:00 06:27
WBC 3.7 L
Hgb 10.0 L
Hct 30.0 L
Plt Count 192
APTT Pending
Sodium 136
Potassium 4.1
Chloride 105
Carbon Dioxide 22
BUN 56 H
Creatinine 0.8
Glucose 260 H
Calcium 8.0 L
Vital Signs:
Vital Signs
Temp Pulse Resp BP Pulse Ox
97.5 F 75 17 104/45 95
09/16/24 03:26 09/16/24 06:30 09/16/24 06:30 09/16/24 06:30 09/16/24 06:15
I&O
09/14/24 09/15/24 09/16/24
06:59 06:59 06:59
Intake Total 2875.0 / 3030.0 3782.5 / 3916.5 4284.6 / 4284.6
Output Total 200 / 200 3205 / 3205 1805 / 1805
Balance 2675.0 / 2830.0 577.5 / 711.5 2479.6 / 2479.6
[2024-09-16 06:55] LABS: APTT 72.6 Sec (23.4-35.0)
[2024-09-16 07:14] LABS: Glucose - Point of Care 274 mg/dl (70-99)
[2024-09-16] MEDS: NSS (PRESERVATIVE FREE) 10 ML IV (07:35)
[2024-09-16] MEDS: PROTONIX IV 40 MG IV (07:35)
--- NOTE | 2024-09-16 07:44 | PTCARENOTE ---
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 patient is more awake, alert, conversant than prior shift. She is able to move all extremities and able to turn herself from side to side independently. She is sinus rhythm on the monitor, off brandon gtt but on
levophed at 5 mcg. Patient is on 2L nasal cannula, some coarse breath sounds upper middle lobe. fine crackles in bases. Patient remains NPO with [place] sump to low intermittent wall suction. Belly is taut but unchanged from prior assessment.
consistent right lower quadrant pain. minimal linda urine output. Skin as documented in focused shift assessment. midline incision with dressing and lap sites with bandaids. Patient is on heparin gtt, LR at 100. TPN, amio, and levo gtt infusing
into right double lumen picc. Glycemic protocol and insulin gtt started last night. Accu check q1 hr. Will review orders call ansari within reach.
[2024-09-16 08:27] LABS: Glucose - Point of Care 211 mg/dl (70-99)
--- NOTE | 2024-09-16 09:07 | W.PN.GS2 ---
Today's Communication / Plan
-
`
Assessment / Plan
-
Assessment: 84F POD#3 s/p Ddx lap --> ex lap with extensive PANCHITO for internal hernia/SBO (09/13/2024) -
History of IDDM, hypertension, hyperlipidemia; admitted with SBO which failed to improve with nonoperative management
A-fib with RVR -> now in sinus rhythm, on amnio drip
Postoperative hypotension -likely multifactorial -hypovolemia postop/under resuscitation, previous A-fib with RVR,
TYRON -creatinine improved; BUN remains elevated
Remains on Levophed but Jerman-Synephrine has weaned off
Leukopenia improving
Heparin drip; hemoglobin stable 10.0 - acute blood loss anemia from surgery and hemodilutional
Insulin drip for management of glucose control while on TPN
Stable mild elevation of lactic acid
NG tube in place with bilious contents
Plan: Repeat CT abdomen/pelvis with IV contrast imaging has been ordered
Blood and urine cultures obtained 09/15 -results pending
Empirically on Zosyn
TPN renewed -monitor I's and O's and wean pressors as able
NG tube to LIWS
Protonix for GI prophylaxis
Heparin drip with postop A-fib episode
Subjective Data
-
Date of Service: September 16, 2024
Patient seen and examined this a.m. Daughter at bedside. Nursing staff at bedside.
Patient reports persistent abdominal pain/tenderness, slowly/slightly improved from initially postop but states pain remains quite significant in right side abdomen
Tolerating NG tube without nausea or vomiting
No flatus, no BM
Jerman-Synephrine has weaned to off; Levophed stable/improving a bit, remains on amnio drip
Objective Data
-
Intake and Output
09/15/24 09/16/24 09/17/24
06:59 06:59 06:59
Intake Total 3782.5 / 3916.5 4284.6 / 4477.1 385.0 / 385.0
Output Total 3205 / 3205 1805 / 1805
Balance 577.5 / 711.5 2479.6 / 2672.1 385.0 / 385.0
Intake:
IV fluids (Total) 3322.5 / 3456.5 4194.6 / 4387.1 385.0 / 385.0
AMIO GTT 366.8 / 383.5 33.4 / 33.4
Levophed 107.5 / 107.5 112.8 / 131.6 37.6 / 37.6
Lr 1,000 ml @ 100 mls/hr IV . 1700 / 1800 200 / 200
Q10H [facility] Rx#:[id number]
Lr 1,000 ml @ 50 mls/hr IV . 450 / 500 350 / 350
Q20H [facility] Rx#:[id number]
Nss 1,000 ml @ 125 mls/hr IV . 1999 / 1999
Q8H [facility] Rx#:[id number]
TPN 380 / 418 962 / 1005 86 / 86
cardizem 105.0 / 120.0 115 / 115
heparin 130 / 143 300 / 314
jerman 150 / 168 288 / 288 0 / 0
IV piggybacks 400 / 400
Amount instilled into GI Tube ( 60 / 60 90 / 90
Total)
[place] Sump 60 / 60 90 / 90
Output:
Gastrointestinal tube output ( 2450 / 2450 1200 / 1200
Total)
[place] Sump 2450 / 2450 1200 / 1200
Urine, Squires 755 / 755 605 / 605
Vital Signs
Temp Pulse Resp BP Pulse Ox
98.1 F 75 17 104/45 95
09/16/24 07:21 09/16/24 06:30 09/16/24 06:30 09/16/24 06:30 09/16/24 08:15
Lab Results
09/16/24 04:00
09/16/24 03:56
Calcium 8.0 mg/dl (8.4-10.2) L 09/16/24 03:56
Phosphorus 1.4 mg/dl (2.5-4.5) L 09/16/24 03:56
Magnesium 2.5 mg/dl (1.6-2.3) H 09/16/24 03:56
Total Bilirubin 0.6 mg/dl (0.2-1.3) 09/14/24 20:42
AST 32 U/L (14-36) 09/15/24 04:21
ALT 21 U/L (0-35) 09/15/24 04:21
Alkaline Phosphatase 63 U/L (38-126) 09/14/24 20:42
Total Protein 4.7 g/dl (6.3-8.2) L 09/14/24 20:42
Albumin 2.5 g/dl (3.5-5.0) L 09/14/24 20:42
Physical Exam
-
NAD but acutely ill-appearing; lying comfortably in hospital bed
ABD: Distended, tenderness to palpation with voluntary guarding and rebound right lower quadrant particularly. Upper abdomen and left side abdomen with tenderness but less guarding.
Lap surgical sites with tila
Midline laparotomy Aquacel dressing left in place as appears dry and not saturated
--- NOTE | 2024-09-16 09:15 | PTCARENOTE ---
Dr. Cloud in to assess patient. CXR and abdominal xray completed. Will take patient to CT scan at 1000
[2024-09-16 09:20] LABS: Glucose - Point of Care 190 mg/dl (70-99)
[2024-09-16] MEDS: CORDARONE 518 MG IV (09:23)
[2024-09-16 10:20] LABS: Glucose - Point of Care 150 mg/dl (70-99)
[2024-09-16] MEDS: HEPARIN 25000 UNITS/250 ML IV (10:55)
[2024-09-16 11:14] LABS: Glucose - Point of Care 123 mg/dl (70-99)
[2024-09-16] MEDS: SODIUM PHOSPHATE 255 MEQ IV (11:29)
--- NOTE | 2024-09-16 11:45 | W.PN.INTV ---
Today's Communication / Plan
Recommendations
*
Continue to Keep Incisions CDI
Continue to Encourage Light Activity / Ambulation OOB
Continue appropriate/supportive Fluid replacement/management, Close In/Outs Monitoring - In the Setting of POD#3 (POD Fluid Third Spacing)
Closely Monitoring / Replacement of Electrolytes (In the setting of Multifactorial Post-Op Ileus)
Consider Repeat further Imaging studies for better characterization of Post-Op Ileus/Intra ABD Process Progression as needed / Per GS Recommendations
Continue to Follow GS Team Recommendations
Assessment
-
ASSESSMENT:
84 yo Female, With a significant PSHx of complex total abdominal hysterectomy for an infected IUD 50 years ago and a relevant PMHx for Insulin-Dependent DM, HTN & HLD;
Currently on POD#3 S/P DIAG-LAP converted to EXP-LAP With Extensive PANCHITO for Internal Hernia With SB Volvulus and Acute SBO (On ) by Dr. Fagan,
Who was brought to the ICU for further Post-Operative Care/management yesterday (Friday - ).
PLAN:
NEURO
RASS Zero / WO Sedation
Well-Controlled Pain
Continue on Multimodal Pain Analgesia - Dilaudid PRN & Acetaminophen 650mg IV Q4hrs
Consider slowly decreasing Opioids and NSAID's introduction if possible in near future / As tolerated
Continue Conservative/Supportive Delirium Preventing Measures
CV
Conitnue on Pressors - Currently at 4mcg of Levo
Continue on Amio for Afib W. RVR (On ECG Yesterday)
Mild Concentric LVH W. Preserved EF (On Previous ECHO)
RESPI
Continue Aspiration Precautions / Elevate HOB > 35 Degrees
Currently Saturating Well at RA
Continue Conservative Respiratory Supportive Measures
Incentive Spirometry
Continue to Encourage Light Activity / Ambulation OOB
Cont. TP
GI
Currently on NPO/TPN/Ice Chips
Titrating TPN
Consider to Slowly advance Diet as tolerated
Suspected Post-Operative Ileus - Curently Improving per last CT ABD/Pelvis W/Wo this morning
Closely Monitor/Manage/Replace - Electrolytes in the setting of Post-Op Ileus
Cont. NGT Suctioning as needed / Plan for NGT Trial in upcoming days if appropriate and moving bowels
GI Ppx - Protonicx 40mg IV QD
RENAL/
Continue to Follow Creat / BUN in the setting of Previous TYRON
Continue to monitor I/O's / Urine Output
Currently On POD#3 - Consider POD Third spacing / Plan Accordingly
Cont. IV fluid Hydration & Supportive Care
LR 100ml/hr IVF - Recently Restarted
Continue to closely Monitor Electrolytes & Renal lab parameters and clinically correlate w. pt current condition
ID
Continue on Zosyn (Broad-Spectrum/Anaerobic Coverage in the setting of recent OPEN ABD Surgery & Mechanical Manipulation of Bowels)
Cont to follow Temp
Cont to Closely Monitor for signs of Infection
Continue to follow/ correlate Laboratory findings with Pt Clinical Presentation / Close Pt Monitoring
HEMME/ONC
DVT Ppx - Cont. 2,500 Units of Heparin IV
Continue to Encourage Light Activity / Ambulation OOB
Transfuse as Needed
ENDOCRINE
Continue to Monitor Glucose level
Currently on Insulin Drip
*
Continue to Keep Incisions CDI
Continue to Encourage Light Activity / Ambulation OOB
Continue appropriate/supportive Fluid replacement/management, Close In/Outs Monitoring - In the Setting of POD#3 (POD Fluid Third Spacing)
Closely Monitoring / Replacement of Electrolytes (In the setting of Multifactorial Post-Op Ileus)
Consider Repeat further Imaging studies for better characterization of Post-Op Ileus/Intra ABD Process Progression as needed / Per GS Recommendations
Continue to Follow GS Team Recommendations
Subjective Dataa
Subjective Data
Date of Service:
Date of Service: September 16, 2024
Pt was saw and evaluated at the bedside with pts nurse.
No Acute events reported nor significant concerns were offered at this time
Pt had no complains / Denies any pain / Pain under Control / Currently Scheduled Q4hrs
Pt was noted to be in NAD / AAOx3 / Looks Well
Comfortably resting in bed / Speaking in full sentences
Walk couple steps Out of Bed Today / Received PT Today - Doing Well
VSS AF
NO BM / NO Gas at this time
Tolerating Ice Ships
Pts Family at the bedside at the time of evaluation, WO major concerns at this time
Questions, minor concerns, and current pt status were addressed/discussed with pts family and pts nurse
Currently titrating TPN
On Insulin Drip / Improved Glucose Levels from 200's to ~130's now
Continue on Amio
Currently on 5mcgs of Levo
Restarted LR IV Fluids
NGT in Place & Suctioning - ~350ccs / Brownish Fluid Drainage
Incisions - [place] in Place / CDI / No Erythema / No Discharge
No MARCIA's
Chief Complaint: Chuck Boner Follow Up
Objective Data
Data Reviewed
Vital Signs / I&O / Oxygen:
Vital Signs
Temp Pulse Resp BP Pulse Ox
36.6 C 76 18 117/52 96
09/16/24 11:13 09/16/24 11:30 09/16/24 11:30 09/16/24 11:30 09/16/24 11:30
Intake and Output
09/15/24 09/16/24 09/17/24
06:59 06:59 06:59
Intake Total 3782.5 / 3916.5 4284.6 / 4477.1 1012.5 / 1012.5
Output Total 3205 / 3205 1805 / 1805 150 / 150
Balance 577.5 / 711.5 2479.6 / 2672.1 862.5 / 862.5
SaO2 96
Nasal Cannula flow liters per 2
minute
Physical Exam
General: Pain (R sided abdominal pain) and Other (NAD)
HEENT: Normocephalic, Anicteric and Moist Mucous Membranes
Cardiovascular: S1-S2 and Regular Rhythm
Respiratory: Crackles and Non-Labored Respirations
GI: Soft, Non Distended, Tender and NG Tube
Neurology: Awake, Alert, Oriented and No Motor Deficits
Skin: Warm and Dry
Labs/Micro/Reports
Lab Data
09/16/24 04:00
09/16/24 03:56
Laboratory Results
09/15/24 09/15/24 09/15/24
: 18:01 23:48
APTT 121.9 H 88.5 H 64.3 H
09/16/24
06:27
APTT 72.6 H
--- NOTE | 2024-09-16 11:50 | W.PN.SURGUPD ---
Surgical Update
Surgical Update
CT abdomen/pelvis imaging personally reviewed. No significant free air outside of typical expectations for recent laparotomy. Multiple fluid-filled distended small bowel loops similarly as would be expected in initial postoperative course. No
organizing fluid collections. No pneumatosis, portal venous gas nor mesenteric venous gas. Colon decompressed. NG tube in satisfactory position.
CT imaging negative for any evidence of postoperative bowel compromise or threat (enterotomy, ischemia or organizing fluid collection/abscess). Typical postoperative appearance of ileus/recovering bowel from lysis of adhesions.
Continue NG tube decompression, TPN and supportive care
[2024-09-16 12:22] LABS: Glucose - Point of Care 120 mg/dl (70-99)
--- NOTE | 2024-09-16 12:37 | PTCARENOTE ---
Dr. Cloud reviewed CT scan. continue NGT, bowel rest, tpn. Typical post op changes. Will ask PT to help patient sit on edge of bed. continue plan of care.
[2024-09-16 13:11] LABS: Glucose - Point of Care 130 mg/dl (70-99)
--- NOTE | 2024-09-16 13:25 | PTCARENOTE ---
Patient stood with PT at bedside, able to take a few steps. remains on levophed, will attempt to wean down. patient assisted back to bed by PT and family.
[2024-09-16 13:38] LABS: APTT 62.2 Sec (23.4-35.0)
[2024-09-16 14:21] LABS: APTT 63.4 Sec (23.4-35.0)
--- NOTE | 2024-09-16 14:54 | W.PN.CARDCBS ---
Today's Communication / Plan
-
Continue IV amiodarone and IV heparin
Eventual oral anticoagulation and oral amnio
Eventual beta-gil
Likely start IV Lasix, await proBNP
Wean norepinephrine as possible
Impression / Plan
-
Family Physician: Natasha Bojorquez
Cardiology: None prior to admission
Impression:
Presented 09/11/2024 with abdominal pain, fever, leukocytosis
Acute SBO likely from prior adhesions status post diagnostic laparoscopy converted to ex lap with lysis of adhesions 09/13/2024
Leukopenia
TYRON, creatinine 1.2
Metabolic acidosis, mild
Hyperglycemia
Hypocalcemia
Atrial fibrillation with rapid ventricular response, new diagnosis
Abnormal troponin
Type 2 diabetes, insulin dependent
Hypertension
Hyperlipidemia
Dysphagia from Schatzki's ring status post esophageal dilation
Colon polyps
Hysterectomy
Echo 09/15/2024: Small left ventricle, mild LVH, mid cavity gradient, EF 65-70%, rhythm is A-fib, normal RV, trace MR, aortic sclerosis/mild stenosis peak gradient 17 and 9, valve area 1.8 cm2. Pulmonary artery pressure 38. Small pericardial
effusion
Plan:
Despite her emergent surgery with postoperative atrial fibrillation and rapid ventricular response she seems to be doing relatively well from a cardiac standpoint.
She remains on heparin within acceptable hemoglobin. She is now back in sinus rhythm on amiodarone.
Still on norepinephrine, but this is being weaned.
Echo shows dynamic LV systolic function with LVOT/mid cavity gradient and hyperdynamic state and rapid rate on norepinephrine. Hopefully this is improved now that she is back in sinus rhythm. Eventually begin beta-gil as blood pressure is
improved.
Now that she is in sinus rhythm, if anemia becomes an ongoing issue, we could probably hold anticoagulation at relatively low embolic risk
Weight is up more than 8 kg and intake and output is markedly positive, suspect she needs IV Lasix. Chest x-ray suggested vascular congestion, check proBNP and thereafter decide about diuresis.
Detectable troponin is not a major concern and likely reflects nonACS related myocardial injury
Check proBNP, start IV Lasix, renew amiodarone and heparin
Plan discussed with patient, patient's son Augie, nursing and hospitalist
HPI 09/15/2024:
Patient is an 84-year-old female with past medical history significant for insulin-dependent diabetes, hypertension, hyperlipidemia who presents to the emergent department 09/11/2024 with 2 days of abdominal pain and was found to have low-grade
fever and leukocytosis. CT of the abdomen pelvis showed acute small bowel obstruction in the proximal ileum at the pelvic junction. Underwent diag lap with conversion to ex lap and PANCHITO 09/13/24. In the evening of 09/14/2024 patient developed
atrial fibrillation with rapid ventricular response. Patient was provided IV Lopressor with improvement of heart rates and started on IV Cardizem and heparin drip. Patient hypotensive requiring IV pressors with Levophed.
Patient's son at bedside. He helps provide history. Patient has no prior cardiac history and has never seen a medical information specialist. Patient notes some mild intermittent palpitations but denies chest pain or shortness of breath
Progress Note - Contracting Officer
Subjective
Date of Service: September 16, 2024:
Awake, alert, lying on side, family at bedside, no cardiac complaints, still on Levophed at 4
Current medications: IV acetaminophen, IV amiodarone, diltiazem discontinued, IV heparin, Dilaudid, insulin, TPN, norepinephrine, Zofran,Zosyn,
121/50, pulse 79, respiratory 22, afebrile, intake and output 4.9/1.4 L, if accurate up 8.5 kg, head neck exam unremarkable, lungs are relatively clear, now with regular rate and rhythm, soft systolic murmur, JVD okay, incision intact, 1+ to 2+ edema
Chest x-ray mild blunting of CPA, possibly mild increase in vascularity
BUN/creatinine 56 and 0.8, potassium 4.1, peak troponin 0.061, lactic acid still 2.6.
Objective
Labs:
09/16/24 04:00
09/16/24 03:56
Labs
Hgb 10.0 g/dL (12.0-16.0) L 09/16/24 04:00
Hct 30.0 % (37.0-47.0) L 09/16/24 04:00
Plt Count 192 10^3/uL (130-400) 09/16/24 04:00
PT 14.6 Sec (11.4-14.6) 09/13/24 21:03
INR 1.10 09/13/24 21:03
APTT 63.4 Sec (23.4-35.0) H 09/16/24 13:57
Sodium 136 mmol/L (135-145) 09/16/24 03:56
Potassium 4.1 mmol/L (3.5-5.1) 09/16/24 03:56
BUN 56 mg/dl (7-17) H 09/16/24 03:56
Creatinine 0.8 mg/dL (0.6-1.0) 09/16/24 03:56
Glucose 260 mg/dl (70-99) H 09/16/24 03:56
Troponins
09/13/24 09/14/24 09/14/24
18:57 04:27 11:56
Troponin I 0.059 H* 0.061 H* 0.051 H*
09/14/24
20:52
Troponin I 0.043 H*
Vital Signs and I&O:
Vital Signs
Temp Pulse Resp BP Pulse Ox
36.6 C 79 22 121/50 98
09/16/24 11:13 09/16/24 13:15 09/16/24 13:15 09/16/24 13:15 09/16/24 13:15
Vital Signs
Temp Pulse Resp BP Pulse Ox
36.6 C 79 22 121/50 98
09/16/24 11:13 09/16/24 13:15 09/16/24 13:15 09/16/24 13:15 09/16/24 13:15
Intake & Output
09/14/24 09/15/24 09/16/24 09/17/24
07:59 07:59 07:59 07:59
Intake Total 3030.0 / 3180.0 3761.5 / 3895.5 4535.6 / 4535.6 1335.0 / 1335.0
Output Total 200 / 225 3205 / 3205 1805 / 1805 150 / 150
Balance 2830.0 / 2955.0 556.5 / 690.5 2730.6 / 2730.6 1185.0 / 1185.0
Physical Exam
Physical Exam
See above
[2024-09-16 15:15] LABS: Glucose - Point of Care 118 mg/dl (70-99)
[2024-09-16 15:50] LABS: NT-proBNP 3520 pg/ml
[2024-09-16] MEDS: ZOFRAN 4 MG IV (16:05)
[2024-09-16] MEDS: LASIX 20 MG IV (17:12)
[2024-09-16 17:21] LABS: Glucose - Point of Care 124 mg/dl (70-99)
--- NOTE | 2024-09-16 17:22 | PTCARENOTE ---
LR discontinued. proBNP sent, 20 IV lasix ordered.
[2024-09-16 18:16] LABS: Glucose - Point of Care 117 mg/dl (70-99)
[2024-09-16 19:12] LABS: Glucose - Point of Care 110 mg/dl (70-99)
--- NOTE | 2024-09-16 20:00 | PTCARENOTE ---
Patient received in bed, AAOx3, HAAS. Sinus Tachycardia on monitor, afebrile, blood pressure as documented. Palpable pulses throughout, +1 edema to bilateral hands. Lungs with fine crackles bibasilar, pulse ox 98% on 2L. [place] sump on left nare
draining dark green, irrigated. Abdomen round with hypoactive bowel sounds. Squires catheter draining linda urine. Midline abdominal incision, lap site dressings intact. RDL PICC with Amiodarone. Levophed and TPN infusing as ordered. #22 g in
left hand with insulin gtt infusing as documented. #22 g in LAC with Heparin gtt infusing as documented. Turned and repositioned
[2024-09-16 20:15] LABS: Glucose - Point of Care 114 mg/dl (70-99)
[2024-09-16] MEDS: Parenteral Nutrition, Central 1020 IV (20:34)
[2024-09-16 20:42] LABS: APTT 60.5 Sec (23.4-35.0)
[2024-09-16 21:15] LABS: Glucose - Point of Care 86 mg/dl (70-99)
[2024-09-16 22:06] LABS: Glucose - Point of Care 118 mg/dl (70-99)
[2024-09-16 23:09] LABS: Blood Urea Nitrogen 51 mg/dl (7-17); Calcium 8.1 mg/dl (8.4-10.2); Carbon Dioxide 26 mmol/L (22-30); Chloride 104 mmol/L (98-107); Estimated Creatinine Clearance 41 ml/min; Glucose 114 mg/dl (70-99); Potassium 3.6 mmol/L (3.5-5.1); Sodium 136 mmol/L (135-145); eGFR > 60.00
[2024-09-16] MEDS: POTASSIUM PHOSPHATE 259.0909 MEQ IV (23:59)
[2024-09-17] VITALS (48 sets, daily range): BP systolic 79–129; BP diastolic 37–68; PULSE 86; O2SAT 92; BMI 31.6
--- NOTE | 2024-09-17 00:07 | PTCARENOTE ---
BMP noted, order received. Patient repositioned. Attempted to wean Levophed and oxygen- unsuccessful. Family remains at bedside.
[2024-09-17 00:09] LABS: Glucose - Point of Care 106 mg/dl (70-99)
[2024-09-17] MEDS: DILAUDID 0.5 MG IV ×4 (01:03→14:09)
[2024-09-17] MEDS: HEPARIN 25000 UNITS/250 ML IV ×2 (01:58→14:45)
[2024-09-17 02:12] LABS: Glucose - Point of Care 109 mg/dl (70-99)
[2024-09-17 04:20] LABS: Glucose - Point of Care 110 mg/dl (70-99)
[2024-09-17] MEDS: OFIRMEV 100 IV ×3 (04:34→20:08)
[2024-09-17 04:50] LABS: APTT 68.4 Sec (23.4-35.0)
[2024-09-17 04:53] LABS: Hematocrit 26.6 % (37.0-47.0); Hemoglobin 8.9 g/dL (12.0-16.0); Mean Corp Hgb Conc. 33.5 g/dL (33.0-37.0); Mean Corpuscular Hgb 29.4 pg (27.0-31.0); Mean Corpuscular Volume 87.8 fL (81.0-99.0); Mean Platelet Volume 11.5 fL (7.4-10.4); Platelet Count 128 10^3/uL (130-400); Red Blood Cell Count 3.03 10^6/uL (4.20-5.40); Red Cell Dist. Width 14.5 % (11.5-14.5); White Blood Cell Count 4.5 10^3/uL (4.8-10.8)
[2024-09-17 05:03] LABS: Blood Urea Nitrogen 51 mg/dl (7-17); Calcium 7.7 mg/dl (8.4-10.2); Carbon Dioxide 25 mmol/L (22-30); Chloride 105 mmol/L (98-107); Estimated Creatinine Clearance 42 ml/min; Glucose 104 mg/dl (70-99); Magnesium 1.8 mg/dl (1.6-2.3); Phosphorus 4.2 mg/dl (2.5-4.5); Potassium 3.8 mmol/L (3.5-5.1); Sodium 138 mmol/L (135-145); eGFR > 60.00
--- NOTE | 2024-09-17 05:19 | PTCARENOTE ---
Patient with 11 beat run of VTach, asymptomatic,
[2024-09-17] MEDS: ZOSYN 50 IV ×3 (06:04→17:48)
[2024-09-17 06:19] LABS: Glucose - Point of Care 89 mg/dl (70-99)
--- NOTE | 2024-09-17 06:40 | W.PN.HOSP.TC ---
Today's Communication/Plan
-
Await bowel function, c/w NG and follow with surgery recommendation
Drop in hemoglobin, combination of dilutional, mild loss and nutritional, no indication for urgent blood transfusion
c/w IV Amiodarone, might consider low dose IV BB, will d/w cardiology and ICU doctor
Aim to dc insulin gtt
Early mobility protocol
GI prophylaxis
Elevated procalcitonin, not specific for infection in post surgery pt. Empiric Zosyn. Blood culture is clean.
Assessment / Plan
Assessment / Plan
Physical exam
General: NAD, wearing NC O2, NG tube
HEENT: Dry mucous membrane, no deformity
Heart: Regular, positive murmur
Lungs: Limited with no wheezes
Abdomen: Clean surgery site, no bleeding. better BS
Musculoskeletal: No joint swelling, no edema
Skin: no rashes
Neuro, awake, following commands
Psych, no agitation
Assessment and plan
# New onset Atrial fibrillation with rapid ventricular response
better controlled.
Echo c/w hyperdynamic LV, was on Levophed gtt at the time. Overall no significant abnormality on the echo. Heart murmur c/w MR.
Post IV Cardizem gtt, now on IV Amiodarone gtt, IV Heparin gtt while NPO.
# SBO due to internal hernia with a small bowel volvulus status post diagnostic laparoscopy that was converted to exploratory laparotomy with lysis of adhesions by Dr. Fagan on September 13.
Abdominal discomfort on right side
Better bowel sounds
Postoperative ileus. Await bowel function.
-c/w IV NG on suction
- Started on TPN on 09/15
-NPO
# lactic acidosis, c/w hypotension
Blood culture is clean
# Positive troponin
likely c/w Non ischemic injury of myocardium
# Postoperative hypovolemic shock
s/p IVF, now weaning down Levophed gtt
# Leukopenia, reactive to stress. Now resolving.
Started on Empiric IV Zosyn by ICU doctor on 09/15
Elevated procalcitonin not specific post surgery and trauma, not necessarily reflective of active infection. Will c/w Zosyn until more stability and getting result of blood culture
Possible neutropenia
Afebrile
# Acute kidney injury secondary to hypovolemia. Improving.
s/p, now on TPN. Monitor for retention
#Hypomagnesemia, replaced
#Post operative mild acute blood loss anemia with dilutional drop
Monitor H&H while on heparin gtt
# IDDM with hyperglycemia
Continue with Q6 H insulin at 4 units
c/w ISS
_ will wean off insulin gtt
-Holding oral agents.
# hyponatremia
Mild
#Primary HTN
Currently in shock and hypotensive. Off oral medications.
# Hld
-Hold until able to tolerate po
# History of Dysphagia from Schatzki's ring status post esophageal dilation
Code Status -per patient wishes, changed to full code
Total time spent to see the patient, examine the patient on the floor, review data and lab results, discuss treatment plan with patient, nursing staff around 57 minutes
Anticipated Discharge: > 48 hours
Subjective/Interval History
-
Date of Service: September 17, 2024
No fevers
No hypotension
No chest pain
Not passing gas
Nurse: tolerated TPN over night
Objective Data
-
Labs:
Laboratory Results
09/16/24 09/16/24 09/17/24
20:20 21:55 04:10
WBC 4.5 L
Hgb 8.9 L
Hct 26.6 L
Plt Count 128 L D
APTT 60.5 H 68.4 H
Sodium 136 138
Potassium 3.6 3.8
Chloride 104 105
Carbon Dioxide 26 25
BUN 51 H 51 H
Creatinine 0.9 0.9
Glucose 114 H 104 H
Calcium 8.1 L 7.7 L
09/17/24
11:15
WBC
Hgb
Hct
Plt Count
APTT Pending
Sodium
Potassium
Chloride
Carbon Dioxide
BUN
Creatinine
Glucose
Calcium
Vital Signs:
Vital Signs
Temp Pulse Resp BP Pulse Ox
98.1 F 103 16 122/68 97
09/17/24 04:00 09/17/24 05:30 09/17/24 05:30 09/17/24 05:00 09/17/24 05:30
I&O
09/15/24 09/16/24 09/17/24
06:59 06:59 06:59
Intake Total 3782.5 / 3916.5 4284.6 / 4477.1 3767.1 / 3767.1
Output Total 3205 / 3205 1805 / 1805 2250 / 2250
Balance 577.5 / 711.5 2479.6 / 2672.1 1517.1 / 1517.1
--- NOTE | 2024-09-17 07:34 | W.PN.INTV ---
Today's Communication / Plan
Recommendations
Doing well, weaned off pressors this AM
Pain control
CT AP stable, reviewed case with surgery team
Continue NGT to suction, TPN
PT/OT, OOB
Diuresis added
IV heparin on, follow plts
Transfer to IMU, we will sign off upon transfer
Assessment
-
Patient is an 84-year-old female past medical history of insulin-dependent diabetes, hypertension, hyperlipidemia presenting to ER with 2 days of abdominal pain, associated with 1-2 episodes of nonbloody and nonbilious emesis. On arrival in the
emergency department she had a low-grade temp of 100.2, blood pressure was stable at 111/60 with a pulse of 83 she was at 95% on room air. He had a white count of 16.3 with the rest of the CBC unremarkable. CT of the abdomen pelvis showed acute
small bowel obstruction in the proximal ileum at the pelvic junction. Underwent diag lap with conversion to ex lap and PANCHITO 09/13/24, transferred to ICU postop for further care.
Acute SBO likely from prior adhesions status post diagnostic laparoscopy converted to ex lap with lysis of adhesions 09/13/2024
Abdominal pain
Oliguria
Leukopenia
TYRON, creatinine 1.2
Metabolic acidosis, mild
Hyperglycemia
Hypocalcemia
Elevated troponin
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
Hypertension
Hyperlipidemia
Insulin-dependent diabetes
Infected IUD status post complex total abdominal hysterectomy
Colon polyps
History of food impaction status post EGD and removal 08/05/2023
Plan
No current signs of metabolic encephalopathy or MS changes/following commands
Pain at R side
Pain/sedation: PRN
RASS goals: 0
Hemodynamically stable, off low dose pressors
Afib noted also now on Amio IV
Cards following, follow up recs
Cardiac history reviewed--HTN, hold meds for now
No prior ECHO for review
Monitor on telemetry
Oxygen needs: supplemental o2
Prior history of lung disease: none
Supplemental O2 as indicated to maintain sats > 89%
CXR/CT reviewed indicating NAD, reimage PRN
Repeat CXR/AXR --ileus likely
NPO, resume diet when able
NGT in place s/p PANCHITO/exlap by Gen surg
PICC line w/ TPN continued
Aspiration precautions, HOB > 30 degrees
GI prophylaxis if indicated
CT AP IV -- stable findings, no surgical intervention needed
TYRON present, mild--creat 1.3 (BL 0.7-0.9)--resolved
Repeat labs to follow
Void trials
Follow urine output, critical I/Os
Replete electrolytes as needed
Procal elevated
Continue empiric abx
Olguin culture
Follow fever trend, WBC count
CT AP if not improving
CBC stable, no signs of bleeding or coagulopathy.
Leukopenia noted, follow clinically
DVT prophylaxis as assessed based on risk, including mechanical SCDs
Can transfuse if indicated for Hb <7, plt < 10
INR WNL
No prior h/o thyroid disease
H/o diabetes, can continue on home meds, SS for coverage
HbA1c 7.2 (07/2023)
Diagnostic Data
Chest X-Ray: 09/13/24- Nasogastric tube extends into the stomach. No acute cardiopulmonary process.
08/05/23- Mild lingular subsegmental atelectasis and/or scarring. No pneumothorax.
CT Scan: AP 09/11/24- 1. Distal small bowel obstruction with transition point in the low anterior pelvis.
Echo:
PFT's:
Reports and relevant images were personally reviewed.
-----
Critical care time 35 mins -- this includes review of history, physical exam, medications, hemodynamic/ventilator parameters, laboratory data, imaging and discussion with house staff, pharmacy, respiratory therapy, macroeconomics professor, and nursing.
Subjective Dataa
Subjective Data
Date of Service:
Date of Service: September 17, 2024
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
Subjective:
remains stable, low does levo turned off this AM
Pain remains, no other complaints
Objective Data
Data Reviewed
Vital Signs / I&O / Oxygen:
Vital Signs
Temp Pulse Resp BP Pulse Ox
98.1 F 82 18 109/56 97
09/17/24 04:00 09/17/24 07:00 09/17/24 07:00 09/17/24 07:00 09/17/24 07:00
Intake and Output
09/16/24 09/17/24 09/18/24
06:59 06:59 06:59
Intake Total 4284.6 / 4477.1 3767.1 / 3767.1
Output Total 1805 / 1805 2250 / 2250
Balance 2479.6 / 2672.1 1517.1 / 1517.1
SaO2 97
Nasal Cannula flow liters per 2
minute
Physical Exam
General: Comfortable, Pain (R sided abdominal pain) and Other (NAD)
HEENT: Normocephalic, Anicteric and Moist Mucous Membranes
Cardiovascular: S1-S2 and Regular Rhythm
Respiratory: Crackles and Non-Labored Respirations
GI: Soft, Non Distended, Tender and NG Tube
Neurology: Awake, Alert, Oriented and No Motor Deficits
Skin: Warm and Dry
Labs/Micro/Reports
Lab Data
09/17/24 04:10
09/17/24 04:10
Laboratory Results
09/16/24 09/16/24 09/16/24
13:17 13:57 20:20
APTT 62.2 H 63.4 H 60.5 H
09/17/24
04:10
APTT 68.4 H
Microbiology
09/15/24 16:37 Blood/Venous Blood Culture - Preliminary
No Growth in 24 hours- Final report to follow
[2024-09-17] MEDS: PROTONIX IV 40 MG IV (07:52)
[2024-09-17] MEDS: NSS (PRESERVATIVE FREE) 10 ML IV (07:53)
[2024-09-17] MEDS: LEVOPHED 250 IV (08:00)
[2024-09-17 08:08] LABS: Glucose - Point of Care 131 mg/dl (70-99)
[2024-09-17] MEDS: NOVOLIN R INSULIN INFUSION 100 IV (08:36)
--- NOTE | 2024-09-17 08:45 | PTCARENOTE ---
Patient received in bed, AAOx3, HAAS. Sinus rhythm on monitor, afebrile, blood pressure as documented. Palpable pulses throughout, +1 edema to bilateral hands. Lungs with fine crackles bibasilar, pulse ox 98% on 2L. [place] sump on left nare
draining dark green, irrigated. Abdomen round with hypoactive bowel sounds. Squires catheter draining linda urine. Midline abdominal incision, lap site dressings intact. RDL PICC with Amiodarone. Levophed and TPN infusing as ordered. #22 g in
left hand with insulin gtt infusing as documented. #22 g in LAC with Heparin gtt infusing as documented. Standby asst to recliner, marched in place, tolerated well.
--- NOTE | 2024-09-17 08:55 | PN.DE.MGMTRT ---
Insulin Management
- -
09/17/2024: Diabetes Management Consult
84 year old Female with PMH: IDDM, HTN, HLD and a complex total abdominal hysterectomy for an infected IUD 50 years ago. Pt presented to the hospital with 2 days of abdominal pain on 09/13, found to have SBO 2/2 adhesions. Now POD#3 S/P DIAG-LAP
converted to EXP-LAP With Extensive PANCHITO for Internal Hernia with SB Volvulus and Acute SBO. 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 A1C 7.7%, Cr 0.9, eGFR>60
Pt remains NPO, on TPN contributing to Hyperglycemia, and initiated on glycemic protocol. Current glucose 89 to 131, requiring 0.6 to 8 units of insulin/hr.
Dr. Alvarez has placed SQ insulin orders to transition pt off drip. Lantus 15 units x1, NovoLog 3 units Q8hrs and low corrective.
Will start Lantus 15 units daily in AM. Change NovoLog to Q6 hrs and moderate corrective Q6hrs.
Plan of care discussed with Pt's Nurse and Dr. Alvarez
Diabetes History
- -
Type of Diabetes: 2 requiring insulin
Pre-Admission Diabetes Regimen
09/16/24 09/17/24
21:55 04:10
Creatinine 0.9 0.9
Insulin Pump Settings
IP Diabetes Regimen
09/16/24 09/16/24 09/16/24
09:08 09:59 11:03
Glucose
POC Glucose 190 H 150 H 123 H
09/16/24 09/16/24 09/16/24
12:08 13:00 15:04
Glucose
POC Glucose 120 H 130 H 118 H
09/16/24 09/16/24 09/16/24
17:05 18:02 19:01
Glucose
POC Glucose 124 H 117 H 110 H
09/16/24 09/16/24 09/16/24
20:03 21:03 21:54
Glucose
POC Glucose 114 H 86 118 H
09/16/24 09/16/24 09/17/24
21:55 23:58 02:00
Glucose 114 H
POC Glucose 106 H 109 H
09/17/24 09/17/24 09/17/24
04:08 04:10 06:08
Glucose 104 H
POC Glucose 110 H 89
09/17/24
07:50
Glucose
POC Glucose 131 H
Patient Education
[2024-09-17] MEDS: ZOFRAN 4 MG IV ×2 (09:06→20:27)
--- NOTE | 2024-09-17 10:01 | W.PN.GS2 ---
Addendum entered and electronically signed by Will Cloud MD 09/17/24 17:02:
Patient seen in follow-up this afternoon with nurse practitioner.
Agree with documented progress note. Patient's daughter at bedside.
Patient states that she is feeling a bit better. Less abdominal pain. Tolerating NG tube well. No flatus or BMs.
Has weaned off all pressor support
AFVSS (tachycardia stable)
NAD AAOx3
ABD: Softly distended, tenderness palpation predominantly right abdomen but no guarding on mild palpation today
Midline laparotomy incision with clean dressing in place
Assessment/plan: Continue current postoperative care
CT imaging from yesterday reviewed with patient and her daughter at bedside > typical postoperative findings no signs of bowel compromise
NG tube/TPN
Awaiting signs of postoperative GI coverage which will likely be delayed operative findings and severity of presenting small bowel obstruction
Original Note:
Today's Communication / Plan
-
NPO/NGT/TPN
Assessment / Plan
-
Assessment: 84F POD#4 s/p Ddx lap --> ex lap with extensive PANCHITO for internal hernia/SBO (09/13/2024) -
History of IDDM, hypertension, hyperlipidemia; admitted with SBO which failed to improve with nonoperative management
A-fib with RVR -> now in sinus rhythm, on amnio drip
Postoperative hypotension -likely multifactorial -hypovolemia postop/under resuscitation, previous A-fib with RVR
TYRON -creatinine normalized; BUN remains elevated
Remains on Levophed (2mcg)
Leukopenia improving
Heparin drip; hemoglobin stable 10.0 - acute blood loss anemia from surgery and hemodilutional (drifting down with diuresis as expected)
Insulin drip now on hold
NG tube in place with bilious contents
Blood/urine cx NGTD
CT abd/pelvis on 09/16 negative for any evidence of postoperative bowel compromise or threat (enterotomy, ischemia or organizing fluid collection/abscess). Typical postoperative appearance of ileus/recovering bowel from lysis of adhesions.
Plan: Will follow labs/exams
Empirically on Zosyn
TPN renewed- blood glucose management as per primary team
monitor I's and O's and wean pressors as able
NPO/NG tube to LIWS
Protonix for GI prophylaxis
Heparin/Amio drips with postop A-fib episode
Antiemetics/Analgesics
Subjective Data
-
Date of Service: September 17, 2024
Patient seen and examined at bedside. Intermittent nausea, managed well with zofran. Not yet passing flatus. Intermittent abdominal pain but manageable on current regimen. OOB to chair.
Objective Data
-
Intake and Output
09/16/24 09/17/24 09/18/24
06:59 06:59 06:59
Intake Total 4284.6 / 4477.1 3767.1 / 3857.7 275.4 / 275.4
Output Total 1805 / 1805 2250 / 2250 100 / 100
Balance 2479.6 / 2672.1 1517.1 / 1607.7 175.4 / 175.4
Intake:
IV fluids (Total) 4194.6 / 4387.1 3077.1 / 3167.7 275.4 / 275.4
AMIO GTT 366.8 / 383.5 400.8 / 417.5 50.1 / 50.1
Insulin 38.6 / 39.2 9.2 / 9.2
Levophed 112.8 / 131.6 315.7 / 327.0 30.1 / 30.1
Lr 1,000 ml @ 100 mls/hr IV . 1700 / 1800 900 / 900
Q10H [facility] Rx#:[id number]
Lr 1,000 ml @ 50 mls/hr IV . 350 / 350
Q20H [facility] Rx#:[id number]
TPN 962 / 1005 1032 / 1075 129 / 129
cardizem 115 / 115
heparin 300 / 314 390 / 409 57 / 57
brandon 288 / 288 0 / 0
IV piggybacks 600 / 600
Amount instilled into GI Tube ( 90 / 90
Total)
[place] Sump 90 / 90 90 / 90
Output:
Gastrointestinal tube output ( 1200 / 1200 600 / 600
Total)
[place] Sump 1200 / 1200 600 / 600
Urine, Squires 605 / 605 1650 / 1650 100 / 100
Vital Signs
Temp Pulse Resp BP Pulse Ox
98.2 F 101 18 114/61 97
09/17/24 08:00 09/17/24 09:45 09/17/24 09:45 09/17/24 09:30 09/17/24 09:45
Lab Results
09/17/24 04:10
09/17/24 04:10
Calcium 7.7 mg/dl (8.4-10.2) L 09/17/24 04:10
Phosphorus 4.2 mg/dl (2.5-4.5) 09/17/24 04:10
Magnesium 1.8 mg/dl (1.6-2.3) 09/17/24 04:10
Total Bilirubin 0.6 mg/dl (0.2-1.3) 09/14/24 20:42
AST 32 U/L (14-36) 09/15/24 04:21
ALT 21 U/L (0-35) 09/15/24 04:21
Alkaline Phosphatase 63 U/L (38-126) 09/14/24 20:42
Total Protein 4.7 g/dl (6.3-8.2) L 09/14/24 20:42
Albumin 2.5 g/dl (3.5-5.0) L 09/14/24 20:42
Physical Exam
-
NAD but acutely ill-appearing
ABD: Distended, tenderness to palpation with voluntary guarding, no rebound.
Lap surgical sites with tila
NGT with bilious outputs
Midline laparotomy Aquacel dressing left in place as appears dry and not saturated, some strikethrough
--- NOTE | 2024-09-17 11:01 | W.PN.INTV ---
Today's Communication / Plan
Recommendations
*
Continue to Keep Incisions CDI
Continue to Encourage Light Activity / Ambulation OOB / PT
Continue appropriate/supportive Fluid replacement/management, Close In/Outs Monitoring - In the Setting of POD#4 (POD Fluid Third Spacing)
Closely Monitoring / Replacement of Electrolytes (In the setting of Multifactorial Post-Op Ileus)
Consider Repeat further Imaging studies for better characterization of Post-Op Ileus/Intra ABD Process Progression as needed / Per GS Recommendations
Continue to Follow GS Team Recommendations
Assessment
-
ASSESSMENT:
84 yo Female, With a significant PSHx of complex total abdominal hysterectomy for an infected IUD 50 years ago and a relevant PMHx for Insulin-Dependent DM, HTN & HLD;
Currently on POD#4 S/P DIAG-LAP converted to EXP-LAP With Extensive PANCHITO for Internal Hernia With SB Volvulus and Acute SBO (On ) by Dr. Fagan,
Who was brought to the ICU for further Post-Operative Care/management yesterday (Friday - ).
PLAN:
NEURO
RASS Zero / WO Sedation
Well-Controlled Pain
Continue on Multimodal Pain Analgesia - With Acetaminophen 650mg IV Q4hrs / Dilaudid PRN for Severe/Refractory Pain
Slowly decreasing Opioids
Continue Conservative/Supportive Delirium Preventing Measures
CV
Continue on Pressors - Currently at 2mcg of Levo
Continue on Amio for Afib W. RVR (On ECG Yesterday)
Mild Concentric LVH W. Preserved EF (On Previous ECHO)
RESPI
Continue Aspiration Precautions / Elevate HOB > 35 Degrees
Currently Saturating Well at RA
Continue Conservative Respiratory Supportive Measures
Incentive Spirometry
Continue to Encourage Light Activity / Ambulation OOB
Cont. TP
GI
Currently on NPO/TPN/Ice Chips
Continue on TPN
Consider to Slowly advance Diet as tolerated
Suspected Post-Operative Ileus - Currently Improving per last CT ABD/Pelvis W/WO yesterday
No Imaging performed today
Closely Monitor/Manage/Replace - Electrolytes in the setting of Post-Op Ileus
Cont. NGT Suctioning as needed / Plan for NGT Trial in upcoming days if appropriate and moving bowels
GI Ppx - Protonix 40mg IV QD
RENAL/
Continue to Follow Creat / BUN in the setting of Previous TYRON
Continue to monitor I/O's / Urine Output
Currently On POD#4 - Consider POD Third spacing / Plan Accordingly
Cont. IV fluid Hydration & Supportive Care
Continue to closely Monitor Electrolytes & Renal lab parameters and clinically correlate w. pt current condition
ID
Continue on Zosyn (Broad-Spectrum/Anaerobic Coverage in the setting of recent OPEN ABD Surgery & Mechanical Manipulation of the Bowel)
Cont to follow Temp
Cont. to follow WBC
Cont to Closely Monitor for signs of Infection
Continue to follow/ correlate Laboratory findings with Pt Clinical Presentation / Close Pt Monitoring
HEMME/ONC
Cont. on 25,000 Units of Heparin IV
Continue to Encourage Light Activity / Ambulation OOB
Transfuse as Needed
ENDOCRINE
Continue to Monitor Glucose level
Subjective Dataa
Subjective Data
Date of Service:
Date of Service: September 17, 2024
Chief Complaint: Devulcanizer Head Follow Up
Subjective:
Pt was seen and evaluated at the bedside this morning.
No Acute O/N Events / Besides a Transient Tachycardic episode of 103bpm today around 5 AM and an associated BP of 96/49mmHg / Currently Resolved
VSS AF
Pt had no complains this morning
Denies any significant Pain / Only reported Mild RLQ TTP on ABD Exam this Am
Pt was noted to be in NAD / AAOx3
Comfortably resting in Chair / Speaking in full sentences
NO BM / NO Gas at this time
Continue on TPN
NPO
Improved Glucose Levels
Continue on Amio
Currently receiving 2mcgs of Levo
NGT - Continue to Drain / Brownish Fluid Drainage
Incisions - Moose Pass in Place / CDI / No Erythema / No Discharge
Objective Data
Data Reviewed
Vital Signs / I&O / Oxygen:
Vital Signs
Temp Pulse Resp BP Pulse Ox
36.8 C 97 20 116/55 96
09/17/24 08:00 09/17/24 10:00 09/17/24 10:00 09/17/24 10:00 09/17/24 10:00
Intake and Output
09/16/24 09/17/24 09/18/24
06:59 06:59 06:59
Intake Total 4284.6 / 4477.1 3767.1 / 3857.7 369.6 / 369.6
Output Total 1805 / 1805 2250 / 2250 100 / 100
Balance 2479.6 / 2672.1 1517.1 / 1607.7 269.6 / 269.6
SaO2 96
Nasal Cannula flow liters per 2
minute
Physical Exam
General: Pain (R sided abdominal pain) and Other (NAD)
HEENT: Normocephalic, Anicteric and Moist Mucous Membranes
Cardiovascular: S1-S2 and Regular Rhythm
Respiratory: Crackles and Non-Labored Respirations
GI: Soft, Non Distended, Tender and NG Tube
Neurology: Awake, Alert, Oriented and No Motor Deficits
Skin: Warm and Dry
Labs/Micro/Reports
Lab Data
09/17/24 04:10
09/17/24 04:10
Laboratory Results
09/16/24 09/16/24 09/16/24
13:17 13:57 20:20
APTT 62.2 H 63.4 H 60.5 H
09/17/24
04:10
APTT 68.4 H
Microbiology
09/15/24 16:30 Urine Urine Culture - Final
NO GROWTH
09/15/24 16:37 Blood/Venous Blood Culture - Preliminary
No Growth in 24 hours- Final report to follow
[2024-09-17] MEDS: LANTUS 0.15 UNITS SC (11:19)
[2024-09-17] MEDS: NOVOLOG FLEXPEN 3 UNITS SC ×2 (11:20→17:56)
[2024-09-17] MEDS: NOVOLOG FLEXPEN-MODERATE RESISTANCE 3 UNITS SC (11:20)
[2024-09-17 11:25] LABS: Glycohemoglobin (HgbA1c) 7.7 % (4.0-5.6)
[2024-09-17 11:26] LABS: Glucose - Point of Care 233 mg/dl (70-99)
[2024-09-17 11:33] LABS: Hematocrit 28.6 % (37.0-47.0); Hemoglobin 9.5 g/dL (12.0-16.0); Mean Corp Hgb Conc. 33.2 g/dL (33.0-37.0); Mean Corpuscular Hgb 29.4 pg (27.0-31.0); Mean Corpuscular Volume 88.5 fL (81.0-99.0); Platelet Count 120 10^3/uL (130-400); Red Blood Cell Count 3.23 10^6/uL (4.20-5.40); Red Cell Dist. Width 14.6 % (11.5-14.5); White Blood Cell Count 6.1 10^3/uL (4.8-10.8)
[2024-09-17 11:40] LABS: APTT 46.5 Sec (23.4-35.0)
[2024-09-17 11:45] LABS: Phosphorus 2.8 mg/dl (2.5-4.5)
--- NOTE | 2024-09-17 13:09 | PTCARENOTE ---
Pt assisted back to bed after 4hr in recliner. Heparin gtt increased due to heparin gtt Insulin gtt off as ordered and Lantus given. Levophed weaned off. Currently on room air.
--- NOTE | 2024-09-17 13:55 | CM ---
CM following re: discharge planning.
Discussed in Rounds, reviewed pt's chart, met with pt.
Pt is POD#5 s/p Ddx lap --> ex lap with extensive PANCHITO for internal hernia/SBO. General surgery following, continue supportive care.
PT and OT evaluations noted - home PT/OT recommended. Pt will stay at daughter's house: [address]
[facility] liaison following.
D/C plan: home to daughter's house with [facility] and family support.
CM will follow with discharge plan updates as hospitalization progresses
--- NOTE | 2024-09-17 13:58 | W.PN.CARDCBS ---
Today's Communication / Plan
-
Continue IV amiodarone, may transition to bolus dosing in a.m.
Continue heparin if no evidence of HIT, defer to critical care and no objections to stopping if needed as patient is now in sinus rhythm on amiodarone
Increase IV Lasix, weight is 11 kg above admission weight
May need to supplement potassium, ideally can correct through TPN
Overall she continues to progress
Impression / Plan
-
Family Physician: Natasha Bojorquez
Cardiology: None prior to admission
Impression:
Presented 09/11/2024 with abdominal pain, fever, leukocytosis
Acute SBO likely from prior adhesions status post diagnostic laparoscopy converted to ex lap with lysis of adhesions 09/13/2024
Leukopenia
TYRON, creatinine 1.2
Metabolic acidosis, mild
Hyperglycemia
Hypocalcemia
Atrial fibrillation with rapid ventricular response, new diagnosis
Abnormal troponin
Type 2 diabetes, insulin dependent
Hypertension
Hyperlipidemia
Dysphagia from Schatzki's ring status post esophageal dilation
Colon polyps
Hysterectomy
Echo 09/15/2024: Small left ventricle, mild LVH, mid cavity gradient, EF 65-70%, rhythm is A-fib, normal RV, trace MR, aortic sclerosis/mild stenosis peak gradient 17 and 9, valve area 1.8 cm2. Pulmonary artery pressure 38. Small pericardial
effusion
Plan:
She continues to improve postop day 4 status post exploratory laparotomy with lysis of adhesions for small bowel obstruction and internal hernia with small bowel volvulus.
She remains in sinus rhythm on IV amiodarone. No recurrences of atrial fibrillation.
Ideally would continue IV heparin given recent AF but if questions regarding hip, heparin could be stopped at low embolic risk as she is now in sinus rhythm and duration of atrial fibrillation was not long. Hopefully bowel function will return and
we can begin Eliquis.
Continue IV amiodarone. We could probably transition to once daily daily bolus in the next 24 to 48 hours. Await return of bowel function and p.o. dosing.
Increase furosemide to 40 mg IV twice daily. She will likely need potassium supplementation.
Wean Levophed.
Troponin was detectable but non-ACS related myocardial injury that at present does not require further intervention
HPI 09/15/2024:
Patient is an 84-year-old female with past medical history significant for insulin-dependent diabetes, hypertension, hyperlipidemia who presents to the emergent department 09/11/2024 with 2 days of abdominal pain and was found to have low-grade
fever and leukocytosis. CT of the abdomen pelvis showed acute small bowel obstruction in the proximal ileum at the pelvic junction. Underwent diag lap with conversion to ex lap and PANCHITO 09/13/24. In the evening of 09/14/2024 patient developed
atrial fibrillation with rapid ventricular response. Patient was provided IV Lopressor with improvement of heart rates and started on IV Cardizem and heparin drip. Patient hypotensive requiring IV pressors with Levophed.
Patient's son at bedside. He helps provide history. Patient has no prior cardiac history and has never seen a floor tiling professional. Patient notes some mild intermittent palpitations but denies chest pain or shortness of breath
Progress Note - Affiliate Marketing Manager
Subjective
Date of Service: September 17, 2024:
Patient sitting in chair, still on low-dose norepinephrine, still in normal sinus rhythm
Current medications: IV pantopra TPN, insulin zole, IV heparin, IV amiodarone, furosemide IV 20 every afternoon
101/41, pulse 79, respirate 15, afebrile, intake and output +0.6 L no distress, sitting up, lungs relatively clear, regular rate and rhythm, no obvious murmurs some edema, abdomen with dressing intact
Chest x-ray small right pleural effusion, possibly mild vascular congestion weight is 75.9 kg, up 2 kg from yesterday and 11 kg since July 2023
Hemoglobin is 9.5, platelets have dropped to 120, BUN and creatinine are 51 and 0.9, potassium is 3.8
Objective
Labs:
09/17/24 11:12
09/17/24 04:10
Labs
Hgb 9.5 g/dL (12.0-16.0) L 09/17/24 11:12
Hct 28.6 % (37.0-47.0) L 09/17/24 11:12
Plt Count 120 10^3/uL (130-400) L 09/17/24 11:12
PT 14.6 Sec (11.4-14.6) 09/13/24 21:03
INR 1.10 09/13/24 21:03
APTT 46.5 Sec (23.4-35.0) H 09/17/24 11:08
Sodium 138 mmol/L (135-145) 09/17/24 04:10
Potassium 3.8 mmol/L (3.5-5.1) 09/17/24 04:10
BUN 51 mg/dl (7-17) H 09/17/24 04:10
Creatinine 0.9 mg/dL (0.6-1.0) 09/17/24 04:10
Glucose 104 mg/dl (70-99) H 09/17/24 04:10
Troponins
09/14/24
20:52
Troponin I 0.043 H*
Vital Signs and I&O:
Vital Signs
Temp Pulse Resp BP Pulse Ox
37.0 C 79 15 101/41 93
09/17/24 12:13 09/17/24 13:00 09/17/24 13:00 09/17/24 13:00 09/17/24 13:00
Vital Signs
Temp Pulse Resp BP Pulse Ox
37.0 C 79 15 101/41 93
09/17/24 12:13 09/17/24 13:00 09/17/24 13:00 09/17/24 13:00 09/17/24 13:00
Intake & Output
09/15/24 09/16/24 09/17/24 09/18/24
07:59 07:59 07:59 07:59
Intake Total 3761.5 / 3895.5 4535.6 / 4535.6 3472.7 / 3563.3 697.6 / 697.6
Output Total 3205 / 3205 1805 / 1805 2250 / 2350 285 / 285
Balance 556.5 / 690.5 2730.6 / 2730.6 1222.7 / 1213.3 412.6 / 412.6
Physical Exam
Physical Exam
See above
[2024-09-17] MEDS: FLUSH (NSS) 1 FLUSH IV (14:10)
[2024-09-17] MEDS: KCL 270 MEQ IV (14:41)
[2024-09-17] MEDS: CORDARONE 518 MG IV (14:44)
--- NOTE | 2024-09-17 14:56 | PTCARENOTE ---
Pt in afib 110-120s since 1313. Pt sleeping soundly after tylenol and dilaudid for pain. Supplemental O2 and levophed remain off and VSS.
[2024-09-17] MEDS: LASIX 40 MG IV (15:32)
--- NOTE | 2024-09-17 17:20 | PTCARENOTE ---
Squires removed per protocol. Purwick in place.
[2024-09-17] MEDS: LANOXIN 250 MCG IV (17:59)
[2024-09-17] MEDS: NOVOLOG FLEXPEN-MODERATE RESISTANCE 7 UNITS SC (17:59)
[2024-09-17] MEDS: DILAUDID 0.25 MG IV ×2 (18:00→21:02)
[2024-09-17 18:07] LABS: Glucose - Point of Care 327 mg/dl (70-99)
[2024-09-17 18:53] LABS: APTT 82.9 Sec (23.4-35.0)
--- NOTE | 2024-09-17 20:00 | PTCARENOTE ---
Patient received in bed, AAOX3. Afib on monitor, afebrile, blood pressure as documented. Palpable pulses throughout, +1 edema to bilateral hands. Fine crackles bilateral base, pulse ox 94 % on room air. Benedict sump in left nare draining green,
abdomen round tender with hypoactive bowel sounds. Patient incontinent of large amount of urine. RDL PICC with TPN and Amiodarone gtt infusing as ordered. #22 g in LAC with Heparin gtt infusing as documented. Turned and repositioned. Family at
bedside.
[2024-09-17] MEDS: Parenteral Nutrition, Central 1020 IV (20:25)
[2024-09-18] VITALS (25 sets, daily range): BP systolic 96–139; BP diastolic 56–80; BMI 31.2
[2024-09-18 00:08] LABS: Glucose - Point of Care 339 mg/dl (70-99)
[2024-09-18] MEDS: ZOSYN 50 IV ×5 (00:18→23:39)
[2024-09-18] MEDS: DILAUDID 0.25 MG IV ×3 (00:19→20:59)
[2024-09-18] MEDS: LANOXIN 125 MCG IV (00:19)
[2024-09-18] MEDS: NOVOLOG FLEXPEN 3 UNITS SC ×2 (00:20→06:07)
[2024-09-18] MEDS: NOVOLOG FLEXPEN-MODERATE RESISTANCE 7 UNITS SC ×2 (00:20→06:07)
--- NOTE | 2024-09-18 01:11 | PTCARENOTE ---
Patient reassessed, medicated for pain, assists with turning in bed. Remains in afib. quiet environment maintained. Son at bedside.
[2024-09-18] MEDS: OFIRMEV 100 IV ×2 (02:40→18:04)
[2024-09-18 03:19] LABS: Hematocrit 26.4 % (37.0-47.0); Mean Corp Hgb Conc. 34.1 g/dL (33.0-37.0); Mean Corpuscular Hgb 29.4 pg (27.0-31.0); Mean Corpuscular Volume 86.3 fL (81.0-99.0); Mean Platelet Volume 11.9 fL (7.4-10.4); Platelet Count 122 10^3/uL (130-400); Red Blood Cell Count 3.06 10^6/uL (4.20-5.40); Red Cell Dist. Width 14.7 % (11.5-14.5); White Blood Cell Count 7.2 10^3/uL (4.8-10.8)
[2024-09-18 03:23] LABS: APTT 46.3 Sec (23.4-35.0)
[2024-09-18 03:41] LABS: Blood Urea Nitrogen 47 mg/dl (7-17); Carbon Dioxide 26 mmol/L (22-30); Chloride 102 mmol/L (98-107); Estimated Creatinine Clearance 42 ml/min; Glucose 354 mg/dl (70-99); Magnesium 1.5 mg/dl (1.6-2.3); Potassium 3.7 mmol/L (3.5-5.1); Sodium 136 mmol/L (135-145); eGFR > 60.00
[2024-09-18] MEDS: HEPARIN 25000 UNITS/250 ML IV ×2 (04:58→14:55)
[2024-09-18] MEDS: MAGNESIUM SULFATE 50 IV (05:11)
--- NOTE | 2024-09-18 05:15 | PTCARENOTE ---
Patient reassessed, sleeping comfortably, bert care given. Son at bedside.
[2024-09-18 06:15] LABS: Glucose - Point of Care 320 mg/dl (70-99)
--- NOTE | 2024-09-18 06:33 | W.PN.HOSP.TC ---
Today's Communication/Plan
-
Will add more K and Mg to TPN
Increase insulin to balance dextrose infusion she is receiving from TPN and iV medication drip
PT/OT and out of bed protocol
NG on suction, still high out put, f/w surgery recommendations
c/w IV Lasix, weight is coming down
Assessment / Plan
Assessment / Plan
Physical exam
General: NAD, wearing NC O2, NG tube
HEENT: Dry mucous membrane, no deformity
Heart: Regular, positive murmur
Lungs: Limited with no wheezes
Abdomen: Clean surgery site, no bleeding. better BS
Musculoskeletal: No joint swelling, no edema
Skin: no rashes
Neuro, awake, following commands
Psych, no agitation
Assessment and plan
# New onset Atrial fibrillation with rapid ventricular response
better controlled.
Echo c/w hyperdynamic LV, was on Levophed gtt at the time. Overall no significant abnormality on the echo. Heart murmur c/w MR.
Post IV Cardizem gtt, now on IV Amiodarone gtt, IV Heparin gtt while NPO.
# SBO due to internal hernia with a small bowel volvulus status post diagnostic laparoscopy that was converted to exploratory laparotomy with lysis of adhesions by Dr. Fagan on September 13.
Abdominal discomfort on right side
Better bowel sounds
Postoperative ileus. Await bowel function. Surgery is following, appreciate help
-c/w IV NG on suction
- Started on TPN on 09/15
-NPO
#Drop in HGB, anemia due to dilutional and acute blood loss anemia. No signs of active bleeding. Will give blood transfusion if HGB less than 8.
# Hypomagnesemia
replace
# lactic acidosis, c/w hypotension
Blood culture is clean
# Positive troponin
likely c/w Non ischemic injury of myocardium
# Volume overload due to fluid retention, acute diastolic heart failure due to fluid shift and fluid given in bert-operative period. Now on Lasix
# Postoperative hypovolemic shock
s/p IVF, off Levophed gtt
# Leukopenia, reactive to stress. Now resolved.
Started on Empiric IV Zosyn by ICU doctor on 09/15, we can do empiric 7 days of IV Abx.
Elevated procalcitonin not specific post surgery and trauma, not necessarily reflective of active infection. Will c/w Zosyn until more stability and negative blood culture. Plan to do 7 days course.
Possible neutropenia
Afebrile
# Acute kidney injury secondary to hypovolemia. Improving.
s/p, now on TPN. Monitor for retention
#Hypomagnesemia, replaced
#Post operative mild acute blood loss anemia with dilutional drop
Monitor H&H while on heparin gtt
# IDDM with hyperglycemia
Continue with Q6 H insulin at 4 units
c/w ISS
_ will wean off insulin gtt
-Holding oral agents.
# hyponatremia
Mild
#Primary HTN
Currently in shock and hypotensive. Off oral medications.
# Hld
-Hold until able to tolerate po
# History of Dysphagia from Schatzki's ring status post esophageal dilation
Code Status -per patient wishes, changed to full code
Total time spent to see the patient, examine the patient on the floor, review data and lab results, discuss treatment plan with patient, nursing staff around 57 minutes
Anticipated Discharge: > 48 hours
Subjective/Interval History
-
Date of Service: September 18, 2024
No chest pain
No sob
No fevers
not passing gas
Objective Data
-
Labs:
Laboratory Results
09/17/24 09/18/24 09/18/24
18:34 02:50 02:55
WBC 7.2
Hgb 9.0 L
Hct 26.4 L
Plt Count 122 L
APTT 82.9 H 46.3 H
Sodium 136
Potassium 3.7
Chloride 102
Carbon Dioxide 26
BUN 47 H
Creatinine 0.9
Glucose 354 H
Calcium 8.0 L
09/18/24
09:30
WBC
Hgb
Hct
Plt Count
APTT Pending
Sodium
Potassium
Chloride
Carbon Dioxide
BUN
Creatinine
Glucose
Calcium
Vital Signs:
Vital Signs
Temp Pulse Resp BP Pulse Ox
98.2 F 109 20 129/73 94
09/17/24 23:23 09/18/24 05:00 09/18/24 05:00 09/18/24 05:00 09/18/24 05:00
I&O
09/16/24 09/17/24 09/18/24
06:59 06:59 06:59
Intake Total 4284.6 / 4477.1 3767.1 / 3857.7 2932.1 / 2932.1
Output Total 1805 / 1805 2250 / 2250 194 / 194
Balance 2479.6 / 2672.1 1517.1 / 1607.7 987.1 / 987.1
[2024-09-18] MEDS: LASIX 40 MG IV ×2 (08:23→18:02)
[2024-09-18] MEDS: PROTONIX IV 40 MG IV (08:23)
[2024-09-18] MEDS: NSS (PRESERVATIVE FREE) 10 ML IV (08:24)
[2024-09-18] MEDS: LANTUS 0.25 UNITS SC (08:24)
--- NOTE | 2024-09-18 08:55 | W.PN.GS2 ---
Addendum entered and electronically signed by Will Cloud MD 09/18/24 18:09:
Patient seen and examined this a.m. 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 Agree with documented progress note. This is a delayed entry.
Continued clinical improvement and off of vasopressor support with improving hemodynamics
Abdominal pain slowly improving
No flatus or BMs yet
AF -VSS (tachycardia)
NAD AAOx3 -patient's son at bedside
ABD: Softer, less distended, tenderness palpation right side but less rebound/guarding
Midline postoperative surgical dressing removed and incision intact with tila. No drainage, no open wounds.
A/P: 84-year-old female POD #5 status post ex lap extensive/complete enterolysis for internal hernia/SBO
No strong signs of postoperative GI recovery, continued bilious NG tube outputs
Maintain n.p.o., NG tube decompression and TPN/supportive care
Discussed with patient and her son the possibility of a prolonged postoperative course of delayed GI recovery given description of operative findings and patient presentation. She would also potentially be at increased risk for early postoperative
small bowel obstruction but these are generally managed nonoperatively particularly as there are no signs of bowel compromise or threat.
Original Note:
Today's Communication / Plan
-
NPO/NGT/TPN
Assessment / Plan
-
Assessment: 84F who is POD#5 s/p Ddx lap --> ex lap with extensive PANCHITO for internal hernia/SBO (09/13/2024) -
History of IDDM, hypertension, hyperlipidemia; admitted with SBO which failed to improve with nonoperative management
A-fib with RVR -> on amnio and heparin drips
Postoperative hypotension - resolved, off pressors
TYRON -creatinine normalized; BUN remains elevated
Leukopenia resolved, WBC normal today
H/H relatively stable; acute blood loss anemia from surgery and hemodilutional (drifting down with diuresis)
Insulin drip off on 09/17, BG elevated in 300's with SQ insulin dosage adjustments
NG tube in place with bilious contents
Blood/urine cx NGTD
CT abd/pelvis on 09/16 negative for any evidence of postoperative bowel compromise or threat (enterotomy, ischemia or organizing fluid collection/abscess). Typical postoperative appearance of ileus/recovering bowel from lysis of adhesions.
Plan: Will follow labs/exams
Empirically on Zosyn
TPN renewed- blood glucose management as per primary team
electrolyte replacement as needed
monitor I's and O's
NPO/NG tube to LIWS
Protonix for GI prophylaxis
Heparin/Amio drips with postop A-fib episode
Antiemetics/Analgesics
Await bowel recovery, tentative PO contrast study early next week if not yet passing flatus
Subjective Data
-
Date of Service: September 18, 2024
Patient seen and examined at bedside with Dr. Cloud. Pain slowly improving, but still present predominantly on the right. She denies n/v. She has not yet passed flatus.
Objective Data
-
Intake and Output
09/17/24 09/18/24 09/19/24
06:59 06:59 06:59
Intake Total 3767.1 / 3857.7 2932.1 / 3014.8 165.4 / 165.4
Output Total 2250 / 2250 194 / 194
Balance 1517.1 / 1607.7 987.1 / 1069.8 165.4 / 165.4
Intake:
IV fluids (Total) 3077.1 / 3167.7 1994.1 / 2076.8 165.4 / 165.4
AMIO GTT 400.8 / 417.5 400.8 / 417.5 33.4 / 33.4
Insulin 38.6 / 39.2 17.2 / 17.2
Levophed 315.7 / 327.0 45.1 / 45.1
Lr 1,000 ml @ 100 mls/hr IV . 900 / 900
Q10H [facility] Rx#:[id number]
TPN 1032 / 1075 1032 / 1075 86 / 86
heparin 390 / 409 500 / 523 46 / 46
brandon 0 / 0
IV piggybacks 600 / 600 847 / 847
Amount instilled into GI Tube ( 90 / 90 90 / 90
Total)
[place] Sump 90 / 90 90 / 90
Output:
Gastrointestinal tube output ( 600 / 600 1000 / 1000
Total)
[place] Sump 600 / 600 1000 / 1000
Urine, Squires 1650 / 1650 945 / 945
Other:
Number of approximated MODERATE 1
amounts of urine
How many times incontinent 1
SATURATED amount urine
Vital Signs
Temp Pulse Resp BP Pulse Ox
97.3 F 111 16 132/66 94
09/18/24 07:55 09/18/24 07:00 09/18/24 07:00 09/18/24 07:00 09/18/24 07:00
Lab Results
09/18/24 02:55
09/18/24 02:50
Calcium 8.0 mg/dl (8.4-10.2) L 09/18/24 02:50
Phosphorus 2.8 mg/dl (2.5-4.5) 09/17/24 11:08
Magnesium 1.5 mg/dl (1.6-2.3) L 09/18/24 02:50
Total Bilirubin 0.6 mg/dl (0.2-1.3) 09/14/24 20:42
AST 32 U/L (14-36) 09/15/24 04:21
ALT 21 U/L (0-35) 09/15/24 04:21
Alkaline Phosphatase 63 U/L (38-126) 09/14/24 20:42
Total Protein 4.7 g/dl (6.3-8.2) L 09/14/24 20:42
Albumin 2.5 g/dl (3.5-5.0) L 09/14/24 20:42
Physical Exam
-
NAD but acutely ill-appearing
ABD: Mildly distended, tenderness to palpation with voluntary guarding to right side, no rebound.
Lap surgical sites and midline incision with intact tila
NGT with bilious outputs
[2024-09-18 09:27] LABS: Phosphorus 2.6 mg/dl (2.5-4.5)
[2024-09-18] MEDS: ZOFRAN 4 MG IV ×2 (09:45→20:58)
[2024-09-18 10:14] LABS: APTT 69.7 Sec (23.4-35.0)
[2024-09-18] MEDS: TYLENOL/FEVERALL 650 MG RECTAL (11:10)
[2024-09-18 12:30] LABS: Glucose - Point of Care 393 mg/dl (70-99)
[2024-09-18] MEDS: NOVOLOG FLEXPEN 7 UNITS SC (12:41)
[2024-09-18] MEDS: NOVOLOG FLEXPEN-MODERATE RESISTANCE 9 UNITS SC ×3 (12:41→23:40)
--- NOTE | 2024-09-18 15:54 | PTCARENOTE ---
Pt OOB in chair. Ambulated in the hallway 100ft with 3RNs for assist with IV poles and w/c to follow.
Pt AAOx3.
Afib on monitor 100-120s. HR up to 140 with ambulation. Remains on Amiodarone and Heparin gtt.
SpO2 93-96% on room air.
NGT to low intermittent suction. Green output. Zofran given x1 for nausea. Pt denies flatus. Walked pt to bathroom per family request to attempt to pass gas. Pt only voided.
Urine output 1800ml via purewick plus one episode incontinence and once voided on toilet.
Abdominal incisions C/D/I.
Remains on TPN. Blood sugar elevated. MD notified and Insulin adjusted. Discussed with Pharmacy and MD about possibly adjusting TPN.
--- NOTE | 2024-09-18 16:05 | W.PN.CARDCBS ---
Today's Communication / Plan
-
Supportive postoperative care awaiting return of bowel function
Impression / Plan
-
Family Physician: Natasha Bojorquez
Cardiology: None prior to admission
Impression:
Presented 09/11/2024 with abdominal pain, fever, leukocytosis
Acute SBO likely from prior adhesions status post diagnostic laparoscopy converted to ex lap with lysis of adhesions 09/13/2024
Leukopenia
TYRON, creatinine 1.2
Metabolic acidosis, mild
Hyperglycemia
Hypocalcemia
Atrial fibrillation with rapid ventricular response, new diagnosis
Abnormal troponin
Type 2 diabetes, insulin dependent
Hypertension
Hyperlipidemia
Dysphagia from Schatzki's ring status post esophageal dilation
Colon polyps
Hysterectomy
Echo 09/15/2024: Small left ventricle, mild LVH, mid cavity gradient, EF 65-70%, rhythm is A-fib, normal RV, trace MR, aortic sclerosis/mild stenosis peak gradient 17 and 9, valve area 1.8 cm2. Pulmonary artery pressure 38. Small pericardial
effusion
Plan:
She continues to improve postop day 5 status post exploratory laparotomy with lysis of adhesions for small bowel obstruction and internal hernia with small bowel volvulus.
She remains in sinus rhythm on IV amiodarone. No recurrences of atrial fibrillation.Continue IV medications and await bowel function return to transition to oral therapy
Once recovers can discuss addition of anticoagulation for history of PAF
Continue furosemide to 40 mg IV twice daily. She will likely need potassium supplementation.
Troponin was detectable but non-ACS related myocardial injury that at present does not require further intervention
HPI 09/15/2024:
Patient is an 84-year-old female with past medical history significant for insulin-dependent diabetes, hypertension, hyperlipidemia who presents to the emergent department 09/11/2024 with 2 days of abdominal pain and was found to have low-grade
fever and leukocytosis. CT of the abdomen pelvis showed acute small bowel obstruction in the proximal ileum at the pelvic junction. Underwent diag lap with conversion to ex lap and PANCHITO 09/13/24. In the evening of 09/14/2024 patient developed
atrial fibrillation with rapid ventricular response. Patient was provided IV Lopressor with improvement of heart rates and started on IV Cardizem and heparin drip. Patient hypotensive requiring IV pressors with Levophed.
Patient's son at bedside. He helps provide history. Patient has no prior cardiac history and has never seen a renewals manager. Patient notes some mild intermittent palpitations but denies chest pain or shortness of breath
Progress Note - Benefits Assistant
Subjective
Date of Service: September 18, 2024
Seen and examined with family at bedside. Patient feels fatigued but offers no complaints.
Objective
Labs:
09/18/24 02:55
09/18/24 02:50
Labs
Hgb 9.0 g/dL (12.0-16.0) L 09/18/24 02:55
Hct 26.4 % (37.0-47.0) L 09/18/24 02:55
Plt Count 122 10^3/uL (130-400) L 09/18/24 02:55
PT 14.6 Sec (11.4-14.6) 09/13/24 21:03
INR 1.10 09/13/24 21:03
APTT 69.7 Sec (23.4-35.0) H 09/18/24 09:54
Sodium 136 mmol/L (135-145) 09/18/24 02:50
Potassium 3.7 mmol/L (3.5-5.1) 09/18/24 02:50
BUN 47 mg/dl (7-17) H 09/18/24 02:50
Creatinine 0.9 mg/dL (0.6-1.0) 09/18/24 02:50
Glucose 354 mg/dl (70-99) H 09/18/24 02:50
Vital Signs and I&O:
Vital Signs
Temp Pulse Resp BP Pulse Ox
97.6 F 137 22 108/59 94
09/18/24 11:55 09/18/24 14:50 09/18/24 14:50 09/18/24 14:50 09/18/24 11:00
Vital Signs
Temp Pulse Resp BP Pulse Ox
97.6 F 137 22 108/59 94
09/18/24 11:55 09/18/24 14:50 09/18/24 14:50 09/18/24 14:50 09/18/24 11:00
Intake & Output
09/16/24 09/17/24 09/18/24 09/19/24
06:59 06:59 06:59 06:59
Intake Total 4284.6 / 4477.1 3767.1 / 3857.7 2932.1 / 3014.8 496.2 / 496.2
Output Total 1805 / 1805 2250 / 2250 1945 / 1945 1300 / 1300
Balance 2479.6 / 2672.1 1517.1 / 1607.7 987.1 / 1069.8 -803.8 / -803.8
Physical Exam
Physical Exam
General: Frail 84-year-old female with NG tube
Heart: Regular, positive S1/S2,No murmur
Lungs: Clear to auscultation anteriorly but decreased
Abd: Distended with mild tenderness. Jordin present.
Ext: No edema
Neuro: nonfocal
[2024-09-18 16:56] LABS: APTT 78.1 Sec (23.4-35.0)
--- NOTE | 2024-09-18 17:47 | PTCARENOTE ---
Pt had small brown BM in bathroom then ambulated in hallway another 100ft.
Family at bedside.
--- NOTE | 2024-09-18 18:05 | PTCARENOTE ---
Noted to be in NSR.
[2024-09-18] MEDS: NOVOLOG FLEXPEN 12 UNITS SC ×2 (18:21→23:39)
[2024-09-18 18:32] LABS: Glucose - Point of Care 372 mg/dl (70-99)
[2024-09-18] MEDS: Parenteral Nutrition, Central 1040 IV (19:56)
[2024-09-18] MEDS: CORDARONE 518 MG IV (20:59)
--- NOTE | 2024-09-18 21:00 | PTCARENOTE ---
received report 1899 dual RN med rec, pt AAOx3, able to make needs known, SAMINA, denies pain, NSR on the monitor, + pulses, lungs diminished with crackles @ the bases, SpO2 95% RA, NPO with chips, NGT L 60cm to low intermittent suction, green output,
belly soft tender, BSx4 hypoactive, PW collecting yellow output, 3x lap sites, midline abd incision, all sites approximated and stapled, Amio, TPN, and Hep gtts per worklist, R DL PICC, 22G LAC, LFA and L hand, daughter's @ bedside and updated on
plane of care, daughter staying the night, call ansari within reach, otherwise refer to documentation.
[2024-09-18 23:50] LABS: Glucose - Point of Care 352 mg/dl (70-99)
[2024-09-19] VITALS (19 sets, daily range): BP systolic 127–165; BP diastolic 57–79; PULSE 84; BMI 29.9
[2024-09-19 00:25] LABS: APTT 110.9 Sec (23.4-35.0)
--- NOTE | 2024-09-19 00:30 | PTCARENOTE ---
systems reviewed, pt resting comfortably, daughter sitting @ bedside, gtts per worklist, labs sent, new Hep bag hung IV tubing changed, otherwise refer to documentation
[2024-09-19] MEDS: HEPARIN 25000 UNITS/250 ML IV ×3 (00:39→22:31)
[2024-09-19] MEDS: OFIRMEV 100 IV (02:25)
[2024-09-19] MEDS: ZOSYN 50 IV (05:20)
[2024-09-19] MEDS: NOVOLOG FLEXPEN-MODERATE RESISTANCE 5 UNITS SC ×3 (06:33→23:41)
[2024-09-19] MEDS: NOVOLOG FLEXPEN 12 UNITS SC ×4 (06:33→23:41)
[2024-09-19 06:35] LABS: Glucose - Point of Care 280 mg/dl (70-99)
[2024-09-19 06:54] LABS: Hematocrit 27.1 % (37.0-47.0); Hemoglobin 9.1 g/dL (12.0-16.0); Mean Corp Hgb Conc. 33.6 g/dL (33.0-37.0); Mean Corpuscular Hgb 29.1 pg (27.0-31.0); Mean Corpuscular Volume 86.6 fL (81.0-99.0); Mean Platelet Volume 11.1 fL (7.4-10.4); Platelet Count 164 10^3/uL (130-400); Red Blood Cell Count 3.13 10^6/uL (4.20-5.40); Red Cell Dist. Width 14.4 % (11.5-14.5); White Blood Cell Count 8.9 10^3/uL (4.8-10.8)
[2024-09-19 07:14] LABS: ALT (SGPT) 15 U/L (0-35); AST (SGOT) 20 U/L (14-36); Albumin 2.2 g/dl (3.5-5.0); Alkaline Phosphatase 89 U/L (38-126); Blood Urea Nitrogen 43 mg/dl (7-17); Calcium 8.2 mg/dl (8.4-10.2); Carbon Dioxide 31 mmol/L (22-30); Chloride 101 mmol/L (98-107); Estimated Creatinine Clearance 41 ml/min; Glucose 257 mg/dl (70-99); Magnesium 1.5 mg/dl (1.6-2.3); Phosphorus 3.1 mg/dl (2.5-4.5); Potassium 3.3 mmol/L (3.5-5.1); Sodium 142 mmol/L (135-145); Total Bilirubin 0.6 mg/dl (0.2-1.3); Total Protein 4.4 g/dl (6.3-8.2); eGFR > 60.00
--- NOTE | 2024-09-19 08:00 | PTCARENOTE ---
Received patient from shift supervisor rn. Assessment as charted. Patient is AAOx3, sleepy but arousable, son Mauricio present at bedside. Patient is on room air, is sinus rhythm on monitor. AMIO and TPN gtt through right double lumen PICC. left AC with
heparin gtt at 2300. PTT at 1200. Patient is NPO, [place] sump to LIWS, using purewick has linda urine. Had two bowel movements overnight. Will review orders, plan to get OOB and possibly downgrade.
[2024-09-19] MEDS: NSS (PRESERVATIVE FREE) 10 ML IV (08:08)
[2024-09-19] MEDS: PROTONIX IV 40 MG IV (08:09)
[2024-09-19] MEDS: LANTUS 0.35 UNITS SC (08:09)
[2024-09-19] MEDS: LASIX 40 MG IV (08:09)
[2024-09-19] MEDS: DILAUDID 0.25 MG IV ×3 (08:28→23:47)
--- NOTE | 2024-09-19 08:55 | W.PN.HOSP.TC ---
Addendum entered and electronically signed by Marques Rollins MD 09/20/24 15:29:
Physical Exam
NAD, resting comfortably in bed
Scleral anicteric
Moist mucous membranes
No JVD
CTA bilateral
Normal S1-S2 no murmurs
Soft nontender nondistended bowel sounds active
-Incision/staple line appears clean dry and intact, longer vertical incision median abdominal pelvic area, small horizontal incision to the right
No peripheral pitting edema
Moves extremities spontaneously
AAOx3
Assessment and Plan
New onset atrial relation with RVR
-Amiodarone drip discontinued due to QTc prolongation
Continue beta-gil and heparin drip, transition to oral anticoagulants when able to tolerate p.o. well.
Small bowel obstruction s/p ligation of adhesions with surgery
-Having BMs well
On TPN
-Continue analgesic
Leukocytosis, unclear as to etiology
-If febrile check blood cultures
-If abdominal pain and fever will check blood cultures and CT abdomen pelvis
-Encourage incentive spirometer use
Original Note:
Today's Communication/Plan
-
Last day for Zosyn 09/21
Reduce dextrose in TPN
Increase K 7 Mg in TPN
On Amiodarone and heparin gtt. Now in SR. Can start on IV BB
Increase Lantus and Q6 short acting insulin to control hyperglycemia
GI prophylaxis
PT/OT
c/w IV Lasix
F/w surgery recommendations, had good bowel sounds and had BMs.
Assessment / Plan
Assessment / Plan
Physical exam
General: NAD, wearing NC O2, NG tube
HEENT: Dry mucous membrane, no deformity
Heart: Regular, positive murmur
Lungs: Limited with no wheezes
Abdomen: Clean surgery site, no bleeding. better BS
Musculoskeletal: No joint swelling, no edema
Skin: no rashes
Neuro, awake, following commands
Psych, no agitation
Assessment and plan
# New onset Atrial fibrillation with rapid ventricular response
better controlled. Now in SR this morning, can start low dose IV BB
Echo c/w hyperdynamic LV, was on Levophed gtt at the time. Overall no significant abnormality on the echo. Heart murmur c/w MR.
Post IV Cardizem gtt, now on IV Amiodarone gtt, IV Heparin gtt while NPO.
[id number] around 5 for age, sex, HTN and diabetes.
# SBO due to internal hernia with a small bowel volvulus status post diagnostic laparoscopy that was converted to exploratory laparotomy with lysis of adhesions by Dr. Fagan on September 13.
Abdominal discomfort on right side
Better bowel sounds
Postoperative ileus. Await bowel function. Surgery is following, appreciate help
-on NG, suction, not less output with passing BMs.
Had BM over night
- Started on TPN on 09/15
Pain control with Tylenol suppository and IV PRN.
-NPO
#Drop in HGB, anemia due to dilutional and acute blood loss anemia. No signs of active bleeding. Give blood transfusion if HGB less than 8.
# Hypomagnesemia
replace
# lactic acidosis, c/w hypotension
Blood culture is clean
# Positive troponin
likely c/w Non ischemic injury of myocardium
# Volume overload due to fluid retention, acute diastolic heart failure due to fluid shift and fluid given in bert-operative period. Now on Lasix
Replace K in TPN
# Postoperative hypovolemic shock
s/p IVF, off Levophed gtt
# Leukopenia, reactive to stress. Now resolved.
Started on Empiric IV Zosyn by ICU doctor on 09/15, we can do empiric 7 days of IV Abx.
Elevated procalcitonin not specific post surgery and trauma, not necessarily reflective of active infection. Will c/w Zosyn. Negative blood culture. Plan to do 7 days course, Last day 09/21 .
Possible neutropenia
Afebrile
# Acute kidney injury secondary to hypovolemia. Improving.
s/p, now on TPN. Monitor for retention
#Hypomagnesemia, replaced
#Post operative mild acute blood loss anemia with dilutional drop
Monitor H&H while on heparin gtt
# IDDM with hyperglycemia due to dextrose infusion in IV drips and TPN
Continue with Q6 H insulin , increase the dose
Increase Lantus dose
Reduce dextrose in TPN
c/w ISS
- off insulin gtt
-Holding oral agents.
# Hypokalemia, replace
# hyponatremia
Mild
#Primary HTN
Currently in shock and hypotensive. Off oral medications.
# Hld
-Hold until able to tolerate po
# History of Dysphagia from Schatzki's ring status post esophageal dilation
Code Status -per patient wishes, changed to full code
Total time spent to see the patient, examine the patient on the floor, review data and lab results, discuss treatment plan with patient, family, consultants, nursing staff around 59 minutes
Anticipated Discharge: > 48 hours
Subjective/Interval History
-
Date of Service: September 19, 2024
No chest pain
No abd pain
Had BM over night
No sob
Objective Data
-
Labs:
Laboratory Results
09/18/24 09/19/24 09/19/24
23:53 04:36 12:00
WBC 8.9
Hgb 9.1 L
Hct 27.1 L
Plt Count 164 D
APTT 110.9 H 115.0 H Pending
Sodium 142
Potassium 3.3 L
Chloride 101
Carbon Dioxide 31 H
BUN 43 H
Creatinine 0.9
Glucose 257 H
Calcium 8.2 L
Total Bilirubin 0.6
AST 20
ALT 15
Alkaline Phosphatase 89
Vital Signs:
Vital Signs
Temp Pulse Resp BP Pulse Ox
97.7 F 68 15 133/59 95
09/19/24 07:00 09/19/24 06:02 09/19/24 06:02 09/19/24 06:02 09/18/24 20:00
I&O
09/18/24 09/19/24 09/20/24
06:59 06:59 06:59
Intake Total 2932.1 / 3014.8 2102.8 / 2102.8 82.7 / 82.7
Output Total 1944 / 1944 2900 / 2900
Balance 987.1 / 1069.8 -797.2 / -797.2 82.7 / 82.7
--- NOTE | 2024-09-19 08:57 | PTCARENOTE ---
Patient had large bowel movement, aware, purewick removed. surgery in to see patient, NG tube removed.
--- NOTE | 2024-09-19 09:24 | W.PN.GS2 ---
Today's Communication / Plan
-
`
Assessment / Plan
-
Assessment: 84F who is POD#6 s/p Ddx lap --> ex lap with extensive PANCHITO for internal hernia/SBO (09/13/2024) -
History of IDDM, hypertension, hyperlipidemia; admitted with SBO which failed to improve with nonoperative management
CT abd/pelvis on 09/16 negative for any evidence of postoperative bowel compromise or threat (enterotomy, ischemia or organizing fluid collection/abscess). Typical postoperative appearance of ileus/recovering bowel from lysis of adhesions.
AFVSS
Turning the corner with signs of returning GI function
Plan: From surgical standpoint stable for transfer to [facility]
NG tube removed but slow dietary resumption -start on sips and chips
TPN renewed
Zosyn stopped today: Postop day 6 -no enterotomies, CT imaging the other day normal, afebrile and normal white blood cell count
Protonix for GI prophylaxis
Heparin/Amio drips with postop A-fib episode
Subjective Data
-
Date of Service: September 19, 2024
Patient seen and examined. Son at bedside. Nursing at bedside.
Patient has had 2-3 bowel movements over the last 12 hours.
No nausea, right-sided abdominal pain improving each day.
Feeling better.
Objective Data
-
Intake and Output
09/18/24 09/19/24 09/20/24
06:59 06:59 06:59
Intake Total 2932.1 / 3014.8 210.8 / 2101.8 82.7 / 82.7
Output Total 1944 / 1944 2900 / 2900
Balance 987.1 / 1069.8 -797.2 / -797.2 82.7 / 82.7
Intake:
IV fluids (Total) 1994.2076.8 2002.8 2001.8 82.7 / 82.7
AMIO GTT 400.8 / 417.5 400.8 / 400.8 16.7 / 16.7
Insulin 17.2 / 17.2
Levophed 45.1 / 45.1
TPN 1032 / 1075 1032 / 1032 43 / 43
heparin 500 / 523 570 / 570
IV piggybacks 847 / 847 100 / 100
Amount instilled into GI Tube ( /
Total)
[place] Sump /
Output:
Gastrointestinal tube output ( 1000 / 1000 300 / 300
Total)
[place] Sump 1000 / 1000 300 / 300
Urine, Squires 945 / 945
Urine, Voided 2600 / 2600
Other:
Number of approximated MODERATE 1
amounts of urine
How many times incontinent 1 1
MODERATE amount urine
How many times incontinent 1 1
SATURATED amount urine
Vital Signs
Temp Pulse Resp BP Pulse Ox
97.7 F 76 20 136/62 96
09/19/24 07:00 09/19/24 09:00 09/19/24 09:00 09/19/24 09:00 09/19/24 08:00
Lab Results
09/19/24 04:36
09/19/24 04:36
Calcium 8.2 mg/dl (8.4-10.2) L 09/19/24 04:36
Phosphorus 3.1 mg/dl (2.5-4.5) 09/19/24 04:36
Magnesium 1.5 mg/dl (1.6-2.3) L 09/19/24 04:36
Total Bilirubin 0.6 mg/dl (0.2-1.3) 09/19/24 04:36
AST 20 U/L (14-36) 09/19/24 04:36
ALT 15 U/L (0-35) 09/19/24 04:36
Alkaline Phosphatase 89 U/L (38-126) 09/19/24 04:36
Total Protein 4.4 g/dl (6.3-8.2) L 09/19/24 04:36
Albumin 2.2 g/dl (3.5-5.0) L 09/19/24 04:36
Physical Exam
-
NAD AAOx3
ABD: Softer, less distended but still with some tympany. Mild tenderness on palpation predominantly at incision and right side but no further significant rebound or guarding.
Midline incision with tila no erythema or drainage
--- NOTE | 2024-09-19 11:21 | PTCARENOTE ---
Patient transferred to 2114. Tele monitor on, handoff with ZULEMA Dumont
--- NOTE | 2024-09-19 11:43 | PTCARENOTE ---
pt received to room 2114 from ICU at 1110. telemetry reading SR/ST 90's. Right PICC line patent w/TPN infusing @43 ml/hr and AMIO infusing at 16.7ml/hr. Left Wrist INT patent w/heparin infusing at 2300 units/hr. pt oriented to room, call ansari
and plan of care. care ongoing.
[2024-09-19 12:20] LABS: APTT 107.4 Sec (23.4-35.0)
--- NOTE | 2024-09-19 12:30 | PTCARENOTE ---
EKG completed as ordered. Dr Charles at bedside. Amiodarone infusion stopped at 1220 as ordered.
[2024-09-19] MEDS: LOPRESSOR 2.5 MG IV ×2 (12:47→19:48)
[2024-09-19] MEDS: FLUSH (NSS) 1 FLUSH IV (12:48)
[2024-09-19] MEDS: MAGNESIUM SULFATE 50 IV (12:48)
[2024-09-19 12:59] LABS: Glucose - Point of Care 313 mg/dl (70-99)
[2024-09-19] MEDS: NOVOLOG FLEXPEN-MODERATE RESISTANCE 7 UNITS SC (13:00)
[2024-09-19] MEDS: KCL 160 MEQ IV (13:20)
--- NOTE | 2024-09-19 14:48 | W.PN.CARDCBS ---
Today's Communication / Plan
-
Stop amiodarone due to prolonged QTc
Continue telemetry monitoring.
Correct electrolyte disturbances and repeat later today to ensure normalization.
Avoid QT prolonging agents.
Impression / Plan
-
Family Physician: Natasha Bojorquez
Cardiology: None prior to admission
Impression:
Presented 09/11/2024 with abdominal pain, fever, leukocytosis
Acute SBO likely from prior adhesions status post diagnostic laparoscopy converted to ex lap with lysis of adhesions 09/13/2024
Leukopenia
TYRON, creatinine 1.2
Metabolic acidosis, mild
Hyperglycemia
Hypocalcemia
Atrial fibrillation with rapid ventricular response, new diagnosis
Abnormal troponin
Type 2 diabetes, insulin dependent
Hypertension
Hyperlipidemia
Dysphagia from Schatzki's ring status post esophageal dilation
Colon polyps
Hysterectomy
Echo 09/15/2024: Small left ventricle, mild LVH, mid cavity gradient, EF 65-70%, rhythm is A-fib, normal RV, trace MR, aortic sclerosis/mild stenosis peak gradient 17 and 9, valve area 1.8 cm2. Pulmonary artery pressure 38. Small pericardial
effusion
Plan:
She continues to improve postop day 6 status post exploratory laparotomy with lysis of adhesions for small bowel obstruction and internal hernia with small bowel volvulus 09/13/24.
-Transferred to telemetry this morning
-NG tube removed by general surgery
-TPN renewed but started on sips and chips
History of atrial fibrillation currently in sinus rhythm on IV amiodarone
-Twelve-lead EKG done at bedside and reviewed with normal sinus rhythm and nonspecific T wave abnormality. QTc is markedly prolonged, 589ms
-Will stop IV amiodarone
-Start IV Lopressor 2.5 mg Q6 with hold parameters with eventual transition to oral beta-gil. Patient had been on atenolol 50 mg daily at time of admission
-TSH within normal
-Continue IV heparin awaiting return of bowel function with plan to eventually transition to oral anticoagulation
Prolonged QTc
-Admission EKG sinus rhythm with QTc 445 ms
-Replete potassium and magnesium with plan for repeat basic metabolic profile later this afternoon. Goal magnesium greater than 2, goal potassium greater than 4
-Stopped amiodarone. Stopped as needed Zofran
-Continue to monitor on telemetry and repeat EKG in the morning.
-Avoid QT prolonging agents
Volume overload following acute small bowel obstruction requiring surgery/Postoperative shock s/p Volume resuscitation Briefly requiring Levophed/n.p.o. status
-proBNP initially 2320 on September 15, 2024 and wing to [id number]
-2D echocardiogram with hyperdynamic LV systolic function with mid cavitary gradient and EF 65-70% in atrial fibrillation. Mild aortic stenosis. Trace mitral regurgitation; mild tricuspid regurgitation. Trivial pericardial effusion
-Volume status appears better and will reduce Lasix to 40 mg once daily.
-She was not on loop diuretics prior to surgery but had been on hydrochlorothiazide
-Hopefully, will not need long-term Lasix.
-Replete potassium, greater than 4 and magnesium greater than 2
Abnormal cardiac troponin, 0.059 on 09/13/2024 and relatively flat
-Likely represents nonischemic myocardial injury
-Consider eventual outpatient stress test once she has recovered
Mild aortic stenosis on echocardiogram 09/15/2024�outpatient surveillance monitoring
Discussed with patient/family at bedside, nursing and hospitalist
HPI 09/15/2024:
Patient is an 84-year-old female with past medical history significant for insulin-dependent diabetes, hypertension, hyperlipidemia who presents to the emergent department 09/11/2024 with 2 days of abdominal pain and was found to have low-grade
fever and leukocytosis. CT of the abdomen pelvis showed acute small bowel obstruction in the proximal ileum at the pelvic junction. Underwent diag lap with conversion to ex lap and PANCHITO 09/13/24. In the evening of 09/14/2024 patient developed
atrial fibrillation with rapid ventricular response. Patient was provided IV Lopressor with improvement of heart rates and started on IV Cardizem and heparin drip. Patient hypotensive requiring IV pressors with Levophed.
Patient's son at bedside. He helps provide history. Patient has no prior cardiac history and has never seen a quiller operator. Patient notes some mild intermittent palpitations but denies chest pain or shortness of breath
Progress Note - Genetics Teacher
Subjective
Date of Service: September 19, 2024
Seen and examined after transfer to . with family at bedside. Out of bed to a chair and feeling better. Denies chest pain or pressure, lightheadedness or palpitations. Positive flatus.
Objective
Labs:
09/19/24 04:36
Labs
Hgb 9.1 g/dL (12.0-16.0) L 09/19/24 04:36
Hct 27.1 % (37.0-47.0) L 09/19/24 04:36
Plt Count 164 10^3/uL (130-400) D 09/19/24 04:36
PT 14.6 Sec (11.4-14.6) 09/13/24 21:03
INR 1.10 09/13/24 21:03
APTT 107.4 Sec (23.4-35.0) H 09/19/24 12:02
Sodium 142 mmol/L (135-145) 09/19/24 04:36
Potassium 3.3 mmol/L (3.5-5.1) L 09/19/24 04:36
BUN 43 mg/dl (7-17) H 09/19/24 04:36
Creatinine 0.9 mg/dL (0.6-1.0) 09/19/24 04:36
Glucose 257 mg/dl (70-99) H 09/19/24 04:36
Vital Signs and I&O:
Vital Signs
Temp Pulse Resp BP Pulse Ox
97.7 F 92 18 134/73 93
09/19/24 12:25 09/19/24 12:47 09/19/24 12:25 09/19/24 12:47 09/19/24 12:25
Vital Signs
Temp Pulse Resp BP Pulse Ox
97.7 F 92 18 134/73 93
09/19/24 12:25 09/19/24 12:47 09/19/24 12:25 09/19/24 12:47 09/19/24 12:25
Intake & Output
09/17/24 09/18/24 09/19/24 09/20/24
06:59 06:59 06:59 06:59
Intake Total 3767.1 / 3857.7 2932.1 / 3014.8 2102.8 / 2102.8 342.7 / 342.7
Output Total 2250 / 2250 1945 / 1945 2900 / 2900 1000 / 1000
Balance 1517.1 / 1607.7 987.1 / 1069.8 -797.2 / -797.2 -657.3 / -657.3
Physical Exam
Physical Exam
General: NAD on room air
Heart: Regular, positive S1/S2, 2/6 SM
Lungs: Clear to auscultation anteriorly but decreased
Abd: Distended with mild tenderness. Positive bowel sounds. [place] present.
Ext: No edema
Neuro: nonfocal
[2024-09-19] MEDS: TYLENOL/FEVERALL 650 MG RECTAL (16:46)
[2024-09-19 18:06] LABS: APTT 137.9 Sec (23.4-35.0)
[2024-09-19 18:11] LABS: Glucose - Point of Care 255 mg/dl (70-99)
[2024-09-19 18:14] LABS: Blood Urea Nitrogen 41 mg/dl (7-17); Calcium 8.8 mg/dl (8.4-10.2); Carbon Dioxide 35 mmol/L (22-30); Chloride 99 mmol/L (98-107); Estimated Creatinine Clearance 41 ml/min; Glucose 303 mg/dl (70-99); Magnesium 2.1 mg/dl (1.6-2.3); Potassium 3.4 mmol/L (3.5-5.1); Sodium 140 mmol/L (135-145); eGFR > 60.00
[2024-09-19] MEDS: Parenteral Nutrition, Central 1030 IV (20:41)
[2024-09-19 23:40] LABS: Glucose - Point of Care 261 mg/dl (70-99)
[2024-09-20] MEDS: COMPAZINE 10 MG IV (00:09)
[2024-09-20] MEDS: LOPRESSOR 2.5 MG IV ×4 (01:43→20:24)
[2024-09-20 03:50] VITALS: BP 144/75
[2024-09-20 04:28] LABS: Hematocrit 29.8 % (37.0-47.0); Hemoglobin 10.1 g/dL (12.0-16.0); Mean Corp Hgb Conc. 33.9 g/dL (33.0-37.0); Mean Corpuscular Hgb 29.5 pg (27.0-31.0); Mean Corpuscular Volume 87.1 fL (81.0-99.0); Mean Platelet Volume 10.9 fL (7.4-10.4); Platelet Count 229 10^3/uL (130-400); Red Blood Cell Count 3.42 10^6/uL (4.20-5.40); Red Cell Dist. Width 14.6 % (11.5-14.5); White Blood Cell Count 12.1 10^3/uL (4.8-10.8)
[2024-09-20 05:25] LABS: ALT (SGPT) 16 U/L (0-35); AST (SGOT) 21 U/L (14-36); Albumin 2.5 g/dl (3.5-5.0); Alkaline Phosphatase 121 U/L (38-126); Blood Urea Nitrogen 43 mg/dl (7-17); Calcium 8.6 mg/dl (8.4-10.2); Carbon Dioxide 35 mmol/L (22-30); Chloride 102 mmol/L (98-107); Estimated Creatinine Clearance 46 ml/min; Glucose 202 mg/dl (70-99); Potassium 3.5 mmol/L (3.5-5.1); Sodium 143 mmol/L (135-145); Total Bilirubin 0.5 mg/dl (0.2-1.3); Total Protein 4.9 g/dl (6.3-8.2); eGFR > 60.00
[2024-09-20 05:34] LABS: Triglycerides 438 mg/dl (10-149)
[2024-09-20 05:36] LABS: Glucose - Point of Care 226 mg/dl (70-99)
[2024-09-20] MEDS: NOVOLOG FLEXPEN 12 UNITS SC (05:41)
[2024-09-20] MEDS: NOVOLOG FLEXPEN-MODERATE RESISTANCE 3 UNITS SC ×2 (05:41→23:19)
[2024-09-20 05:57] VITALS: BMI 28.2
--- NOTE | 2024-09-20 07:54 | PN.DE.MGMTRT ---
Insulin Management
- -
09/20/2024: Diabetes Management F/U:
84 year old Female with PMH: IDDM, HTN, HLD and a complex total abdominal hysterectomy for an infected IUD 50 years ago. Pt presented to the hospital with 2 days of abdominal pain on 09/13, found to have SBO 2/2 adhesions. Now POD#3 S/P DIAG-LAP
converted to EXP-LAP With Extensive PANCHITO for Internal Hernia with SB Volvulus and Acute SBO. Per chart review, pt was taking Lantus 26-28 units daily, Glimepiride 4mg BID, Janumet BID PET HANDLER. A1C 7.7%, Cr 0.9, eGFR>60
Pt awake, alert, sitting up in chair, able to discuss diabetes mgt, daughter- Emily Henry at bedside helping pt with breakfast.
Pt was started on a clear liquid diet this morning. Remains on TPN contributing to Hyperglycemia.
Current glucose range 255 to 313, requiring 3 to 7 units of corrective insulin. FBG 202(V) this AM.
Will increase Lantus 42 units and NovoLog to 16 units Q6 hrs. Cont moderate corrective Q6hrs
Will switch back to her oral regimen once diet has fully been advanced.
Plan of care discussed with Pt, Pt's Daughter and Nurse
Diabetes History
- -
Type of Diabetes: 2 requiring insulin
Pre-Admission Diabetes Regimen
09/19/24 09/20/24
17:41 04:14
Creatinine 0.9 0.8
Lab Results
Hemoglobin A1c 7.7 % (4.0-5.6) H 09/17/24 04:10
Insulin Pump Settings
IP Diabetes Regimen
09/19/24 09/19/24 09/19/24
12:58 17:41 18:09
Glucose 303 H
POC Glucose 313 H 255 H
09/19/24 09/20/24 09/20/24
23:39 04:14 05:34
Glucose 202 H
POC Glucose 261 H 226 H
Meal type: Dinner
Meal type: Lunch
Meal type: Breakfast
Patient Education
[2024-09-20 08:04] VITALS: BP 157/74
[2024-09-20] MEDS: LASIX 40 MG IV (08:04)
[2024-09-20] MEDS: PROTONIX IV 40 MG IV (08:04)
[2024-09-20] MEDS: NSS (PRESERVATIVE FREE) 10 ML IV (08:04)
[2024-09-20] MEDS: LANTUS 0.42 UNITS SC (08:12)
--- NOTE | 2024-09-20 09:08 | W.PN.GS2 ---
Addendum entered and electronically signed by MELLO Montoya 09/20/24 10:04:
Triglyceride levels up to 438. Discussed with pharmacy. Will hold lipids today and give only 3x a week. Non-protein calories in TPN adjusted so as not to increase amount of dextrose. Protein calories remain the same. Continue to follow labs.
Original Note:
Today's Communication / Plan
-
clear liquid diet
increase activity
Assessment / Plan
-
Assessment: 84F who is POD#7 s/p Ddx lap --> ex lap with extensive PANCHITO for internal hernia/SBO (09/13/2024) -
History of IDDM, hypertension, hyperlipidemia; admitted with SBO which failed to improve with nonoperative management
CT abd/pelvis on 09/16 negative for any evidence of postoperative bowel compromise or threat (enterotomy, ischemia or organizing fluid collection/abscess). Typical postoperative appearance of ileus/recovering bowel from lysis of adhesions.
AFVSS
Turning the corner with signs of returning GI function
Leukocytosis noted but with increase in h/h as well: suspect secondary to hemoconcentration
NGT out on 09/19/24, tolerating sips of clears with +flatus/bm's but still with distention and some belching
Plan: Clear liquid diet
Analgesics/antiemetics
TPN renewed
Following off ABX, was on zosyn through POD #6
Protonix for GI prophylaxis
Heparin gtt continued given postop A-fib episode
OOB/Ambulate. PT/OT reconsulted to follow now that she is out of ICU
Subjective Data
-
Date of Service: September 20, 2024
Patient seen and examined at bedside with Dr. Fagan. Passing some gas but also having some belching. BM last night was solid mixed with loose liquid. Denies n/v. Pain improving.
Objective Data
-
Intake and Output
09/19/24 09/20/24 09/21/24
06:59 06:59 06:59
Intake Total 2102.8 / 2102.8 1350.7 / 1350.7
Output Total 2900 / 2900 1375 / 1375
Balance -797.2 / -797.2 -24.3 / -24.3
Intake:
Oral fluids 50 / 50
IV fluids (Total) 2002.8 / 2001.8 223.7 / 223.7
AMIO GTT 400.8 / 400.8 16.7 / 16.7
TPN 1032 / 1032 43 / 43
heparin 570 / 570
IV piggybacks 100 / 100 260 / 260
TPN/PPN 817 / 817
Output:
Gastrointestinal tube output ( 300 / 300
Total)
[place] Sump 300 / 300
Urine, Voided 2600 / 2600 1375 / 1375
Other:
Number of approximated MODERATE 1 4
amounts of urine
How many times incontinent 2
SMALL amount urine
How many times incontinent 1 1
MODERATE amount urine
How many times incontinent 1 1
SATURATED amount urine
Number of unmeasured liquid
stools
Rectum 1
Vital Signs
Temp Pulse Resp BP Pulse Ox
97.9 F 82 16 157/74 95
09/20/24 08:04 09/20/24 08:04 09/20/24 08:04 09/20/24 08:04 09/20/24 08:04
Lab Results
09/20/24 04:14
09/20/24 04:14
Calcium 8.6 mg/dl (8.4-10.2) 09/20/24 04:14
Phosphorus 3.1 mg/dl (2.5-4.5) 09/19/24 04:36
Magnesium 2.0 mg/dl (1.6-2.3) 09/20/24 04:14
Total Bilirubin 0.5 mg/dl (0.2-1.3) 09/20/24 04:14
AST 21 U/L (14-36) 09/20/24 04:14
ALT 16 U/L (0-35) 09/20/24 04:14
Alkaline Phosphatase 121 U/L (38-126) 09/20/24 04:14
Total Protein 4.9 g/dl (6.3-8.2) L 09/20/24 04:14
Albumin 2.5 g/dl (3.5-5.0) L 09/20/24 04:14
Physical Exam
-
NAD AAOx3
ABD: Softer, less distended but still with some tympany. Mild tenderness on palpation predominantly at incision and right side but no further significant rebound or guarding.
Midline incision with tila no erythema or drainage
--- NOTE | 2024-09-20 09:36 | W.PN.CARDCBS ---
Today's Communication / Plan
-
Remains on tele. Remains in sinus after spontaneous conversion
Amiodarone stopped and Zofran for increased QTc.
QTc is now improved.
TSH within normal limites
Cont IV Lopressor 2.5 mg Q6 with hold parameters with eventual transition to oral beta-gil. Patient had been on atenolol 50 mg daily at time of admission
Continue IV heparin awaiting return of bowel function with plan to eventually transition to oral anticoagulation
Replete lytes as needed
Was volume overloaded now improved and lasix reduced to 40 mg daily.
-may consider further reducing lasix to 20 mg daily starting Sep 3. BUN rising and wt is down. May not need lasix as outpt.
-proBNP initially 2320 on September 15, 2024 and wing to 3520 September 16, 2024
-2D echocardiogram with hyperdynamic LV systolic function with mid cavitary gradient and EF 65-70% in atrial fibrillation. Mild , mild TR.
-was not on loop diuretics prior to surgery but had been on hydrochlorothiazide
-Replete potassium, greater than 4 and magnesium greater than 2
Cont medical therapy for nonMI troponin, 0.059 on 09/13/2024 and relatively flat
Consider eventual outpatient ischemic eval once she has recovered
Impression / Plan
-
.
Family Physician: Natasha Bojorquez
Cardiology: None prior to admission, initially seen by Dr Barger
Impression:
Presented 09/11/2024 with abdominal pain, fever, leukocytosis
Acute SBO likely from prior adhesions status post diagnostic laparoscopy converted to ex lap with lysis of adhesions 09/13/2024
Leukopenia
TYRON, creatinine 1.2
Metabolic acidosis, mild
Hyperglycemia
Hypocalcemia
Atrial fibrillation with rapid ventricular response, new diagnosis, spontaneously converted to sinus
Abnormal troponin
Type 2 diabetes, insulin dependent
Hypertension
Hyperlipidemia
Dysphagia from Schatzki's ring status post esophageal dilation
Colon polyps
Hysterectomy
Echo 09/15/2024: Small left ventricle, mild LVH, mid cavity gradient, EF 65-70%, rhythm is A-fib, normal RV, trace MR, aortic sclerosis/mild stenosis peak gradient 17 and 9, valve area 1.8 cm2. Pulmonary artery pressure 38. Small pericardial
effusion
Plan:
Continues to improve s/p exploratory laparotomy with lysis of adhesions for small bowel obstruction and internal hernia with small bowel volvulus 09/13/24.
Diet being advanced by surgery.
Remains on tele. Remains in sinus after spontaneous conversion
Amiodarone stopped and Zofran for increased QTc.
QTc is now improved.
TSH within normal limites
Cont IV Lopressor 2.5 mg Q6 with hold parameters with eventual transition to oral beta-gil. Patient had been on atenolol 50 mg daily at time of admission
Continue IV heparin awaiting return of bowel function with plan to eventually transition to oral anticoagulation
Replete lytes as needed
Was volume overloaded now improved and lasix reduced to 40 mg daily.
-may consider further reducing lasix to 20 mg daily starting Dec 3. BUN rising and wt is down. May not need lasix as outpt.
-proBNP initially 2320 on September 15, 2024 and wing to 3520 September 16, 2024
-2D echocardiogram with hyperdynamic LV systolic function with mid cavitary gradient and EF 65-70% in atrial fibrillation. Mild , mild TR.
-was not on loop diuretics prior to surgery but had been on hydrochlorothiazide
-Replete potassium, greater than 4 and magnesium greater than 2
Cont medical therapy for nonMI troponin, 0.059 on 09/13/2024 and relatively flat
Consider eventual outpatient ischemic eval once she has recovered
Discussed with patient/family at bedside.
HPI 09/15/2024:
Patient is an 84-year-old female with past medical history significant for insulin-dependent diabetes, hypertension, hyperlipidemia who presents to the emergent department 09/11/2024 with 2 days of abdominal pain and was found to have low-grade
fever and leukocytosis. CT of the abdomen pelvis showed acute small bowel obstruction in the proximal ileum at the pelvic junction. Underwent diag lap with conversion to ex lap and PANCHITO 09/13/24. In the evening of 09/14/2024 patient developed
atrial fibrillation with rapid ventricular response. Patient was provided IV Lopressor with improvement of heart rates and started on IV Cardizem and heparin drip. Patient hypotensive requiring IV pressors with Levophed.
Patient's son at bedside. He helps provide history. Patient has no prior cardiac history and has never seen a vibration technician. Patient notes some mild intermittent palpitations but denies chest pain or shortness of breath
Progress Note - Product Expert
Subjective
Date of Service: September 20, 2024
Pt seen and examined. No complaints. No chest pain or shortness of breath.
Objective
Labs:
09/20/24 04:14
09/20/24 04:14
Labs
Hgb 10.1 g/dL (12.0-16.0) L 09/20/24 04:14
Hct 29.8 % (37.0-47.0) L 09/20/24 04:14
Plt Count 229 10^3/uL (130-400) D 09/20/24 04:14
PT 14.6 Sec (11.4-14.6) 09/13/24 21:03
INR 1.10 09/13/24 21:03
APTT 145.0 Sec (23.4-35.0) H 09/20/24 01:39
Sodium 143 mmol/L (135-145) 09/20/24 04:14
Potassium 3.5 mmol/L (3.5-5.1) 09/20/24 04:14
BUN 43 mg/dl (7-17) H 09/20/24 04:14
Creatinine 0.8 mg/dL (0.6-1.0) 09/20/24 04:14
Glucose 202 mg/dl (70-99) H 09/20/24 04:14
Vital Signs and I&O:
Vital Signs
Temp Pulse Resp BP Pulse Ox
97.9 F 82 16 157/74 95
09/20/24 08:04 09/20/24 08:04 09/20/24 08:04 09/20/24 08:04 09/20/24 08:04
Vital Signs
Temp Pulse Resp BP Pulse Ox
97.9 F 82 16 157/74 95
09/20/24 08:04 09/20/24 08:04 09/20/24 08:04 09/20/24 08:04 09/20/24 08:04
Intake & Output
09/18/24 09/19/24 09/20/24 09/21/24
06:59 06:59 06:59 06:59
Intake Total 2932.1 / 3014.8 2102.8 / 2102.8 1350.7 / 1350.7
Output Total 1945 / 1945 2900 / 2900 1375 / 1375
Balance 987.1 / 1069.8 -797.2 / -797.2 -24.3 / -24.3
Physical Exam
Physical Exam
General: No acute distress, AAOX3
Neck: Negative JVD
Heart: Regular, Negative S3 positive S1/S2, Negative S4, No murmur
Lungs: CTA b/l, negative wheezes/rales/rhonchi
Abd: Positive BS, NT/ND, neg rebound/rigidity/guarding
Ext: Negative cyanosis/clubbing/edema
Neuro: nonfocal
[2024-09-20 11:25] VITALS: BP 128/64
[2024-09-20] MEDS: DILAUDID 0.5 MG IV ×2 (11:37→16:00)
[2024-09-20 12:20] LABS: APTT 102.1 Sec (23.4-35.0)
--- NOTE | 2024-09-20 12:25 | PTCARENOTE ---
Patient ambulated to bathroom with min assist x1 and walker. Patient was incontinent of large loose brown BM x2. Patient states, 'I feel better.' Patient tolerating clear liquid diet, Dilaudid given for 7/10 abdominal pain with good relief. Patient
tolerated sitting in chair for 3 hours. Family at bedside.
[2024-09-20] MEDS: HEPARIN 25000 UNITS/250 ML IV (12:51)
[2024-09-20 13:04] LABS: Glucose - Point of Care 413 mg/dl (70-99)
--- NOTE | 2024-09-20 13:32 | W.PN.HOSP.TC ---
Addendum entered and electronically signed by Marques Rollins MD 09/21/24 13:29:
iddm c/b hypergglycemia
bg in the 700's after starting cld
-will check bmp, bhb, vbg r/o dka
-ivf
-10u reg insulin along wigth ssi
-lantus increased
-diabetes nurse informed planned to make changes
sbo s/p anitha, pod 8
-on tpn wean as tolerated
-surgery following
-started on cld
-advance as tolerated
parox afib, back in sr
-on hep gtt
-continue bb
-amio dc'ed
Original Note:
Today's Communication/Plan
-
Follow-up with surgery
Observe glucose levels
Plan to advance diet
Monitor heart rate on telemetry
Assessment / Plan
Assessment / Plan
New onset Atrial fibrillation with rapid ventricular response:
- Monitor heart rate, currently 111 today
-[id number] course 5
-EKG today morning shows normal sinus rhythm, nonspecific ST and T wave abnormality
-Amiodarone stopped because of increased QTc, continue Lopressor 2.5 mg IV every 6 hourly, eventually transition to oral beta-gil
-Continue on heparin drip and plan to transition to oral Eliquis when bowel function is normal
-Continue to follow-up with cardiology
SBO due to internal hernia with a small bowel volvulus status post diagnostic laparoscopy :
-Bowel sounds are present on physical examination, no nausea, no vomiting, patient had some bowel movements since yesterday
- Started on TPN on 09/15, Triglyceride levels up to 438, hold lipids today and give only 3x a week. Non-protein calories in TPN adjusted to not increase dextrose. Protein calories same.
-Currently on clear liquids, surgery would like to wait before advancing diet
Hypertriglyceridemia:
- Started on TPN on 09/15, Triglyceride levels up to 438, hold lipids today and give only 3x a week. Non-protein calories in TPN adjusted to not increase dextrose. Protein calories same.
Leukocytosis:
- 12.1 today and trending up
- Patient is afebrile
- most likely reactive, continue to monitor
Postoperative hypovolemic shock
- Current blood pressure is 128/64, HR is 111, and O2 sat is 98
- Continue with IV fluids as needed
- Off levophed
Volume overload due to fluid retention
acute diastolic heart failure due to fluid shift and fluid given in bert-operative period:
- Currently on Lasix 20 mg iv
- Todays weight is 67.5 which is about 4 kgs down from yesterday
- Echo shows a ejection fraction of 65-70%,
- creatinine is 0.8, BUN 43
IDDM:
- Glucose level is 787, ordered 10 units regular insulin, ordered VBG, BHB, BMP, and 0.45 ns at 150 cc/hr, pending
-Continue with Q6 H insulin , increase the dose
-Insulin glargine dose is now 42 units
-Reduce dextrose in TPN
-c/w ISS
Hld
-Hold until able to tolerate po
Code Status - full code
Anticipated Discharge: 24 - 48 hours
Subjective/Interval History
-
Date of Service: September 20, 2024
Patient is a 4-year-old female who presented to the emergency department for nausea vomiting fever, abdominal pain for 2 days after eating chicken soup. Abdominal pain is bilateral associated with 1-2 episodes of nonbloody emesis. No previous
similar clinical presentation. On admission CT scan showed small bowel obstruction with transition point in the low anterior pelvis. On admission x-ray showed numerous gas distended loops of small bowel consistent with small bowel obstruction.
Surgery was consulted and suspected that her small bowel obstruction is due due to adhesions from her prior infection from an infected IUD. Exploratory laparotomy performed with lysis of adhesions. On postop day 1 patient has postoperative
hypovolemic shock which is managed by Levophed and IV fluids, once blood pressure is stabilized Levophed was discontinued. Blood cultures came back clean. Patient went into rapid A-fib with concerns for ST depression, for which she was managed on
amiodarone then changed to IV metoprolol because most recent EKG showed the patient is now in sinus rhythm and prolonged QTc interval. Today's postop day 6. Patient is currently on TPN and cleared for clears and sips by surgery and heparin drip IV.
Started to have more bowel movement since yesterday, but stomach still feels full.
Objective Data
-
Labs:
Laboratory Results
09/20/24 09/20/24 09/20/24
01:39 04:14 11:41
WBC 12.1 H
Hgb 10.1 L
Hct 29.8 L
Plt Count 229 D
APTT 145.0 H 102.1 H
Sodium 143
Potassium 3.5
Chloride 102
Carbon Dioxide 35 H
BUN 43 H
Creatinine 0.8
Glucose 202 H
Calcium 8.6
Total Bilirubin 0.5
AST 21
ALT 16
Alkaline Phosphatase 121
09/20/24 09/20/24
13:08 18:00
WBC
Hgb
Hct
Plt Count
APTT Pending
Sodium
Potassium
Chloride
Carbon Dioxide
BUN
Creatinine
Glucose Pending
Calcium
Total Bilirubin
AST
ALT
Alkaline Phosphatase
Vital Signs:
Vital Signs
Temp Pulse Resp BP Pulse Ox
97.8 F 111 16 128/64 98
09/20/24 11:25 09/20/24 11:25 09/20/24 11:25 09/20/24 11:25 09/20/24 11:25
I&O
09/19/24 09/20/24 09/21/24
06:59 06:59 06:59
Intake Total 2102.8 / 2102.8 1350.7 / 1350.7
Output Total 2900 / 2900 1375 / 1375
Balance -797.2 / -797.2 -24.3 / -24.3
Review of Systems
-
History Source: Patient
Constitutional: Denies Fever or Chills
EENT: Denies Blurry Vision
Respiratory: Denies Cough or Trouble Breathing
Cardiac: Denies Chest Pain, Diaphoresis, Palpitations, Syncope, PND or Orthopnea
Abdomen/GI: Denies Abdominal Pain, Nausea, Vomiting, Diarrhea or Constipated
Genitourinary: Denies Dysuria
Musculoskeletal: Denies Joint Pain
Neuro: Denies Headache, Weakness or Numbness
Physical Exam
-
Respiratory: Decreased Breath Sounds
Cardiac: Regular Rhythm, S1/S2 and Murmur (2 out of 6 systolic ejection murmur at the right upper sternal border)
GI: Soft, Nontender and Normal Bowel Sounds
Musculoskeletal: Negative Edema, Left Upper Extrem or Edema, Right Lower Extrem
Neuro: Awake, Alert, Oriented and AO x 3
Data Reviewed
-
Medical Tests (Nuc Med, Echo etc): Image personally visualized and interpreted and Discussed with Physician
Labs: Labs Reviewed by me and Discussed with Physician
--- NOTE | 2024-09-20 14:01 | CM ---
Chart reviewed. Met with pt and her daughter at bedside
PT recs - SNF, previously recs- [facility]
Discussed with pt and daughter - given SNF list from [employer] to review
Pt stating she prefers to go home with [facility]. Encouraged to review list and CM will follow up with family
Plan - anticipate snf vs home with [facility] when medically stable
[2024-09-20 14:10] LABS: Glucose 787 mg/dl (70-99)
--- NOTE | 2024-09-20 14:41 | GLUCOSE ---
SITUATION:
Patient's accucheck read HI. Stat blood glucose ordered and sent. Glucose result 787. Physician and resident made aware.
BACKGROUND:
ASSESSMENT:
RECOMMENDATION:
[2024-09-20] MEDS: NOVOLOG FLEXPEN-MODERATE RESISTANCE SC (15:12)
[2024-09-20] MEDS: NOVOLIN R 0.1 UNITS SC (15:14)
[2024-09-20] MEDS: 0.45%NACL 500 IV (15:23)
[2024-09-20 15:25] VITALS: BP 141/74
[2024-09-20 16:03] LABS: Venous Blood Gas B.E. 3.2 mmol/L (-4 to +4); Venous Blood Gas O2 Sat % 82.2 %; Venous Blood Gas pCO2 49 mmHg (35-48); Venous Blood Gas pH 7.38 (7.32-7.43); Venous Blood Gas pO2 54 mmHg (30-50)
[2024-09-20] MEDS: NOVOLOG FLEXPEN 16 UNITS SC ×3 (16:05→23:19)
[2024-09-20 16:29] LABS: Glucose - Point of Care 381 mg/dl (70-99)
[2024-09-20 16:47] LABS: Blood Urea Nitrogen 40 mg/dl (7-17); Calcium 8.7 mg/dl (8.4-10.2); Carbon Dioxide 30 mmol/L (22-30); Chloride 96 mmol/L (98-107); Estimated Creatinine Clearance 44 ml/min; Potassium 4.9 mmol/L (3.5-5.1); Sodium 134 mmol/L (135-145); eGFR > 60.00
[2024-09-20 17:01] LABS: Glucose 788 mg/dl (70-99)
[2024-09-20 17:05] LABS: B-Hydroxybutyrate 0.04 mmol/L (0.02-0.27)
--- NOTE | 2024-09-20 18:33 | GLUCOSE ---
1302 POC glucose, meter result HI
Stat Glucose sent at 1310
Glucose resulted at 1409
Resident notified at 1414
Resident notified at 1441
Resident placed order for R insulin 10 units.
RN clarified with resident if OK to administer standing order 16 units Novolog
Resident confirmed give R insulin 10 units
RN clarified again if OK to given standing insulin
Resident confirmed with ict educator-OK to give standing order 16 units Novolog
Repeat finger stick at 1700, 381
[2024-09-20 18:40] LABS: Glucose 298 mg/dl (70-99)
[2024-09-20 18:41] LABS: APTT 61.2 Sec (23.4-35.0)
[2024-09-20] MEDS: NOVOLOG FLEXPEN-MODERATE RESISTANCE 5 UNITS SC (18:52)
[2024-09-20 19:10] LABS: Lactic Acid 2.4 mmol/L (0.7-2.0)
[2024-09-20 19:36] VITALS: BP 123/65
[2024-09-20] MEDS: 0.45%NACL 1000 IV (20:24)
[2024-09-20] MEDS: Parenteral Nutrition, Central 870 IV (21:16)
[2024-09-20] MEDS: DILAUDID 0.25 MG IV (21:20)
[2024-09-20 23:15] LABS: Glucose - Point of Care 239 mg/dl (70-99)
[2024-09-20 23:16] VITALS: BP 131/59
[2024-09-20 23:33] LABS: Lactic Acid 1.2 mmol/L (0.7-2.0)
[2024-09-21] MEDS: LOPRESSOR 2.5 MG IV ×3 (01:45→19:58)
[2024-09-21 01:46] LABS: APTT 136.2 Sec (23.4-35.0)
[2024-09-21 01:47] VITALS: BP 138/64
[2024-09-21] MEDS: HEPARIN 25000 UNITS/250 ML IV ×2 (01:49→17:47)
[2024-09-21] MEDS: DILAUDID 0.25 MG IV ×2 (03:32→21:47)
[2024-09-21] MEDS: SODIUM CHLORIDE 1019.25 MEQ IV (03:32)
[2024-09-21] MEDS: COMPAZINE 10 MG IV ×2 (03:39→22:01)
[2024-09-21 05:52] VITALS: BMI 29.1
[2024-09-21 06:02] LABS: Glucose - Point of Care 238 mg/dl (70-99)
[2024-09-21] MEDS: NOVOLOG FLEXPEN-MODERATE RESISTANCE 3 UNITS SC (06:03)
[2024-09-21] MEDS: NOVOLOG FLEXPEN 16 UNITS SC (06:03)
[2024-09-21 06:35] LABS: Hematocrit 26.1 % (37.0-47.0); Hemoglobin 8.5 g/dL (12.0-16.0); Mean Corp Hgb Conc. 32.6 g/dL (33.0-37.0); Mean Corpuscular Hgb 29.2 pg (27.0-31.0); Mean Corpuscular Volume 89.7 fL (81.0-99.0); Mean Platelet Volume 10.9 fL (7.4-10.4); Platelet Count 245 10^3/uL (130-400); Red Blood Cell Count 2.91 10^6/uL (4.20-5.40); Red Cell Dist. Width 14.4 % (11.5-14.5); White Blood Cell Count 10.6 10^3/uL (4.8-10.8)
[2024-09-21 07:08] LABS: Blood Urea Nitrogen 36 mg/dl (7-17); Carbon Dioxide 30 mmol/L (22-30); Chloride 98 mmol/L (98-107); Estimated Creatinine Clearance 52 ml/min; Glucose 218 mg/dl (70-99); Sodium 136 mmol/L (135-145); eGFR > 60.00
[2024-09-21 08:09] VITALS: BP 137/62
--- NOTE | 2024-09-21 08:59 | W.PN.GS2 ---
Today's Communication / Plan
-
Recheck H&H.
TPN
PT OT
Assessment / Plan
-
Assessment: 84F who is POD#8 s/p lap to open PANCHITO for internal hernia/SBO (09/13/2024) - doing well, expected postoperative course.
CT abd/pelvis on 09/16 negative for any evidence of postoperative bowel compromise or threat (enterotomy, ischemia or organizing fluid collection/abscess). Typical postoperative appearance of ileus/recovering bowel from lysis of adhesions.
Has +ROBF but still distended on exam, so we will continue on a clear liquid diet
Analgesics/antiemetics
TPN renewed will need to control sugars
Protonix for GI prophylaxis
Heparin gtt continued given postop A-fib episode, hemoglobin 8.5 will recheck later today.
OOB/Ambulate. PT/OT reconsulted to follow now that she is out of ICU
Time Spent
Total Time Spent with Patient (in minutes): 25
Subjective Data
-
Date of Service: September 21, 2024
Interval Events:
No acute events overnight. Slept well. Pain Controlled. Denies Nausea/Vomiting, +bowel function. Tolerating diet.
Objective Data
-
Intake and Output
09/20/24 09/21/24 09/22/24
06:59 06:59 06:59
Intake Total 1350.7 / 1350.7 4105 / 4105
Output Total 1375 / 1375
Balance -24.3 / -24.3 4105 / 4105
Intake:
Oral fluids 50 / 50 1660 / 1660
IV fluids (Total) 223.7 / 223.7 1800 / 1800
AMIO GTT 16.7 / 16.7
TPN 43 / 43
heparin 23 /
IV piggybacks 260 / 260 213 / 213
TPN/PPN 817 / 817 432 / 432
Output:
Urine, Voided 1375 / 1375
Other:
Number of approximated MODERATE 4 1
amounts of urine
How many times incontinent 2
SMALL amount urine
How many times incontinent 1
MODERATE amount urine
How many times incontinent 1 1
SATURATED amount urine
Number of unmeasured liquid
stools
Rectum 1
Vital Signs
Temp Pulse Resp BP Pulse Ox
98.9 F 102 18 137/62 96
09/21/24 08:09 09/21/24 08:09 09/21/24 08:09 09/21/24 08:09 09/21/24 08:09
Lab Results
09/21/24 05:40
09/21/24 05:40
Calcium 8.0 mg/dl (8.4-10.2) L 09/21/24 05:40
Phosphorus 3.1 mg/dl (2.5-4.5) 09/19/24 04:36
Magnesium 2.0 mg/dl (1.6-2.3) 09/20/24 04:14
Total Bilirubin 0.5 mg/dl (0.2-1.3) 09/20/24 04:14
AST 21 U/L (14-36) 09/20/24 04:14
ALT 16 U/L (0-35) 09/20/24 04:14
Alkaline Phosphatase 121 U/L (38-126) 09/20/24 04:14
Total Protein 4.9 g/dl (6.3-8.2) L 09/20/24 04:14
Albumin 2.5 g/dl (3.5-5.0) L 09/20/24 04:14
Physical Exam
-
GENERAL/NEURO: Awake, Alert, no distress
CHEST: Unlabored breathing on RA
ABDOMEN: Soft, Non-Tender, still mildly distended, incisions clean dry and intact with tila in place.
[2024-09-21] MEDS: NSS (PRESERVATIVE FREE) 10 ML IV (09:32)
[2024-09-21] MEDS: LANTUS 0.42 UNITS SC (09:32)
[2024-09-21] MEDS: PROTONIX IV 40 MG IV (09:32)
[2024-09-21] MEDS: LASIX 20 MG IV (09:42)
[2024-09-21] MEDS: DILAUDID 0.5 MG IV ×2 (09:42→15:54)
--- NOTE | 2024-09-21 10:00 | PTCARENOTE ---
Patient with increased crackle B/L, weight increased 2.5 kg, LE with trace pitting edema. Physician made aware and fluids are on hold.
--- NOTE | 2024-09-21 10:10 | PN.DE.MGMTRT ---
Insulin Management
- -
09/21/2024: Diabetes Management F/U:
84 year old Female with PMH: IDDM, HTN, HLD and a complex total abdominal hysterectomy for an infected IUD 50 years ago. Pt presented to the hospital with 2 days of abdominal pain on 09/13, found to have SBO 2/2 adhesions. Now POD#3 S/P DIAG-LAP
converted to EXP-LAP With Extensive PANCHITO for Internal Hernia with SB Volvulus and Acute SBO. 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 A1C 7.7%, Cr 0.9, eGFR>60
Pt resting in bed, daughters- Vicenta and Sussy at bedside, involved in discussion about diabetes mgt
Pt remains on TPN with 215 gm of dextrose, plan to reduce to 150gm tonight. Started on a clear liquid diet yesterday.
Glucose elevated, trended up to 787 at lunch yesterday, of note, pt did not receive any insulin at noon, She required a total of 32 units to treat the escalated blood sugar.
Her current glucose range is 238 to 339, requiring 3 units of additional corrective insulin. FBG 218(V) this AM.
Will increase NovoLog to 19 units Q6 hrs. Lantus was increased to 42 units in AM, Pt to receive 1st dose now. Cont moderate corrective Q6hrs
Will switch back to her oral regimen once diet has fully been advanced.
Plan of care discussed with Pt's Daughters and Nurse
Diabetes History
- -
Type of Diabetes: 2 requiring insulin
Pre-Admission Diabetes Regimen
09/20/24 09/21/24
15:45 05:40
Creatinine 0.8 0.7
Lab Results
Hemoglobin A1c 7.7 % (4.0-5.6) H 09/17/24 04:10
Insulin Pump Settings
IP Diabetes Regimen
09/20/24 09/20/24 09/20/24
13:02 13:08 15:45
Glucose 787 H* 788 H*
POC Glucose 413 H
09/20/24 09/20/24 09/20/24
16:28 18:07 23:14
Glucose 298 H
POC Glucose 381 H 239 H
09/21/24 09/21/24
05:40 05:56
Glucose 218 H
POC Glucose 238 H
Meal type: Dinner
Meal type: Breakfast
Amount consumed: 100%
Amount consumed: 70%
Patient Education
--- NOTE | 2024-09-21 10:30 | W.PN.CARDCBS ---
Today's Communication / Plan
-
Remains in sinus after spontaneous conversion
Amiodarone stopped and Zofran for increased QTc and QTc stable.
Until diet more advanced, would cont IV Lopressor 2.5 mg Q6 with hold parameters with eventual transition to oral beta-gil. Patient had been on atenolol 50 mg daily at time of admission
Continue IV heparin awaiting return of bowel function with plan to eventually transition to oral anticoagulation
Replete lytes as needed
Was volume overloaded and improved. She had received some IVF Sep 20.
-Would consider addtional lasix 20 mg IV Sep 21. Received 20 mg IV AM Sep 21.
Impression / Plan
-
.
Family Physician: Natasha Bojorquez
Cardiology: None prior to admission, initially seen by Dr Barger
Impression:
Presented 09/11/2024 with abdominal pain, fever, leukocytosis
Acute SBO likely from prior adhesions status post diagnostic laparoscopy converted to ex lap with lysis of adhesions 09/13/2024
Leukopenia
TYRON, creatinine 1.2
Metabolic acidosis, mild
Hyperglycemia
Hypocalcemia
Atrial fibrillation with rapid ventricular response, new diagnosis, spontaneously converted to sinus
Abnormal troponin
Type 2 diabetes, insulin dependent
Hypertension
Hyperlipidemia
Dysphagia from Schatzki's ring status post esophageal dilation
Colon polyps
Hysterectomy
Echo 09/15/2024: Small left ventricle, mild LVH, mid cavity gradient, EF 65-70%, rhythm is A-fib, normal RV, trace MR, aortic sclerosis/mild stenosis peak gradient 17 and 9, valve area 1.8 cm2. Pulmonary artery pressure 38. Small pericardial
effusion
Plan:
Continues to improve s/p exploratory laparotomy with lysis of adhesions for small bowel obstruction and internal hernia with small bowel volvulus 09/13/24.
Diet being advanced by surgery.
Remains in sinus after spontaneous conversion
Amiodarone stopped and Zofran for increased QTc and QTc stable.
Until diet more advanced, would cont IV Lopressor 2.5 mg Q6 with hold parameters with eventual transition to oral beta-gil. Patient had been on atenolol 50 mg daily at time of admission
Continue IV heparin awaiting return of bowel function with plan to eventually transition to oral anticoagulation
Replete lytes as needed
Was volume overloaded and improved. She had received some IVF Dec 2.
-Would consider addtional lasix 20 mg IV Dec 3. Received 20 mg IV AM Dec 3.
-May not need lasix as outpt.
-proBNP initially 2320 on September 15, 2024 and wing to 3520 September 16, 2024
-2D echocardiogram with hyperdynamic LV systolic function with mid cavitary gradient and EF 65-70% in atrial fibrillation. Mild , mild TR.
-was not on loop diuretics prior to surgery but had been on hydrochlorothiazide
-Replete potassium, greater than 4 and magnesium greater than 2
Cont medical therapy for nonMI troponin, 0.059 on 09/13/2024 and relatively flat
Consider eventual outpatient ischemic eval once she has recovered
Discussed with patient/family at bedside.
Discussed with nursing and primary service.
HPI 09/15/2024:
Patient is an 84-year-old female with past medical history significant for insulin-dependent diabetes, hypertension, hyperlipidemia who presents to the emergent department 09/11/2024 with 2 days of abdominal pain and was found to have low-grade
fever and leukocytosis. CT of the abdomen pelvis showed acute small bowel obstruction in the proximal ileum at the pelvic junction. Underwent diag lap with conversion to ex lap and PANCHITO 09/13/24. In the evening of 09/14/2024 patient developed
atrial fibrillation with rapid ventricular response. Patient was provided IV Lopressor with improvement of heart rates and started on IV Cardizem and heparin drip. Patient hypotensive requiring IV pressors with Levophed.
Patient's son at bedside. He helps provide history. Patient has no prior cardiac history and has never seen a inventory control analyst. Patient notes some mild intermittent palpitations but denies chest pain or shortness of breath
Progress Note - Operations Superintendent
Subjective
Date of Service: September 21, 2024
Pt seen and examined. No complaints. No chest pain or shortness of breath.
Objective
Labs:
09/21/24 05:40
Labs
Hgb 8.5 g/dL (12.0-16.0) L 09/21/24 05:40
Hct 26.1 % (37.0-47.0) L 09/21/24 05:40
Plt Count 245 10^3/uL (130-400) 09/21/24 05:40
PT 14.6 Sec (11.4-14.6) 09/13/24 21:03
INR 1.10 09/13/24 21:03
APTT 136.2 Sec (23.4-35.0) H 09/21/24 01:26
Sodium 136 mmol/L (135-145) 09/21/24 05:40
Potassium 4.0 mmol/L (3.5-5.1) 09/21/24 05:40
BUN 36 mg/dl (7-17) H 09/21/24 05:40
Creatinine 0.7 mg/dL (0.6-1.0) 09/21/24 05:40
Glucose 218 mg/dl (70-99) H 09/21/24 05:40
Vital Signs and I&O:
Vital Signs
Temp Pulse Resp BP Pulse Ox
98.9 F 102 18 137/62 96
09/21/24 08:09 09/21/24 08:09 09/21/24 08:09 09/21/24 08:09 09/21/24 08:09
Vital Signs
Temp Pulse Resp BP Pulse Ox
98.9 F 102 18 137/62 96
09/21/24 08:09 09/21/24 08:09 09/21/24 08:09 09/21/24 08:09 09/21/24 08:09
Intake & Output
09/19/24 09/20/24 09/21/24 09/22/24
06:59 06:59 06:59 06:59
Intake Total 2102.8 / 2102.8 1350.7 / 1350.7 4104 / 410
Output Total 2900 / 2900 1375 / 1375
Balance -797.2 / -797.2 -24.3 / -24.3 4104 / 4104
Physical Exam
Physical Exam
General: No acute distress, AAOX3
Neck: Negative JVD
Heart: Regular, Negative S3 positive S1/S2, Negative S4, No murmur
Lungs: CTA b/l, negative wheezes/rales/rhonchi
Abd: Positive BS, NT/ND, neg rebound/rigidity/guarding
Ext: Negative cyanosis/clubbing/edema
Neuro: nonfocal
[2024-09-21 11:00] VITALS: BP 99/74
[2024-09-21] MEDS: SODIUM CHLORIDE IV ×2 (11:37→15:54)
[2024-09-21 11:44] LABS: Glucose - Point of Care 259 mg/dl (70-99)
[2024-09-21] MEDS: NOVOLOG FLEXPEN-MODERATE RESISTANCE 5 UNITS SC (12:03)
[2024-09-21] MEDS: NOVOLOG FLEXPEN 20 UNITS SC ×2 (12:04→17:55)
[2024-09-21 12:15] LABS: Hematocrit 28.7 % (37.0-47.0); Hemoglobin 9.3 g/dL (12.0-16.0); Mean Corp Hgb Conc. 32.4 g/dL (33.0-37.0); Mean Corpuscular Hgb 28.9 pg (27.0-31.0); Mean Corpuscular Volume 89.1 fL (81.0-99.0); Mean Platelet Volume 10.7 fL (7.4-10.4); Platelet Count 292 10^3/uL (130-400); Red Blood Cell Count 3.22 10^6/uL (4.20-5.40); White Blood Cell Count 10.9 10^3/uL (4.8-10.8)
--- NOTE | 2024-09-21 12:28 | W.PN.HOSP.TC ---
Addendum entered and electronically signed by Marques Rollins MD 09/21/24 13:37:
iddm c/b hypergglycemia
-hyperglycemia improved with interventions provided yesterday
-there was no concern for dka
-gb 140-180
-cld, advance as tolerated to ccdiet per surgeyr
-long and short acting insulin
-accuchecks
sbo s/p anitha, pod 8
-on tpn wean as tolerated
-surgery following
-started on cld
-advance as tolerated
parox afib, back in sr
-on hep gtt
-continue bb
-amio dc'ed
-cardiology following
prolonged qtc
-avoid agents that prolong
volume overload, no hx of heart failure, 2d echo reviewed, without evidence of hf documented
-did recieve ivf on 09/20 for hyperglycemia
-will give additional iv lasix now
-cardiology following
Original Note:
Today's Communication/Plan
-
- follow up cardiology
Assessment / Plan
Assessment / Plan
New onset Atrial fibrillation with rapid ventricular response:
- Monitor heart rate, currently 96 today
-[id number] course 5
-EKG today morning shows normal sinus rhythm, nonspecific ST and T wave abnormality
-Amiodarone stopped because of increased QTc, continue Lopressor 2.5 mg IV every 6 hourly, eventually transition to oral beta-gil, most likely tomorrow
-Continue on heparin drip and plan to transition to oral Eliquis when bowel function is normal, most likely tomorrow
-Continue to follow-up with cardiology at surgery
SBO due to internal hernia with a small bowel volvulus status post diagnostic laparoscopy :
-Bowel sounds are present on physical examination, no nausea, no vomiting, patient had some bowel movements since yesterday
- Started on TPN on 09/15, Triglyceride levels up to 438, hold lipids today and give only 3x a week. Non-protein calories in TPN adjusted to not increase dextrose. Protein calories same.
-Currently on clear liquids, surgery would like to wait before advancing diet
Hypertriglyceridemia:
- Started on TPN on 09/15, Triglyceride levels up to 438, hold lipids today and give only 3x a week. Non-protein calories in TPN adjusted to not increase dextrose. Protein calories same.
Leukocytosis:
-10.9 trending down
- Patient is afebrile
- most likely reactive, continue to monitor
Postoperative hypovolemic shock
- Current blood pressure is 99/74, pulse is 88, O2 sat 96
- Off levophed
Volume overload due to fluid retention
acute diastolic heart failure due to fluid shift and fluid given in bert-operative period:
- VBG showed primary respiratory acidosis
- Currently on Lasix 20 mg iv
- Todays weight is 69.8 which is 2 EKGs increased from yesterday, most likely from fluids given yesterday for treating elevated blood glucose levels, will continue to monitor daily weights
- Echo shows a ejection fraction of 65-70%,
- creatinine is 0.7, BUN 36
IDDM:
- Glucose level is 218, trending down after,10 units regular insulin, and regular scheduled dose on 16 units novolog yesterday
- Bbh normal
-Continue with Q6 H insulin , increase the dose
-Insulin glargine dose is now 42 units
-Reduce dextrose in TPN
-c/w ISS
Hld
-Hold until able to tolerate po
Code Status - full code
Anticipated Discharge: 24 - 48 hours
Subjective/Interval History
-
Date of Service: September 21, 2024
No acute overnight events
Patient states that she has mild right lower quadrant abdominal pain that is intermittent since after her surgery. Continue to observe.
Objective Data
-
Labs:
Laboratory Results
09/21/24 09/21/24 09/21/24
01:26 05:40 11:54
WBC 10.6 10.9 H
Hgb 8.5 L 9.3 L
Hct 26.1 L 28.7 L
Plt Count 245 292
APTT 136.2 H Pending
Sodium 136
Potassium 4.0
Chloride 98
Carbon Dioxide 30
BUN 36 H
Creatinine 0.7
Glucose 218 H
Calcium 8.0 L
Vital Signs:
Vital Signs
Temp Pulse Resp BP Pulse Ox
98.3 F 88 18 99/74 96
09/21/24 11:00 09/21/24 11:00 09/21/24 11:00 09/21/24 11:00 09/21/24 11:00
I&O
09/20/24 09/21/24 09/22/24
06:59 06:59 06:59
Intake Total 1350.7 / 1350.7 4105 / 4105
Output Total 1375 / 1375
Balance -24.3 / -24.3 4105 / 4105
Review of Systems
-
History Source: Patient
Constitutional: Denies Fever or Chills
EENT: Denies Blurry Vision
Respiratory: Denies Cough or Trouble Breathing
Cardiac: Denies Chest Pain, Diaphoresis, Palpitations, Syncope, PND or Orthopnea
Abdomen/GI: Reports Abdominal Pain (Right lower quadrant); Denies Nausea, Vomiting, Diarrhea or Constipated
Genitourinary: Denies Dysuria
Musculoskeletal: Denies Joint Pain
Neuro: Denies Headache, Weakness or Numbness
Physical Exam
-
Respiratory: Crackles and Decreased Breath Sounds
Cardiac: Regular Rhythm, S1/S2 and Murmur (2 out of 6 systolic ejection murmur at the right upper sternal border)
GI: Soft, Nontender, Normal Bowel Sounds and Distended
Musculoskeletal: Negative Edema, Left Upper Extrem or Edema, Right Lower Extrem
Neuro: Awake, Alert, Oriented and AO x 3
Data Reviewed
-
Medical Tests (Nuc Med, Echo etc): Image personally visualized and interpreted and Discussed with Physician
Labs: Labs Reviewed by me and Discussed with Physician
[2024-09-21 12:32] LABS: APTT 138.1 Sec (23.4-35.0)
[2024-09-21] MEDS: LOPRESSOR IV (13:26)
[2024-09-21 15:00] VITALS: BP 124/63
[2024-09-21 16:15] LABS: Glucose - Point of Care 198 mg/dl (70-99)
--- NOTE | 2024-09-21 17:18 | OR.RPT ---
Operative Report
Operative Report
Patient Name: Janet Teixeira
: 1940
Date of Operation: 09/13/2024
Preoperative Diagnosis: Small bowel obstruction
Postoperative Diagnosis: Small bowel obstruction, internal hernia with small bowel volvulus
Procedure(s):
1. Diagnostic laparoscopy converted to exploratory laparotomy
2. Lysis of adhesions
Surgeon(s):
Dr. Fagan
Manager Credit Risk(s):
PENG Rivera
Anesthesia: General
Estimated Blood Loss: 23 cc
Urine Output: See anesthesia records
Drains/Lines/Implants: None
Specimens: None
Indication for surgery:
This is an 84-year-old female with a history of an infected IUD requiring surgical total abdominal hysterectomy over 40 years ago who presented to our hospital on 09/11/2024 with abdominal pain, nausea and vomiting to have a small bowel obstruction
on CT. Initially she seemed to do well with nonoperative management however on hospital day 3 she vomited and clinically looked much worse. Thorough discussion was had with the patient regarding risk benefits and alternatives and the decision was
made to proceed with surgical exploration. Consent was obtained.
Operative Findings: Dense midline omental adhesions with multiple interloop adhesions which made laparoscopic progress prohibitive. Converted to a periumbilical midline incision. Extensive lysis of adhesions (100 minutes). Most of the dense
adhesions were to the pelvis which created a window for an internal hernia/volvulus to occur. 1.8 L of effluent milked back to the stomach and removed via an NG tube was confirmed to be in proper position. Fascia closed with 0 PDS running suture.
Skin and laparoscopic ports closed with tila.
Details of the operation:
The patient was brought to the operating room and positioned supine on the operating table. General anesthesia was induced, followed by successful endotracheal intubation. An NG tube had been placed prior to the operating room and was draining bile
prior to induction. A Squires catheter was placed sterilely. The abdomen was then prepped and draped in the usual fashion. A timeout was performed to confirm the procedure and that appropriate preoperative medications and antibiotics been given.
We began by entering the abdomen using a supraumbilical vertical incision and cut down. The abdomen was entered safely with a 12 mm balloontipped trocar. 2 additional 5 mm ports were then placed in the right upper and left upper quadrants. There
was dense adhesions to the midline which we began to dissect using a laparoscopic bipolar energy device and blunt dissection. However as we the began to work our way inferiorly was clear there was fairly dense adhesions with dilated bowel which
made visualization very difficult and given the degree of the adhesions I felt it would be more expedient to proceed with open exploration so the abdomen was desufflated and our ports were removed. Her midline incision was then extended inferiorly
to allow adequate visualization of the small bowel. A large Kiran wound retractor was placed. There was multiple interloop adhesions which were taken down. Eventually we were able to identify the ligament of Treves and run the bowel in a
retrograde manner from here, it appeared the bowel was tethered down into the pelvis as expected given her prior surgery. We also identified the bowel more proximally which was fairly free and traced this antegrade also to the pelvis. There
appeared to be significant adhesions along the left lateral pelvic sidewall which were lysed and after releasing that a loop of bowel that had been twisted/volvulized through this aperture arash to an internal hernia was released. Our total lysis
time was roughly 100 minutes. The bowel was then again run in a retrograde manner. The bowel was significantly dilated so the contents were gently milked back into the duodenum and stomach. Anesthesia did communicate at this point that the NG
tube had stopped working so a new one was replaced. Roughly 1.8 L of effluent was milked back into the stomach and removed via an NG tube. The NG tube was also reconfirmed to be in good position. We then ran the bowel one more time to ensure that
there was no significant serosal injuries or missed enterotomies. There were a few small serosal tears that were inherent to the nature of the dissection that were oversewn with interrupted 3-0 Vicryl sutures, but no enterotomies were identified.
The bowel was laid in the its normal anatomical position. We then began closing our fascial defect using 0 PDS suture on a CT 2 needle starting at each apex and running it towards the middle where they were secured together. The skin was then
approximated using tila as were her port sites. An Aquacel dressing was placed over her midline incision. All counts were correct at the end of procedure. The patient tolerated the procedure well. They were extubated and taken to the recovery
area hemodynamically stable with plans to be admitted to the floor versus ICU pending their postop course.
I was the attending physician and performed the procedure with assistance from the [employer] above. I was present for all portions of the case
Todd Fagan MD
[2024-09-21] MEDS: NOVOLOG FLEXPEN-MODERATE RESISTANCE 1 UNITS SC (17:55)
[2024-09-21] MEDS: TYLENOL/FEVERALL 650 MG RECTAL (18:03)
[2024-09-21 19:28] VITALS: BP 137/57
[2024-09-21 20:14] LABS: APTT 98.1 Sec (23.4-35.0)
[2024-09-21] MEDS: Parenteral Nutrition, Central 780 IV (22:12)
[2024-09-21 22:55] VITALS: BP 120/52
[2024-09-21 23:57] LABS: Glucose - Point of Care 146 mg/dl (70-99)
[2024-09-21] MEDS: NOVOLOG FLEXPEN-MODERATE RESISTANCE SC (23:58)
[2024-09-22] MEDS: SODIUM CHLORIDE IV (00:06)
[2024-09-22] MEDS: LOPRESSOR 2.5 MG IV ×3 (02:15→12:08)
[2024-09-22] MEDS: DILAUDID 0.5 MG IV ×3 (02:16→19:11)
[2024-09-22] MEDS: TYLENOL/FEVERALL 650 MG RECTAL (02:16)
[2024-09-22 02:45] VITALS: BP 134/60
--- NOTE | 2024-09-22 02:45 | PTCARENOTE ---
pt has had 3 large liquid bm, +flatulence. pt continues w/ occasional iv Dilaudid and Compazine for pain and nausea.
heparin gtt and TPN are still currently running.
[2024-09-22 04:27] LABS: Hematocrit 25.5 % (37.0-47.0); Hemoglobin 8.5 g/dL (12.0-16.0); Mean Corp Hgb Conc. 33.3 g/dL (33.0-37.0); Mean Corpuscular Hgb 29.2 pg (27.0-31.0); Mean Corpuscular Volume 87.6 fL (81.0-99.0); Mean Platelet Volume 10.6 fL (7.4-10.4); Platelet Count 282 10^3/uL (130-400); Red Blood Cell Count 2.91 10^6/uL (4.20-5.40); White Blood Cell Count 10.3 10^3/uL (4.8-10.8)
[2024-09-22 04:35] LABS: APTT 63.5 Sec (23.4-35.0)
[2024-09-22 04:59] LABS: Blood Urea Nitrogen 33 mg/dl (7-17); Carbon Dioxide 26 mmol/L (22-30); Chloride 100 mmol/L (98-107); Estimated Creatinine Clearance 52 ml/min; Glucose 57 mg/dl (70-99); Potassium 3.7 mmol/L (3.5-5.1); Sodium 136 mmol/L (135-145); eGFR > 60.00
[2024-09-22 06:00] VITALS: BMI 29.8
[2024-09-22 06:00] LABS: Glucose - Point of Care 133 mg/dl (70-99)
[2024-09-22] MEDS: NOVOLOG FLEXPEN-MODERATE RESISTANCE SC ×3 (06:13→17:09)
[2024-09-22] MEDS: NOVOLOG FLEXPEN 20 UNITS SC ×2 (06:13)
[2024-09-22 07:00] VITALS: BP 141/63
--- NOTE | 2024-09-22 07:54 | PN.DE.MGMTRT ---
Addendum entered and electronically signed by MELLO Santo 09/22/24 15:00:
TPN to be discontinued after current bag, diet has been advanced to full liquid diet.
Will change NovoLog to AC and reduce current dose to 6 units AC
Original Note:
Insulin Management
- -
09/22/2024: Diabetes Management F/U:
84 year old Female with PMH: IDDM, HTN, HLD and a complex total abdominal hysterectomy for an infected IUD 50 years ago. Pt presented to the hospital with 2 days of abdominal pain on 09/13, found to have SBO 2/2 adhesions. Now POD#3 S/P DIAG-LAP
converted to EXP-LAP With Extensive PANCHITO for Internal Hernia with SB Volvulus and Acute SBO. 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 A1C 7.7%, Cr 0.9, eGFR>60
Pt awake, alert, sitting up in chair, daughter- Sussy and pt's sister at bedside, supportive and involved in discussion about diabetes mgt
Pt remains on clear liquid diet and eating a little more each day. currently waiting to go down for CT A/P
TPN Dextrose reduced to 150gm last night. Glucose trending down, was 146@ HS and 57 (V) @ 2AM, FBG 133 POC this AM
Will reduce NovoLog 12 units Q6 hrs and Lantus to 25 units in AM. Cont moderate corrective Q6hrs
Will switch back to her oral regimen when TPN dc'd and diet has fully been advanced.
Plan of care discussed with Pt, family and Nurse
Diabetes History
- -
Type of Diabetes: 2 requiring insulin
Pre-Admission Diabetes Regimen
09/22/24
02:03
Creatinine 0.7
Lab Results
Hemoglobin A1c 7.7 % (4.0-5.6) H 09/17/24 04:10
Insulin Pump Settings
IP Diabetes Regimen
09/21/24 09/21/24 09/21/24
11:33 16:12 23:56
Glucose
POC Glucose 259 H 198 H 146 H
09/22/24 09/22/24
02:03 05:59
Glucose 57 L
POC Glucose 133 H
Meal type: Lunch
Amount consumed: 75%
Patient Education
[2024-09-22] MEDS: LASIX 20 MG IV ×2 (08:16→11:08)
[2024-09-22] MEDS: PROTONIX IV 40 MG IV (08:16)
[2024-09-22] MEDS: NSS (PRESERVATIVE FREE) 10 ML IV (08:17)
[2024-09-22] MEDS: LANTUS SC (08:18)
[2024-09-22 08:40] LABS: Glucose - Point of Care 112 mg/dl (70-99)
[2024-09-22] MEDS: LANTUS 0.25 UNITS SC (10:02)
--- NOTE | 2024-09-22 10:54 | CM ---
Reviewed the chart notes and spoke with the patient and her daughter at the bedside. Patient's diet currently is clears. The patient and family are interested in SNF. Reviewed area SNFs. Referrals placed in [facility]. CM continues to be
available to patient/family and is monitoring medical plan for needs at discharge.
Plan: Discharge to SNF once bed secured and auth received.
--- NOTE | 2024-09-22 11:52 | W.PN.HOSP.TC ---
Addendum entered and electronically signed by Marques Rollins MD 09/22/24 16:59:
iddm c/b hypergglycemia
-hyperglycemia improved with interventions provided yesterday
-there was no concern for dka
-gb 140-180
-cld, advance as tolerated to ccdiet per surgeyr
-long and short acting insulin
-accuchecks
sbo s/p anitha, pod 8
-on tpn wean as tolerated
-surgery following
-started on cld
-advance as tolerated
fever x1
-no white count
-resolved with rectal tylenol
-ID consulted
-CTAP ordered but DC'ed by Surgery as not concerned for post op comp at this time as the RLQ tenderness is focal and on going along with fever x1.
parox afib, back in sr
-on hep gtt
-continue bb
-amio dc'ed
-cardiology following
prolonged qtc
-avoid agents that prolong
volume overload, no hx of heart failure, 2d echo reviewed, without evidence of hf documented
-did recieve ivf on 09/20 for hyperglycemia
-will give additional iv lasix now
-cardiology following
Original Note:
Today's Communication/Plan
-
- follow up with surgery regarding transition of diet
- follow up with ID
- Follow up with cardiology
Assessment / Plan
Assessment / Plan
New onset Atrial fibrillation with rapid ventricular response:
- Monitor heart rate, currently 88 today
-[id number] course 5
- Transition to oral beta gil today
-Transition to oral Eliquis today 5 mg BID
-Continue to follow-up with cardiology
SBO due to internal hernia with a small bowel volvulus status post diagnostic laparoscopy :
-Bowel sounds are present on physical examination, no nausea, no vomiting, patient had some bowel movements since yesterday
- Started on TPN on 09/15, Triglyceride levels up to 438, hold lipids today and give only 3x a week. Non-protein calories in TPN adjusted to not increase dextrose. Protein calories same.
-Currently on clear liquids, surgery would like to wait before advancing diet
Acute diarrhea with fever:
- Has had multiple episodes over the last few days, could be due to TPN vs post op infection
- Non bloody, non foul smelling, associated abdominal pain and low grade fever of 100.4 last night, WBC 10.3 normal
- ordered C Diff testing
- Placed consult for infectious disease
- general surgery informed of fever and stated not to worry until fever crosses 101 post op, cancelled CT scan
Hypertriglyceridemia:
- Started on TPN on 09/15, Triglyceride levels up to 438, hold lipids today and give only 3x a week. Non-protein calories in TPN adjusted to not increase dextrose. Protein calories same.
Leukocytosis:
-10.3 trending down
- most likely reactive, continue to monitor
Postoperative hypovolemic shock
- Current blood pressure is 125/61, pulse is 89, O2 sat 96 on room air
- Off levophed
Volume overload due to fluid retention
acute diastolic heart failure due to fluid shift and fluid given in bert-operative period:
- Advised patient to continue using incentive spirometer
- Added an additional 20 mg lasix iv in addition what she is already receiving because of weight gain and cracklesheard on physical examination
- Todays weight is which is 71.4 which is 2 kgs weight gain from yesterday, most likely from fluids given yesterday for treating elevated blood glucose levels, will continue to monitor daily weights
- Echo shows a ejection fraction of 65-70%,
- creatinine is 0.7, BUN 36
IDDM:
- Glucose level is 112 trending down
-Continue with Q6 H insulin , increase the dose
-Insulin glargine dose is now 25 units,insulin aspart is 12 units
-c/w ISS
Hld
-Hold until able to tolerate po
Code Status - full code
Anticipated Discharge: 24 - 48 hours
Subjective/Interval History
-
Date of Service: September 22, 2024
Patient has had non bloody, 3 in number , non foul smelling episodes of diarrhea from this morning. She is also complaining of mild, constant abdominal pain for the past couple of days.
Objective Data
-
Labs:
Laboratory Results
09/22/24 09/22/24
02:03 11:00
WBC 10.3
Hgb 8.5 L
Hct 25.5 L
Plt Count 282
APTT 63.5 H Pending
Sodium 136
Potassium 3.7
Chloride 100
Carbon Dioxide 26
BUN 33 H
Creatinine 0.7
Glucose 57 L
Calcium 8.0 L
Vital Signs:
Vital Signs
Temp Pulse Resp BP Pulse Ox
99.1 F 88 18 129/62 96
09/22/24 07:00 09/22/24 11:08 09/22/24 07:00 09/22/24 11:08 09/22/24 07:00
I&O
09/21/24 09/22/24 09/23/24
06:59 06:59 06:59
Intake Total 4105 / 4105 2825 / 2825
Balance 4105 / 4105 2825 / 2825
Review of Systems
-
History Source: Patient
Constitutional: Denies Fever or Chills
EENT: Denies Blurry Vision
Respiratory: Denies Cough or Trouble Breathing
Cardiac: Denies Chest Pain, Diaphoresis, Palpitations, Syncope, PND or Orthopnea
Abdomen/GI: Reports Abdominal Pain (Right lower quadrant) and Diarrhea; Denies Nausea, Vomiting or Constipated
Genitourinary: Denies Dysuria
Musculoskeletal: Denies Joint Pain
Neuro: Denies Headache, Weakness or Numbness
Physical Exam
-
Respiratory: Crackles and Decreased Breath Sounds
Cardiac: Regular Rhythm, S1/S2 and Murmur (2 out of 6 systolic ejection murmur at the right upper sternal border)
GI: Soft, Normal Bowel Sounds, Tender (in the hypogastric region) and Distended
Musculoskeletal: Negative Edema, Left Upper Extrem or Edema, Right Lower Extrem
Neuro: Awake, Alert, Oriented and AO x 3
Data Reviewed
-
Medical Tests (Nuc Med, Echo etc): Image personally visualized and interpreted and Discussed with Physician
Labs: Labs Reviewed by me and Discussed with Physician
[2024-09-22] MEDS: OMNIPAQUE 50 ML PO (12:06)
[2024-09-22 12:08] VITALS: BP 125/61
[2024-09-22] MEDS: NOVOLOG FLEXPEN 12 UNITS SC (12:16)
[2024-09-22 12:22] LABS: Glucose - Point of Care 130 mg/dl (70-99)
[2024-09-22 12:30] LABS: APTT 47.4 Sec (23.4-35.0)
--- NOTE | 2024-09-22 12:51 | CON.ID ---
Consultation
-
Date/Time Consultation Requested: September 22, 2024 1042
Date/Time Consultation Performed: September 22, 2024 1250
Requesting Provider: Dr.Jitesh Chow
Performing Provider: Dr. Jennifer Landaverde
Reason for Consultation: Fever, diarrhea post-op
Chief Complaint / Past History
Chief Complaint
Abdominal pain
History of Present Illness
84-year-old female with history diabetes mellitus, remote history of hysterectomy, who presented to the hospital on September 10, 2024 complaining of severe lower abdominal pain. Positive nausea and vomiting. No diarrhea. Poor p.o. intake. No
fevers or chills. In the ER CAT scan of the abdomen pelvis showed small bowel obstruction. She failed conservative management. September 13, she was taken to the OR for diagnostic laparoscopy converted to expiratory laparotomy, found to have
internal hernia with small bowel volvulus, status post extensive lysis of adhesions. She received Zosyn from September 13 to September 18. PICC line placed and she is currently on TPN. Postop complicated by new onset atrial fibrillation with RVR,
now rate controlled. Per daughter at bedside, once patient had small bowel movement, NG tube was removed and clear liquid diet initiated about 4 days ago. She then started having large loose bowel movements. Over the past 2 days, bowel movements
have been liquid. She is unable to control her stool; 'it just comes right out'. She had 3 bowel movements this am. Last one was at 10 AM which was small and only a smidge. Positive gas/flatus. Her abdominal pain is overall improving. Patient
reports no subjective fever, chills or sweats. No vomiting. No cough or shortness of breath. No dysuria. Positive urinary frequency from furosemide. Her diet is being advanced to full today.
Past History
Additional Past Medical History:
Diabetes mellitus
Hypertension
Dyslipidemia
History of infected IUD status post complex total abdominal hysterectomy 30 years ago
Appendectomy
Allergy History:
No Known Allergies Allergy (Verified 09/10/24 21:45)
Medications Reviewed: Yes
Current Antibiotics:
s/p Zosyn x 4d
Social History
Tobacco: Non-Smoker
Alcohol: Occasional
Drug: None
Personal: Single
Family History
Family History: Not Pertinent
Review of Systems
Review of Systems
General: Negative Fever or Chills
HEENT: Negative Sinus Problems, Headache or Pharyngitis
Cardiovascular: Negative Chest Pain or Dyspnea
Respiratory: Negative Dyspnea or Cough
Gasteroenterology: Diarrhea; Negative Nausea or Vomiting
Genital / Urological: Negative Dysuria or Flank Pain
Endocrine: Weakness
Musculoskeletal: Negative Arthralgias
Neurological: Negative Dizziness
All systems: All other systems were reviewed and were negative
Vital Signs
Temp Pulse Resp BP Pulse Ox
98.6 F 89 18 125/61 96
09/22/24 12:08 09/22/24 12:08 09/22/24 12:08 09/22/24 12:08 09/22/24 12:08
Selected Entries
09/22/24
02:45
Temp 100.4 F H
Physical Exam
Physical Exam
Constitutional: No Acute Distress and Comfortable
Head: Other (No frontal or max or sinus tenderness)
Eyes: No Conjunctival Hemorrhage and Sclera Anicteric
Cardiovascular: Regular Rate and S1/S2
Pulmonary: Other (Decreased breath sounds at the bases)
Gastrointestinal: Soft, Tender (Minimal tenderness right lower abdomen), Distended (Mild), Normal Bowel Sounds (Few high-pitched bowel sounds.) and Other (Midline incision with tila, clean, dry, no erythema)
Genito-Urinary: Negative CVA Tenderness
Extremities: Edema (Trace ankle edema); Negative Erythema
Neurological: AO x 3
Lines: PICC (No erythema)
Lab / Diagnostic Study Results
09/22/24 02:03
09/22/24 02:03
Abs Immat Gran (auto) 0.0 10^3/uL (0-0.05) 09/13/24 08:34
Absolute Neuts (auto) 1.6 10^3/uL (1.4-6.5) 09/13/24 08:34
Absolute Lymphs (auto) 0.7 10^3/uL (1.2-3.4) L 09/13/24 08:34
Absolute Monos (auto) 0.5 10^3/uL (0.1-0.6) 09/13/24 08:34
Absolute Basos (auto) 0.0 10^3/uL (0-0.2) 09/13/24 08:34
Total Counted 100 09/15/24 11:30
Immature Gran % 0.7 % (0-0.5) H 09/13/24 08:34
Neutrophils % 55.4 % (42.2-75.2) 09/13/24 08:34
Lymphocytes % 24.5 % (20.5-51.1) 09/13/24 08:34
Monocytes % 17.0 % (1.7-9.3) H 09/13/24 08:34
Eosinophils % 1.7 % (0-6) 09/13/24 08:34
Basophils % 0.7 % (0-2) 09/13/24 08:34
Abs Neuts (Manual) 0.6 10^3/uL (1.4-6.5) L* 09/15/24 11:30
Segmented Neutrophils 26 % (42-75) L 09/15/24 11:30
Band Neutrophils 12 % (0-3) H D 09/15/24 11:30
Lymphocytes (Manual) 33 % (20-51) 09/15/24 11:30
Eosinophils (Manual) 1 % (0-6) 09/15/24 11:30
ESR 17 mm/hour (0-20) 09/13/24 18:57
PT 14.6 Sec (11.4-14.6) 09/13/24 21:03
INR 1.10 09/13/24 21:03
Lactic Acid 1.2 mmol/L (0.7-2.0) 09/20/24 23:06
Procalcitonin 28.42 ng/ml (0.0-0.25) H* 09/15/24 07:57
Ur Squamous Epith Cells 0-2 /LPF (Few) 09/15/24 16:30
Microbiology Results
Micro:
09/20/24 19:45 Blood Culture - Preliminary
Blood/Venous No Growth in 24 hours- Final report to follow
09/20/24 18:52 Blood Culture - Preliminary
Blood/Venous No Growth in 24 hours- Final report to follow
09/15/24 16:37 Blood Culture - Final
Blood/Venous No Growth - Final Report
09/15/24 16:30 Urine Culture - Final
Urine NO GROWTH
09/10/24 22:06 Influenza Types A & B (TRISTEN) - Final
Nasal Swab Negative for Influenza A & B, NAAT
Negative results must be combined with clinical observations
and patient history.
Nucleic Acid Amplification test (NAAT)performed on the
[employer] platform.
09/11/24 CT a/p: Distal small bowel obstruction with transition point in the low anterior pelvis.
09/13/24 CXR: Nasogastric tube extends into the stomach. No acute cardiopulmonary process.
09/16/24 CT a/p: Possible developing small bowel obstruction versus small bowel ileus. See above. Progressed. Mild bibasilar consolidation. Probable atelectasis. Developing pneumonia not excluded. New.
09/16/24 ABD XRAY: Mild small bowel dilatation. Improved. Probable small bowel ileus. Postsurgical change. New
Assessment / Plan
# Diarrhea
# Low-grade temperature x 1
# SBO due to internal hernia and volvulus status post extensive lysis of adhesion 09/13.
- Suspect diarrhea due to return of bowel function, still with decreased absorption function of intestinal lining.
Onset of diarrhea correlates with start of liquid diet.
- No need to work-up the low grade temp of 100.4 x 1 at this time
-Continue to monitor stool output and consistency.
- Trend temps.
# Conditions prior to admission
Diabetes mellitus
Hypertension
Dyslipidemia
History of infected IUD status post complex total abdominal hysterectomy 30 years ago
Appendectomy
--- NOTE | 2024-09-22 14:00 | W.PN.GS2 ---
Today's Communication / Plan
-
DC TPN
Adv to FLD
Assessment / Plan
-
Assessment: 84F who is POD#9 s/p lap to open PANCHITO for internal hernia/SBO (09/13/2024) - doing well, expected postoperative course.
single low grade temp episode
WBC normalized, Hb labile without clear downward trend
Pt without new complaints, now passing BMs and flatus
DC TPN after current bag is completed
Adv to FLD with chocolate ensure x2 (pt request)
Protonix for GI prophylaxis
Heparin gtt continued given postop A-fib episode, hemoglobin stable at 8.5
OOB/Ambulate.
PT/OT
Subjective Data
-
Date of Service: September 22, 2024
Improving, looks and feels well, denies pain,ambulating, denies n/v, taking plenty of PO fluids, low grade temp x1 is noted
Objective Data
-
Intake and Output
09/21/24 09/22/24 09/23/24
06:59 06:59 06:59
Intake Total 4105 / 4105 2825 / 2825
Balance 4105 / 4105 2825 / 2825
Intake:
Oral fluids 1660 / 1660 1480 / 1480
IV fluids (Total) 1800 / 1800 300 / 300
IV piggybacks 213 / 213 210 / 210
TPN/PPN 432 / 432 835 / 835
Other:
Number of approximated MODERATE 1 5
amounts of urine
Number of approximated LARGE 1
amounts of urine
How many times incontinent 1
SATURATED amount urine
Vital Signs
Temp Pulse Resp BP Pulse Ox
98.6 F 89 18 125/61 96
09/22/24 12:08 09/22/24 12:08 09/22/24 12:08 09/22/24 12:08 09/22/24 12:08
Lab Results
09/22/24 02:03
09/22/24 02:03
Calcium 8.0 mg/dl (8.4-10.2) L 09/22/24 02:03
Phosphorus 3.1 mg/dl (2.5-4.5) 09/19/24 04:36
Magnesium 2.0 mg/dl (1.6-2.3) 09/20/24 04:14
Total Bilirubin 0.5 mg/dl (0.2-1.3) 09/20/24 04:14
AST 21 U/L (14-36) 09/20/24 04:14
ALT 16 U/L (0-35) 09/20/24 04:14
Alkaline Phosphatase 121 U/L (38-126) 09/20/24 04:14
Total Protein 4.9 g/dl (6.3-8.2) L 09/20/24 04:14
Albumin 2.5 g/dl (3.5-5.0) L 09/20/24 04:14
Physical Exam
-
Gen: NAD
Abd: soft, focal mild ttp to right mid abdomen
--- NOTE | 2024-09-22 14:22 | W.PN.CARDCBS ---
Today's Communication / Plan
-
remains in sr
cont Iv heparin until ok to start eliquis
Impression / Plan
-
.
Family Physician: Natasha Bojorquez
Cardiology: None prior to admission, initially seen by Dr Barger
Impression:
Presented 09/11/2024 with abdominal pain, fever, leukocytosis
Acute SBO likely from prior adhesions status post diagnostic laparoscopy converted to ex lap with lysis of adhesions 09/13/2024
Leukopenia
TYRON, creatinine 1.2
Metabolic acidosis, mild
Hyperglycemia
Hypocalcemia
Atrial fibrillation with rapid ventricular response, new diagnosis, spontaneously converted to sinus
Abnormal troponin
Type 2 diabetes, insulin dependent
Hypertension
Hyperlipidemia
Dysphagia from Schatzki's ring status post esophageal dilation
Colon polyps
Hysterectomy
Echo 09/15/2024: Small left ventricle, mild LVH, mid cavity gradient, EF 65-70%, rhythm is A-fib, normal RV, trace MR, aortic sclerosis/mild stenosis peak gradient 17 and 9, valve area 1.8 cm2. Pulmonary artery pressure 38. Small pericardial
effusion
Plan:
remains in sr
cont iv Heparin until ok to start Eliquis
d/w primary service and general surgery
Cont IV Lopressor 2.5 mg Q6 with hold parameters with eventual transition to oral beta-gil. Patient had been on atenolol 50 mg daily at time of admission
Volume status ok
Discussed with patient/family at bedside.
HPI 09/15/2024:
Patient is an 84-year-old female with past medical history significant for insulin-dependent diabetes, hypertension, hyperlipidemia who presents to the emergent department 09/11/2024 with 2 days of abdominal pain and was found to have low-grade
fever and leukocytosis. CT of the abdomen pelvis showed acute small bowel obstruction in the proximal ileum at the pelvic junction. Underwent diag lap with conversion to ex lap and PANCHITO 09/13/24. In the evening of 09/14/2024 patient developed
atrial fibrillation with rapid ventricular response. Patient was provided IV Lopressor with improvement of heart rates and started on IV Cardizem and heparin drip. Patient hypotensive requiring IV pressors with Levophed.
Patient's son at bedside. He helps provide history. Patient has no prior cardiac history and has never seen a jailkeeper. Patient notes some mild intermittent palpitations but denies chest pain or shortness of breath
Progress Note - Attic Blower
Subjective
Date of Service: September 22, 2024
no complaints
Objective
Labs:
09/22/24 02:03
09/22/24 02:03
Labs
Hgb 8.5 g/dL (12.0-16.0) L 09/22/24 02:03
Hct 25.5 % (37.0-47.0) L 09/22/24 02:03
Plt Count 282 10^3/uL (130-400) 09/22/24 02:03
PT 14.6 Sec (11.4-14.6) 09/13/24 21:03
INR 1.10 09/13/24 21:03
APTT 47.4 Sec (23.4-35.0) H 09/22/24 12:02
Sodium 136 mmol/L (135-145) 09/22/24 02:03
Potassium 3.7 mmol/L (3.5-5.1) 09/22/24 02:03
BUN 33 mg/dl (7-17) H 09/22/24 02:03
Creatinine 0.7 mg/dL (0.6-1.0) 09/22/24 02:03
Glucose 57 mg/dl (70-99) L 09/22/24 02:03
Vital Signs and I&O:
Vital Signs
Temp Pulse Resp BP Pulse Ox
98.6 F 89 18 125/61 96
09/22/24 12:08 09/22/24 12:08 09/22/24 12:09/22/24 12:08 09/22/24 12:08
Vital Signs
Temp Pulse Resp BP Pulse Ox
98.6 F 89 18 125/61 96
09/22/24 12:08 09/22/24 12:08 09/22/24 12:08 09/22/24 12:08 09/22/24 12:08
Intake & Output
09/20/24 09/21/24 09/22/24 09/23/24
06:59 06:59 06:59 06:59
Intake Total 1350.7 / 1350.7 4105 / 4105 2825 / 2825
Output Total 1375 / 1375
Balance -24.3 / -24.3 4105 / 4105 2825 / 2825
Physical Exam
Physical Exam
General: Well developed, well nourished in NAD.
Neck: Supple, no JVD, HJR, carotids +2 B/L, no bruits bilaterally.
Heart: Non displaced PMI, RRR, no murmurs, No S3, S4, no rubs.
Lungs: Clear to auscultation bilaterally, no wheeze, rhonchi, rubs bilaterally,
normal expiratory phase.
Abdomen: distended.
Extremities: No clubbing, cyanosis or edema bilaterally.
Neuro: Grossly nonfocal, awake, alert and oriented x3.
[2024-09-22 14:40] VITALS: BP 132/59
[2024-09-22] MEDS: ELIQUIS 5 MG PO (14:55)
[2024-09-22] MEDS: COMPAZINE 10 MG IV ×2 (14:55→23:10)
--- NOTE | 2024-09-22 15:00 | CHAP ---
Msgr. Shiraz Sal of [facility] in [place] anointed Janet and gave her Holy Communion.
[2024-09-22 17:05] LABS: Glucose - Point of Care 97 mg/dl (70-99)
[2024-09-22] MEDS: NOVOLOG FLEXPEN 6 UNITS SC (17:33)
[2024-09-22 19:33] VITALS: BP 127/71
[2024-09-22 22:13] LABS: Glucose - Point of Care 77 mg/dl (70-99)
[2024-09-22] MEDS: TENORMIN 25 MG PO (22:23)
[2024-09-22 22:55] VITALS: BP 133/62
[2024-09-22] MEDS: DILAUDID 0.25 MG IV (23:09)
[2024-09-23] VITALS (7 sets, daily range): BP systolic 95–124; BP diastolic 42–52; PULSE 77; O2SAT 97; BMI 29.2
[2024-09-23 02:19] LABS: Glucose - Point of Care 155 mg/dl (70-99)
[2024-09-23] MEDS: TYLENOL 650 MG PO ×3 (02:45→23:54)
--- NOTE | 2024-09-23 03:22 | PTCARENOTE ---
pt up using bsc d/t diarrhea. stool sample sent. pt c/o abdominal pain. pt reposition back in bed and multiple pillows. pt fell asleep.
--- NOTE | 2024-09-23 03:24 | PTCARENOTE ---
pt accucheck at 2210=77 - pt drinking her ensure through at the night. recheck at 0230 [id number]
[2024-09-23 04:50] LABS: Blood Urea Nitrogen 29 mg/dl (7-17); Calcium 7.9 mg/dl (8.4-10.2); Carbon Dioxide 24 mmol/L (22-30); Chloride 98 mmol/L (98-107); Estimated Creatinine Clearance 40 ml/min; Glucose 148 mg/dl (70-99); Potassium 4.1 mmol/L (3.5-5.1); Sodium 134 mmol/L (135-145); eGFR > 60.00
[2024-09-23 04:51] LABS: Hemoglobin 7.9 g/dL (12.0-16.0); Mean Corp Hgb Conc. 32.9 g/dL (33.0-37.0); Mean Corpuscular Hgb 29.7 pg (27.0-31.0); Mean Corpuscular Volume 90.2 fL (81.0-99.0); Mean Platelet Volume 10.5 fL (7.4-10.4); Platelet Count 310 10^3/uL (130-400); Red Blood Cell Count 2.66 10^6/uL (4.20-5.40); Red Cell Dist. Width 14.6 % (11.5-14.5); White Blood Cell Count 12.7 10^3/uL (4.8-10.8)
[2024-09-23] MEDS: ELIQUIS 5 MG PO (05:55)
--- NOTE | 2024-09-23 07:44 | PN.DE.MGMTRT ---
Insulin Management
- -
09/23/2024: Diabetes Management F/U:
84 year old Female with PMH: IDDM, HTN, HLD and a complex total abdominal hysterectomy for an infected IUD 50 years ago. Pt presented to the hospital with 2 days of abdominal pain on 09/13, found to have SBO 2/2 adhesions. Now POD#3 S/P DIAG-LAP
converted to EXP-LAP With Extensive PANCHITO for Internal Hernia with SB Volvulus and Acute SBO. 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 A1C 7.7%, Cr 0.9, eGFR>60
Pt awake, alert, sitting up in chair, daughter-Emily Henry at bedside, supportive and involved in discussion about diabetes mgt
09/22 Off TPN. Glucose stable since coming off TPN. HS glucose was 77, pt did not receive Lantus, FBG 148(V) this AM
Diet was advanced to full liquid for breakfast and will start low residue at lunch.
Will stop AC NovoLog after lunch time dose and start Glipizide 5mg BID, 1st dose at dinner time, change corrective from moderate to low with meals.
Cont Lantus to 25 units in AM. Will start Metformin and Januvia in the morning.
Plan of care discussed with Pt, Dtr and Nurse
Diabetes History
- -
Type of Diabetes: 2 requiring insulin
Pre-Admission Diabetes Regimen
09/23/24
04:04
Creatinine 0.9
Lab Results
Hemoglobin A1c 7.7 % (4.0-5.6) H 09/17/24 04:10
Insulin Pump Settings
IP Diabetes Regimen
09/22/24 09/22/24 09/22/24
08:36 12:14 17:03
Glucose
POC Glucose 112 H 130 H 97
09/22/24 09/23/24 09/23/24
22:11 02:17 04:04
Glucose 148 H
POC Glucose 77 155 H
Meal type: Breakfast
Amount consumed: 100%
Patient Education
[2024-09-23 08:01] LABS: Glucose - Point of Care 163 mg/dl (70-99)
[2024-09-23] MEDS: NSS (PRESERVATIVE FREE) 10 ML IV (08:56)
[2024-09-23] MEDS: TENORMIN 50 MG PO (08:57)
[2024-09-23] MEDS: PROTONIX IV 40 MG IV (08:57)
[2024-09-23] MEDS: LASIX 20 MG IV (08:57)
[2024-09-23] MEDS: LANTUS 0.25 UNITS SC (08:59)
[2024-09-23] MEDS: NOVOLOG FLEXPEN-MODERATE RESISTANCE 1 UNITS SC (09:00)
[2024-09-23] MEDS: NOVOLOG FLEXPEN 6 UNITS SC ×2 (09:01→12:29)
--- NOTE | 2024-09-23 09:16 | W.PN.CARDCBS ---
Today's Communication / Plan
-
Remains in sinus rhythm
Continue IV heparin until okay to start Eliquis
Continue IV Lopressor until adequately taking p.o.'s then changed to oral beta-gil. She was on atenolol at home and might consider changing to Toprol
Impression / Plan
-
.
Family Physician: Natasha Bojorquez
Cardiology: None prior to admission, initially seen by Dr Barger
Impression:
Presented 09/11/2024 with abdominal pain, fever, leukocytosis
Acute SBO likely from prior adhesions status post diagnostic laparoscopy converted to ex lap with lysis of adhesions 09/13/2024
Leukopenia
TYRON, creatinine 1.2
Metabolic acidosis, mild
Hyperglycemia
Hypocalcemia
Atrial fibrillation with rapid ventricular response, new diagnosis, spontaneously converted to sinus
Abnormal troponin
Type 2 diabetes, insulin dependent
Hypertension
Hyperlipidemia
Dysphagia from Schatzki's ring status post esophageal dilation
Colon polyps
Hysterectomy
Echo 09/15/2024: Small left ventricle, mild LVH, mid cavity gradient, EF 65-70%, rhythm is A-fib, normal RV, trace MR, aortic sclerosis/mild stenosis peak gradient 17 and 9, valve area 1.8 cm2. Pulmonary artery pressure 38. Small pericardial
effusion
Plan:
She remains in sinus rhythm.
Await clearance to start Eliquis
Continue IV heparin for now
Cont IV Lopressor 2.5 mg Q6 with hold parameters with eventual transition to oral beta-gil. She was on atenolol at home and might consider changing to Toprol
Volume status ok
HPI 09/15/2024:
Patient is an 84-year-old female with past medical history significant for insulin-dependent diabetes, hypertension, hyperlipidemia who presents to the emergent department 09/11/2024 with 2 days of abdominal pain and was found to have low-grade
fever and leukocytosis. CT of the abdomen pelvis showed acute small bowel obstruction in the proximal ileum at the pelvic junction. Underwent diag lap with conversion to ex lap and PANCHITO 09/13/24. In the evening of 09/14/2024 patient developed
atrial fibrillation with rapid ventricular response. Patient was provided IV Lopressor with improvement of heart rates and started on IV Cardizem and heparin drip. Patient hypotensive requiring IV pressors with Levophed.
Patient's son at bedside. He helps provide history. Patient has no prior cardiac history and has never seen a macerator operator. Patient notes some mild intermittent palpitations but denies chest pain or shortness of breath
Progress Note - Printing Supplies Sales Representative
Subjective
Date of Service: September 23, 2024
No chest pain or shortness of breath. Remains in sinus rhythm
Objective
Labs:
09/23/24 04:04
09/23/24 04:04
Labs
Hgb 7.9 g/dL (12.0-16.0) L 09/23/24 04:04
Hct 24.0 % (37.0-47.0) L 09/23/24 04:04
Plt Count 310 10^3/uL (130-400) 09/23/24 04:04
PT 14.6 Sec (11.4-14.6) 09/13/24 21:03
INR 1.10 09/13/24 21:03
APTT 47.4 Sec (23.4-35.0) H 09/22/24 12:02
Sodium 134 mmol/L (135-145) L 09/23/24 04:04
Potassium 4.1 mmol/L (3.5-5.1) 09/23/24 04:04
BUN 29 mg/dl (7-17) H 09/23/24 04:04
Creatinine 0.9 mg/dL (0.6-1.0) 09/23/24 04:04
Glucose 148 mg/dl (70-99) H 09/23/24 04:04
Vital Signs and I&O:
Vital Signs
Temp Pulse Resp BP Pulse Ox
98.2 F 72 14 102/45 97
09/23/24 07:58 09/23/24 07:58 09/23/24 07:58 09/23/24 07:58 09/23/24 07:58
Vital Signs
Temp Pulse Resp BP Pulse Ox
98.2 F 72 14 102/45 97
09/23/24 07:58 09/23/24 07:58 09/23/24 07:58 09/23/24 07:58 09/23/24 07:58
Intake & Output
09/21/24 09/22/24 09/23/24 09/24/24
06:59 06:59 06:59 06:59
Intake Total 4105 / 4105 2825 / 2825 790 / 790
Balance 4105 / 4105 2825 / 2825 790 / 790
Physical Exam
Physical Exam
General: Well developed, well nourished in NAD.
Neck: Supple, no JVD, HJR, carotids +2 B/L, no bruits bilaterally.
Heart: Non displaced PMI, RRR, no murmurs, No S3, S4, no rubs.
Lungs: Clear to auscultation bilaterally, no wheeze, rhonchi, rubs bilaterally,
normal expiratory phase.
Extremities: No clubbing, cyanosis or edema bilaterally.
Neuro: Grossly nonfocal, awake, alert and oriented x3.
--- NOTE | 2024-09-23 10:11 | W.PN.ID1 ---
Date of Service
Date of Service: September 23, 2024
Today's Communication
Continue supportive care.
Assessment / Plan
# Diarrhea improving
# Low-grade temperature x 1, resolved
# Leukocytosis waxing and waning.
# SBO due to internal hernia and volvulus status post extensive lysis of adhesion 09/13.
- Suspect diarrhea due to return of bowel function, with decreased absorption function of intestinal lining.
Onset of diarrhea correlates with start of liquid diet.
- Diarrhea improving. C. diff negative
-Continue to monitor stool output and consistency.
- Trend wbc
# Conditions prior to admission
Diabetes mellitus
Hypertension
Dyslipidemia
History of infected IUD status post complex total abdominal hysterectomy 30 years ago
Appendectomy
Chief Complaint
-: Other (Diarrhea)
Subjective / Review of Systems
Diarrhea improving, slowing down.
Tolerating full liquid diet. Will start low residual diet at lunchtime.
Abd pain continues to improve.
Vital Signs / Physical Exam
Vital Signs
Vital Signs
Temp Pulse Resp BP Pulse Ox
98.2 F 72 14 102/45 97
09/23/24 07:58 09/23/24 07:58 09/23/24 07:58 09/23/24 07:58 09/23/24 07:58
Physical Exam
Constitutional: No Acute Distress and Comfortable
Pulmonary: Clear
Gastrointestinal: Soft, Non Tender, Normal Bowel Sounds and Other
Neurological: AO x 3
Objective Data
Lab Data
Lab Results
09/23/24 04:04
09/23/24 04:04
ESR 17 mm/hour (0-20) 09/13/24 18:57
PT 14.6 Sec (11.4-14.6) 09/13/24 21:03
INR 1.10 09/13/24 21:03
APTT 47.4 Sec (23.4-35.0) H 09/22/24 12:02
Estimated Creat Clear 40 ml/min 09/23/24 04:04
Lactic Acid 1.2 mmol/L (0.7-2.0) 09/20/24 23:06
Total Bilirubin 0.5 mg/dl (0.2-1.3) 09/20/24 04:14
AST 21 U/L (14-36) 09/20/24 04:14
ALT 16 U/L (0-35) 09/20/24 04:14
Alkaline Phosphatase 121 U/L (38-126) 09/20/24 04:14
Most recent labs reviewed.
Micro Results:
09/23/24 02:10 C. difficile GDH Antigen & Toxins - Final
Feces/Stool Negative for toxigenic C.difficile
09/20/24 19:45 Blood Culture - Preliminary
Blood/Venous No Growth in 48 hours- Final report to follow
09/20/24 18:52 Blood Culture - Preliminary
Blood/Venous No Growth in 48 hours- Final report to follow
09/15/24 16:37 Blood Culture - Final
Blood/Venous No Growth - Final Report
09/15/24 16:30 Urine Culture - Final
Urine NO GROWTH
09/10/24 22:06 Influenza Types A & B (TRISTEN) - Final
Nasal Swab Negative for Influenza A & B, NAAT
Negative results must be combined with clinical observations
and patient history.
Nucleic Acid Amplification test (NAAT)performed on the
[employer] platform.
09/11/24 CT a/p: Distal small bowel obstruction with transition point in the low anterior pelvis.
09/13/24 CXR: Nasogastric tube extends into the stomach. No acute cardiopulmonary process.
09/16/24 CT a/p: Possible developing small bowel obstruction versus small bowel ileus. See above. Progressed. Mild bibasilar consolidation. Probable atelectasis. Developing pneumonia not excluded. New.
09/16/24 ABD XRAY: Mild small bowel dilatation. Improved. Probable small bowel ileus. Postsurgical change. New
[2024-09-23 11:47] LABS: Glucose - Point of Care 231 mg/dl (70-99)
--- NOTE | 2024-09-23 12:13 | W.PN.GS2 ---
Today's Communication / Plan
-
Will advance to a low residue diet.
Protonix for GI prophylaxis.
Recheck hemoglobin this afternoon, if stable okay to resume Eliquis otherwise would hold this evening dose.
Out of bed and ambulate.
Dispo: Recommended for home PT. Anticipate discharge home tomorrow pending hemoglobin and clinical course
Assessment / Plan
-
Assessment: 84F with a history of an open total abdominal hysterectomy for an infected IUD 30 years ago who presented to our hospital on 09/10/2024 with small bowel obstruction that failed nonoperative management now POD#10 s/p lap to open PANCHITO for
internal hernia/SBO (09/13/2024) - doing well, expected postoperative course.
Hemoglobin continues to drift downwards.
Waxing and waning leukocytosis of unclear etiology.
Patient offers no new complaints, passing liquid BMs and flatus.
Will advance to a low residue diet.
Protonix for GI prophylaxis.
Recheck hemoglobin this afternoon, if stable okay to resume Eliquis otherwise would hold this evening dose.
Out of bed and ambulate.
Dispo: Recommended for home PT. Anticipate discharge home tomorrow pending hemoglobin and clinical course
Time Spent
Total Time Spent with Patient (in minutes): 20
Subjective Data
-
Date of Service: September 23, 2024
Interval Events:
No acute events overnight. Slept well. Pain Controlled. Denies Nausea/Vomiting, ++bowel function. Tolerating diet.
Objective Data
-
Intake and Output
09/22/24 09/23/24 09/24/24
06:59 06:59 06:59
Intake Total 2825 / 2825 790 / 790
Balance 2825 / 2825 790 / 790
Intake:
Oral fluids 1480 / 1480 560 / 560
Amount of oral supplement(s) 230 / 230
consumed
IV fluids (Total) 300 / 300
IV piggybacks 210 / 210
TPN/PPN 835 / 835
Other:
Number of approximated MODERATE 5 3
amounts of urine
Number of approximated LARGE 1
amounts of urine
How many times incontinent 1
MODERATE amount urine
Number of unmeasured liquid
stools
Rectum 6
Vital Signs
Temp Pulse Resp BP Pulse Ox
98.4 F 74 18 105/47 96
09/23/24 11:35 09/23/24 11:35 09/23/24 11:35 09/23/24 11:35 09/23/24 11:35
Lab Results
09/23/24 04:04
09/23/24 04:04
Calcium 7.9 mg/dl (8.4-10.2) L 09/23/24 04:04
Phosphorus 3.1 mg/dl (2.5-4.5) 09/19/24 04:36
Magnesium 2.0 mg/dl (1.6-2.3) 09/20/24 04:14
Total Bilirubin 0.5 mg/dl (0.2-1.3) 09/20/24 04:14
AST 21 U/L (14-36) 09/20/24 04:14
ALT 16 U/L (0-35) 09/20/24 04:14
Alkaline Phosphatase 121 U/L (38-126) 09/20/24 04:14
Total Protein 4.9 g/dl (6.3-8.2) L 09/20/24 04:14
Albumin 2.5 g/dl (3.5-5.0) L 09/20/24 04:14
Physical Exam
-
GENERAL/NEURO: Awake, Alert, no distress
CHEST: Unlabored breathing on RA
ABDOMEN: Soft, Non-Tender, mildly distended
--- NOTE | 2024-09-23 12:14 | W.PN.HOSP.TC ---
Addendum entered and electronically signed by Marques Rollins MD 09/23/24 13:45:
sbo s/p anitha, pod 9
-on tpn wean as tolerated
-surgery following
-started on cld
-advance as tolerated
anemia, normocytic, likely realted to periop blood loss
-will monitor
-hold off on starting eliquis at this time
-repeat cbc in the AM
-transfuse if hgb <7
fever x1
-no white count
-resolved with rectal tylenol
-ID consulted
-CTAP ordered but DC'ed by Surgery as not concerned for post op comp at this time as the RLQ tenderness is focal and on going along with fever x1.
iddm c/b hypergglycemia
-hyperglycemia improved with interventions provided yesterday
-there was no concern for dka
-gb 140-180
-cld, advance as tolerated to ccdiet per surgeyr
-long and short acting insulin
-accuchecks
parox afib, back in sr
-on hep gtt
-continue bb
-amio dc'ed
-cardiology following
prolonged qtc
-avoid agents that prolong
volume overload, no hx of heart failure, 2d echo reviewed, without evidence of hf documented
-did recieve ivf on 09/20 for hyperglycemia
-will give additional iv lasix now as there are some crackles in b/l bases and 1-2+ edema in le
-cardiology following
Original Note:
Today's Communication/Plan
-
- follow up with surgery regarding Ct scan
- Trend temp and WBC
- trend the creatinine level
- Trend BMP
- trend glucose
-
Assessment / Plan
Assessment / Plan
New onset Atrial fibrillation with rapid ventricular response:
- Monitor heart rate, currently 74 today
-[id number] course 5
- continue oral beta gil today
-continue oral Eliquis today 5 mg BID
-Continue to follow-up with cardiology
SBO due to internal hernia with a small bowel volvulus status post diagnostic laparoscopy :
-Bowel sounds are present on physical examination, no nausea, no vomiting, patient had some bowel movements since yesterday
- TPN discontinued
-patients diet is advanced to low residue, she is tolerating well
Hyponatremia:
- 134, observe and continue to trend
Acute diarrhea with fever:
- Has resolved
- C diff is negative
- ID thinks diarrhea is due to return of bowel function, and to monitor stool output, trending wbc and temp
- general surgery informed of fever and stated not to worry until fever crosses 101 post op, cancelled CT scan
Hypertriglyceridemia:
- Started on TPN on 09/15, Triglyceride levels up to 438, hold lipids today and give only 3x a week. Non-protein calories in TPN adjusted to not increase dextrose. Protein calories same.
Leukocytosis:
-12.7 and trending up
- repeat cbc
- most likely reactive, continue to monitor
Postoperative hypovolemic shock
- Current blood pressure is 105/47 and controlled
- pulse is 89, O2 sat 96 on room air
- Off levophed
Volume overload due to fluid retention
acute diastolic heart failure due to fluid shift and fluid given in bert-operative period:
- Advised patient to continue using incentive spirometer
- Added an additional 20 mg lasix iv in addition what she is already receiving because of weight gain and cracklesheard on physical examination, first will check creatinine
- Todays weight is which is 70.8 which is 1 kgs weight gain from yesterday,
- Echo shows a ejection fraction of 65-70%,
- creatinine is 0.9, BUN 36
IDDM:
- Glucose level is 148 and trending down
-Insulin glargine dose is now 25 units,insulin aspart is 6 units
- Started on Amaryl
- Will be started on sitagliptin and metformin oral tomm
-c/w ISS
Hld
-Hold until able to tolerate po
Code Status - full code
Anticipated Discharge: Within 24 hours
Subjective/Interval History
-
Date of Service: September 23, 2024
Pts loose bowel movements have subsided.
She also states that she has right upper quadrant discomfort that is still there post surgery day 9.
Objective Data
-
Labs:
Laboratory Results
09/23/24
04:04
WBC 12.7 H
Hgb 7.9 L
Hct 24.0 L
Plt Count 310
Sodium 134 L
Potassium 4.1
Chloride 98
Carbon Dioxide 24
BUN 29 H
Creatinine 0.9
Glucose 148 H
Calcium 7.9 L
Vital Signs:
Vital Signs
Temp Pulse Resp BP Pulse Ox
98.4 F 74 18 105/47 96
09/23/24 11:35 09/23/24 11:35 09/23/24 11:35 09/23/24 11:35 09/23/24 11:35
I&O
09/22/24 09/23/24 09/24/24
06:59 06:59 06:59
Intake Total 2825 / 2825 790 / 790
Balance 2825 / 2825 790 / 790
Physical Exam
-
Respiratory: Crackles and Decreased Breath Sounds
Cardiac: Regular Rhythm, S1/S2 and Murmur (2 out of 6 systolic ejection murmur at the right upper sternal border)
GI: Soft, Nondistended, Normal Bowel Sounds and Tender (in the hypogastric region)
Musculoskeletal: Edema, Right Lower Extrem and Edema, Left Lower Extrem
Skin: Warm and Dry
Neuro: Awake, Alert, Oriented and AO x 3
Data Reviewed
-
Medical Tests (Nuc Med, Echo etc): Image personally visualized and interpreted and Discussed with Physician
Labs: Labs Reviewed by me and Discussed with Physician
[2024-09-23] MEDS: ULTRAM 25 MG PO ×2 (12:28→18:33)
[2024-09-23] MEDS: NOVOLOG FLEXPEN-LOW RESISTANCE 2 UNITS SC ×2 (12:40→17:09)
[2024-09-23] MEDS: NOVOLOG FLEXPEN-MODERATE RESISTANCE SC (12:43)
--- NOTE | 2024-09-23 14:15 | CM ---
Addendum entered by Heaven Lara RN 09/23/24 16:18:
Spoke with the patient at the bedside. IMM signed and placed on chart.
Original Note:
Reviewed the chart notes and spoke with the patient's daughter at the bedside. Family wants patient to discharge to her daughter's home [facility] ([phone]); [address] [id number] Discuss VN agencies, family selected VN.
Referral sent via [facility]. CM continues to be available to patient/family and is monitoring medical plan for needs at discharge.
Plan: Discharge to the daughter's home on VN services.
[2024-09-23 15:39] LABS: % Basophils 0.7 % (0-2); % Immature Granulocytes 5.8 % (0-0.5); % Lymphocytes 12.8 % (20.5-51.1); % Monocytes 9.6 % (1.7-9.3); % Neutrophils 70.1 % (42.2-75.2); Absolute Basophils 0.1 10^3/uL (0-0.2); Absolute Eosinophils 0.1 10^3/uL (0-0.7); Absolute Immature Granulocytes 0.5 10^3/uL (0-0.05); Absolute Lymphocytes 1.2 10^3/uL (1.2-3.4); Absolute Monocytes 0.9 10^3/uL (0.1-0.6); Absolute Neutrophils 6.5 10^3/uL (1.4-6.5); Hematocrit 23.8 % (37.0-47.0); Hemoglobin 7.9 g/dL (12.0-16.0); Mean Corp Hgb Conc. 33.2 g/dL (33.0-37.0); Mean Corpuscular Hgb 29.4 pg (27.0-31.0); Mean Corpuscular Volume 88.5 fL (81.0-99.0); Mean Platelet Volume 10.6 fL (7.4-10.4); Nucleated Red Blood Cells % 0.3 %; Platelet Count 381 10^3/uL (130-400); Red Blood Cell Count 2.69 10^6/uL (4.20-5.40); Red Cell Dist. Width 14.3 % (11.5-14.5); White Blood Cell Count 9.2 10^3/uL (4.8-10.8)
[2024-09-23 15:44] LABS: Blood Urea Nitrogen 28 mg/dl (7-17); Calcium 8.1 mg/dl (8.4-10.2); Carbon Dioxide 28 mmol/L (22-30); Chloride 97 mmol/L (98-107); Estimated Creatinine Clearance 40 ml/min; Glucose 254 mg/dl (70-99); Potassium 4.2 mmol/L (3.5-5.1); Sodium 131 mmol/L (135-145); eGFR > 60.00
[2024-09-23 15:59] LABS: Glucose - Point of Care 234 mg/dl (70-99)
[2024-09-23] MEDS: AMARYL 4 MG PO ×2 (17:09→20:18)
--- NOTE | 2024-09-23 18:34 | W.PN.UPDATE ---
Update Note
Progress Note Update
iddm:
- D/c the sitagliptin, not appropriate drug of choice in someone who has had recent bowel obstruction.
[2024-09-23 21:44] LABS: Glucose - Point of Care 163 mg/dl (70-99)
[2024-09-24] MEDS: ULTRAM 25 MG PO ×3 (00:35→09:50)
[2024-09-24 03:15] VITALS: BP 95/44
[2024-09-24 05:23] LABS: Hematocrit 22.7 % (37.0-47.0); Hemoglobin 7.3 g/dL (12.0-16.0); Mean Corp Hgb Conc. 32.2 g/dL (33.0-37.0); Mean Corpuscular Hgb 29.2 pg (27.0-31.0); Mean Corpuscular Volume 90.8 fL (81.0-99.0); Mean Platelet Volume 10.3 fL (7.4-10.4); Platelet Count 361 10^3/uL (130-400); Red Cell Dist. Width 14.5 % (11.5-14.5); White Blood Cell Count 5.7 10^3/uL (4.8-10.8)
[2024-09-24 05:50] LABS: Blood Urea Nitrogen 24 mg/dl (7-17); Calcium 7.8 mg/dl (8.4-10.2); Carbon Dioxide 29 mmol/L (22-30); Chloride 98 mmol/L (98-107); Estimated Creatinine Clearance 40 ml/min; Glucose 68 mg/dl (70-99); Potassium 3.6 mmol/L (3.5-5.1); Sodium 132 mmol/L (135-145); eGFR > 60.00
[2024-09-24] MEDS: TYLENOL 650 MG PO ×3 (05:58→21:30)
[2024-09-24 06:00] VITALS: BMI 27.4
[2024-09-24 07:19] LABS: Glucose - Point of Care 77 mg/dl (70-99)
[2024-09-24] MEDS: NOVOLOG FLEXPEN-LOW RESISTANCE SC (07:24)
--- NOTE | 2024-09-24 07:43 | PN.DE.MGMTRT ---
Insulin Management
- -
09/24/2024: Diabetes Management F/U:
84 year old Female with PMH: IDDM, HTN, HLD and a complex total abdominal hysterectomy for an infected IUD 50 years ago. Pt presented to the hospital with 2 days of abdominal pain on 09/13, found to have SBO 2/2 adhesions. Now POD#3 S/P DIAG-LAP
converted to EXP-LAP With Extensive PANCHITO for Internal Hernia with SB Volvulus and Acute SBO. 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 A1C 7.7%, Cr 0.9, eGFR>60
Pt awake, alert, sitting up in chair, waiting to go down for X-Ray, daughter- S[facility] at bedside, supportive and involved in discussion about diabetes mgt
09/22 Off TPN. Diet was advanced to low residue yesterday at lunch.
Noted for an episode of Hypoglycemia as low as 68 (V), POC 77 before breakfast
Will reduce Glimepiride to 2 mg daily and Lantus to 20 units. Cont Metformin and Januvia
Discussed with pt and Dtr to closely monitor blood sugar at home and contact PCP if hypoglycemic to adjust medications.
Plan of care discussed with Pt's Nurse
Diabetes History
- -
Type of Diabetes: 2 requiring insulin
Pre-Admission Diabetes Regimen
09/23/24 09/24/24
15:16 04:48
Creatinine 0.9 0.9
Lab Results
Hemoglobin A1c 7.7 % (4.0-5.6) H 09/17/24 04:10
Insulin Pump Settings
IP Diabetes Regimen
09/23/24 09/23/24 09/23/24
08:00 11:46 15:16
Glucose 254 H
POC Glucose 163 H 231 H
09/23/24 09/23/24 09/24/24
15:58 21:42 04:48
Glucose 68 L
POC Glucose 234 H 163 H
09/24/24
07:18
Glucose
POC Glucose 77
Meal type: Lunch
Amount consumed: 75%
Patient Education
[2024-09-24 08:00] VITALS: BP 106/51
[2024-09-24] MEDS: TENORMIN 50 MG PO (08:13)
[2024-09-24] MEDS: GLUCOPHAGE 1000 MG PO ×2 (08:13→16:55)
[2024-09-24] MEDS: LASIX 20 MG IV (08:13)
[2024-09-24] MEDS: AMARYL 2 MG PO ×2 (08:13→16:55)
[2024-09-24] MEDS: PROTONIX IV 40 MG IV (08:14)
[2024-09-24] MEDS: NSS (PRESERVATIVE FREE) 10 ML IV (08:14)
--- NOTE | 2024-09-24 09:06 | CM ---
Patient seen at bedside, no change in discharge plan, awaiting physician to confirm discharge. CM will continue to follow for discharge planning needs.
Plan; home with [facility] to follow.
--- NOTE | 2024-09-24 10:37 | W.PN.GS2 ---
Addendum entered and electronically signed by Antonio Blackwood MD 09/24/24 10:53:
I saw and examined the patient.
The Photographic Enlarger Operator's note was reviewed and I agree with the note with the following changes.
Comment: Clinically well with no complaints, exam benign. Slow Hb drift down now to 7.3. Would hold eliquis and recheck Hb tomorrow.
Original Note:
Today's Communication / Plan
-
Continue LRD
Dispo planning
Assessment / Plan
-
Assessment: 84F with a history of an open total abdominal hysterectomy for an infected IUD 30 years ago who presented to our hospital on 09/10/2024 with small bowel obstruction that failed nonoperative management now POD#11 s/p lap to open PANCHITO for
internal hernia/SBO (09/13/2024)
Tolerating LRD, with good bowel function. Nonbloody bm's.
Hemoglobin with low drift downwards. Do not suspect active bleeding
No leukocytosis or fevers
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
Vitals stable. BP low normal, off antihypertensives
Plan:
Continue LRD
Protonix for GI prophylaxis.
Change analgesics to PO for longer lasting pain control
Okay to resume Eliquis from surgical standpoint
Out of bed and ambulate/PT following
Doing well and nearing readiness for discharge from surgical perspective. Final dispo as per primary team.
Subjective Data
-
Date of Service: September 24, 2024
Patient seen and examined at bedside with Dr. Blackwood. Denies n/v. Tolerating diet. Passing stools and flatus. Does note abdominal pain with activity. Analgesics not lasting very long.
Objective Data
-
Intake and Output
09/23/24 09/24/24 09/25/24
06:59 06:59 06:59
Intake Total 790 / 790 920 / 920
Balance 790 / 790 920 / 920
Intake:
Oral fluids 560 / 560 920 / 920
Amount of oral supplement(s) 230 / 230
consumed
Other:
Number of approximated MODERATE 3 2
amounts of urine
How many times incontinent 1
MODERATE amount urine
Number of unmeasured liquid
stools
Rectum 6
Vital Signs
Temp Pulse Resp BP Pulse Ox
97.9 F 64 18 106/51 96
09/24/24 08:00 09/24/24 08:00 09/24/24 08:00 09/24/24 08:00 09/24/24 08:00
Lab Results
09/24/24 04:48
09/24/24 04:48
Calcium 7.8 mg/dl (8.4-10.2) L 09/24/24 04:48
Phosphorus 3.1 mg/dl (2.5-4.5) 09/19/24 04:36
Magnesium 2.0 mg/dl (1.6-2.3) 09/20/24 04:14
Total Bilirubin 0.5 mg/dl (0.2-1.3) 09/20/24 04:14
AST 21 U/L (14-36) 09/20/24 04:14
ALT 16 U/L (0-35) 09/20/24 04:14
Alkaline Phosphatase 121 U/L (38-126) 09/20/24 04:14
Total Protein 4.9 g/dl (6.3-8.2) L 09/20/24 04:14
Albumin 2.5 g/dl (3.5-5.0) L 09/20/24 04:14
Physical Exam
-
GENERAL/NEURO: Awake, Alert, no distress
CHEST: Unlabored breathing on RA
ABDOMEN: Soft, mild tenderness to lower abdomen. Incision well approximated and healing: tila intact
--- NOTE | 2024-09-24 10:41 | W.PN.ID1 ---
Date of Service
Date of Service: September 24, 2024
Today's Communication
ID will sign off.
Assessment / Plan
# Diarrhea resolved, C. diff neg
# Low-grade temperature x 1, resolved
# Leukocytosis resolved
# SBO due to internal hernia and volvulus status post extensive lysis of adhesion 09/13.
ID will sign off.
# Conditions prior to admission
Diabetes mellitus
Hypertension
Dyslipidemia
History of infected IUD status post complex total abdominal hysterectomy 30 years ago
Appendectomy
Chief Complaint
-: Other (Diarrhea)
Subjective / Review of Systems
No further diarrhea. Abd pain better.
Vital Signs / Physical Exam
Vital Signs
Vital Signs
Temp Pulse Resp BP Pulse Ox
97.9 F 64 18 106/51 96
09/24/24 08:00 09/24/24 08:00 09/24/24 08:00 09/24/24 08:00 09/24/24 08:00
Physical Exam
Constitutional: No Acute Distress and Comfortable
Cardiovascular: Regular Rate and S1/S2
Gastrointestinal: Soft, Non Tender, Non Distended and Normal Bowel Sounds
Extremities: Negative Edema
Neurological: AO x 3
Objective Data
Lab Data
Lab Results
09/24/24 04:48
09/24/24 04:48
ESR 17 mm/hour (0-20) 09/13/24 18:57
PT 14.6 Sec (11.4-14.6) 09/13/24 21:03
INR 1.10 09/13/24 21:03
APTT 47.4 Sec (23.4-35.0) H 09/22/24 12:02
Estimated Creat Clear 40 ml/min 09/24/24 04:48
Lactic Acid 1.2 mmol/L (0.7-2.0) 09/20/24 23:06
Total Bilirubin 0.5 mg/dl (0.2-1.3) 09/20/24 04:14
AST 21 U/L (14-36) 09/20/24 04:14
ALT 16 U/L (0-35) 09/20/24 04:14
Alkaline Phosphatase 121 U/L (38-126) 09/20/24 04:14
Most recent labs reviewed.
Micro Results:
09/20/24 19:45 Blood Culture - Preliminary
Blood/Venous No Growth in 72 hours- Final report to follow
09/20/24 18:52 Blood Culture - Preliminary
Blood/Venous No Growth in 72 hours- Final report to follow
09/23/24 02:10 C. difficile GDH Antigen & Toxins - Final
Feces/Stool Negative for toxigenic C.difficile
09/15/24 16:37 Blood Culture - Final
Blood/Venous No Growth - Final Report
09/15/24 16:30 Urine Culture - Final
Urine NO GROWTH
09/10/24 22:06 Influenza Types A & B (TRISTEN) - Final
Nasal Swab Negative for Influenza A & B, NAAT
Negative results must be combined with clinical observations
and patient history.
Nucleic Acid Amplification test (NAAT)performed on the
[employer] platform.
09/11/24 CT a/p: Distal small bowel obstruction with transition point in the low anterior pelvis.
09/13/24 CXR: Nasogastric tube extends into the stomach. No acute cardiopulmonary process.
09/16/24 CT a/p: Possible developing small bowel obstruction versus small bowel ileus. See above. Progressed. Mild bibasilar consolidation. Probable atelectasis. Developing pneumonia not excluded. New.
09/16/24 ABD XRAY: Mild small bowel dilatation. Improved. Probable small bowel ileus. Postsurgical change. New
--- NOTE | 2024-09-24 11:07 | PN.CDI ---
CDI
- -
CDI:
Physician Documentation Request
Admit Date: 09/11/24 03:11
Dear Doctor Ayo/Resident,
Please review the following and provide your response in the progress notes.
Clinical Indicators:
Pt admitted with Partial SBO 2/2 adhesions s/p Laparotomy with removal of adhesions 09/13 /Developed TYRON and Hypovolemic shock
Documented per 09/23 progress note ,' anemia, normocytic, likely related to periop blood loss will monitor...-repeat cbc in the AM-transfuse if hgb <7..'
09/13/24 09/23/24 09/24/24
08:34 15:16 04:48
Hgb 12.7 7.9 L 7.3 L
Hct 38.2 23.8 L 22.7 L
Based on the above, could you clarify, in your progress note, which of the following is the most likely type of anemia you are evaluating, monitoring and/or treating?
Acute blood loss anemia
Brianne op blood loss only
Other
Use of terms such as suspected, likely, concern for, or probable (associated with a specific diagnosis that is being evaluated, monitored, or treated as if it exists) are acceptable and can be coded in the inpatient setting, when documented at the
time of discharge.
Thank you,
Laurie Olivo RN
CDI Specialist
[place] [facility]
Please use your independent medical judgment in providing your response.
--- NOTE | 2024-09-24 11:18 | PN.CDI ---
Addendum entered and electronically signed by Nikki Alvarez MD 09/27/24 06:13:
SIRS due to a non-infectious source with Acute Organ Dysfunction ( TYRON )
Original Note:
CDI
- -
CDI:
Physician Documentation Request
Admit Date: 09/11/24 03:11
Dear Doctor Antonio,
Please review the following and provide your response in the progress notes.
Clinical Indicators:
Pt admitted with SBO due to internal hernia with a small bowel volvulus status post diagnostic laparoscopy that was converted to exploratory laparotomy with lysis of adhesions by Dr. Fagan on September 13.
Progress note 09/14 , 'Postoperative hypovolemic shock....Acute kidney injury secondary to hypovolemia. Continue with IV fluid....Hyponatremia ...'
Please clarify which most accurately describes the patient:
SIRS due to a non-infectious source with Acute Organ Dysfunction ( TYRON )
SIRS without Acute Organ Dysfunction
TYRON only
Other ( please specify)
Use of terms such as suspected, likely, concern for, or probable (associated with a specific diagnosis that is being evaluated, monitored, or treated as if it exists) are acceptable and can be coded in the inpatient setting, when documented at the
time of discharge.
Thank you,
Laurie Olivo RN
CDI Specialist
[place] [facility]
Please use your independent medical judgment in providing your response.
--- NOTE | 2024-09-24 11:27 | PN.CDI ---
CDI
- -
CDI:
Physician Documentation Request
Admit Date: 09/11/24 03:11
Dear Doctor Ayo/Resident,
Please review the following and provide your response in the progress notes.
Clinical Indicators:
Pt admitted with SBO due to internal hernia with a small bowel volvulus status post diagnostic laparoscopy that was converted to exploratory laparotomy with lysis of adhesions by Dr. Fagan on September 13.
Progress note 09/15-09/18 , ' # Mild acute blood loss anemia Monitor H&H q 12 H while on heparin gtt ...'
Progress note 09/23, ' ...-hold off on starting eliquis at this time....parox afib, back in sr-on hep gtt...'
Given Eliquis o 09/22 now on hold
Please clarify the relationship between these conditions:
Yes, _ABLA__ is related to/associated with/exacerbated by Heparin use__.
No, _ABLA __ is not related to/associated with/exacerbated by Heparin use ___ but it is due to ___. (Please specify)
Unable to determine
Use of terms such as suspected, likely, concern for, or probable (associated with a specific diagnosis that is being evaluated, monitored, or treated as if it exists) are acceptable and can be coded in the inpatient setting, when documented at the
time of discharge.
Thank you,
Laurie Olivo RN
CDI Specialist
[place] [facility]
Please use your independent medical judgment in providing your response.
--- NOTE | 2024-09-24 11:59 | W.PN.CARDCBS ---
Today's Communication / Plan
-
Hold anticoagulation and monitor hemoglobin trends; defer workup and management to general surgery
Outpatient cardiac follow-up to be arranged
Will sign off, recall if needed
Impression / Plan
-
.
Family Physician: Natasha Bojorquez
Cardiology: None prior to admission, initially seen by Dr Barger
Impression:
Presented 09/11/2024 with abdominal pain, fever, leukocytosis
Acute SBO likely from prior adhesions status post diagnostic laparoscopy converted to ex lap with lysis of adhesions 09/13/2024
Leukopenia
TYRON, creatinine 1.2
Metabolic acidosis, mild
Hyperglycemia
Hypocalcemia
Atrial fibrillation with rapid ventricular response, new diagnosis, spontaneously converted to sinus
Abnormal troponin
Type 2 diabetes, insulin dependent
Hypertension
Hyperlipidemia
Dysphagia from Schatzki's ring status post esophageal dilation
Colon polyps
Hysterectomy
Echo 09/15/2024: Small left ventricle, mild LVH, mid cavity gradient, EF 65-70%, rhythm is A-fib, normal RV, trace MR, aortic sclerosis/mild stenosis peak gradient 17 and 9, valve area 1.8 cm2. Pulmonary artery pressure 38. Small pericardial
effusion
Plan:
She continues to improve postop day 6 status post exploratory laparotomy with lysis of adhesions for small bowel obstruction and internal hernia with small bowel volvulus 09/13/24.
-Slow drift in hemoglobin; management per general surgery
-Remains hemodynamically stable in sinus rhythm
History of atrial fibrillation currently in sinus rhythm
-Remains in sinus rhythm. Discussed arrhythmia, pathophysiology, management options and stroke risk with patient and family members.
-[id number] score 6; ideally would anticoagulate given high risk. Eliquis had been started but now on hold with hemoglobin drifting down now 7.3
-When able from a surgical standpoint and hemoglobin is stable would start anticoagulation. This may need to be done as an outpatient.
-Continue atenolol
-Outpatient cardiac follow-up arranged
Prolonged QTc on IV amiodarone with improvement. No further amiodarone planned. Avoid QT prolonging agents.
-EKG 09/20/2024 with QTc 411 ms
Volume overload following acute small bowel obstruction requiring surgery/Postoperative shock s/p Volume resuscitation Briefly requiring Levophed/n.p.o. status
-proBNP initially 2320 on September 15, 2024 and wing to [id number]
-2D echocardiogram with hyperdynamic LV systolic function with mid cavitary gradient and EF 65-70% in atrial fibrillation. Mild aortic stenosis. Trace mitral regurgitation; mild tricuspid regurgitation. Trivial pericardial effusion
-Volume status appears better with IV Lasix
-Will discontinue hydrochlorothiazide and start Lasix 20 mg orally daily
History of hypertension with lower blood pressure trends postop
-Would continue to hold valsartan hydrochlorothiazide.
Abnormal cardiac troponin, 0.059 on 09/13/2024 and relatively flat
-Likely represents nonischemic myocardial injury
-Consider eventual outpatient stress test once she has recovered
-Resume pravastatin at time of discharge.
Mild aortic stenosis on echocardiogram 09/15/2024�outpatient surveillance monitoring
Discussed with patient/family at bedside
Outpatient cardiac follow-up arranged
Will sign off, recall if needed
HPI 09/15/2024:
Patient is an 84-year-old female with past medical history significant for insulin-dependent diabetes, hypertension, hyperlipidemia who presents to the emergent department 09/11/2024 with 2 days of abdominal pain and was found to have low-grade
fever and leukocytosis. CT of the abdomen pelvis showed acute small bowel obstruction in the proximal ileum at the pelvic junction. Underwent diag lap with conversion to ex lap and PANCHITO 09/13/24. In the evening of 09/14/2024 patient developed
atrial fibrillation with rapid ventricular response. Patient was provided IV Lopressor with improvement of heart rates and started on IV Cardizem and heparin drip. Patient hypotensive requiring IV pressors with Levophed.
Patient's son at bedside. He helps provide history. Patient has no prior cardiac history and has never seen a photo technician. Patient notes some mild intermittent palpitations but denies chest pain or shortness of breath
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
Subjective
Date of Service: September 24, 2024
Patient seen and examined sitting out of bed to chair. Discussed care plan with daughter at bedside as well as another daughter on the phone. No chest pain or pressure. No palpitations. No shortness of breath or dizziness. Denies worsening
abdominal pain. No nausea or vomiting. Denies gross bleeding.
Objective
Labs:
09/24/24 04:48
09/24/24 04:48
Labs
Hgb 7.3 g/dL (12.0-16.0) L 09/24/24 04:48
Hct 22.7 % (37.0-47.0) L 09/24/24 04:48
Plt Count 361 10^3/uL (130-400) 09/24/24 04:48
PT 14.6 Sec (11.4-14.6) 09/13/24 21:03
INR 1.10 09/13/24 21:03
APTT 47.4 Sec (23.4-35.0) H 09/22/24 12:02
Sodium 132 mmol/L (135-145) L 09/24/24 04:48
Potassium 3.6 mmol/L (3.5-5.1) 09/24/24 04:48
BUN 24 mg/dl (7-17) H 09/24/24 04:48
Creatinine 0.9 mg/dL (0.6-1.0) 09/24/24 04:48
Glucose 68 mg/dl (70-99) L 09/24/24 04:48
Vital Signs and I&O:
Vital Signs
Temp Pulse Resp BP Pulse Ox
97.9 F 64 18 106/51 96
09/24/24 08:00 09/24/24 08:00 09/24/24 08:00 09/24/24 08:00 09/24/24 08:00
Vital Signs
Temp Pulse Resp BP Pulse Ox
97.9 F 64 18 106/51 96
09/24/24 08:00 09/24/24 08:00 09/24/24 08:00 09/24/24 08:00 09/24/24 08:00
Intake & Output
09/22/24 09/23/24 09/24/24 09/25/24
06:59 06:59 06:59 06:59
Intake Total 2825 / 2825 790 / 790 920 / 920
Balance 2825 / 2825 790 / 790 920 / 920
Physical Exam
Physical Exam
General: No acute distress, AAOX3
Heart: Regular, positive S1/S2, 2/6 ELMA
Lungs: CTA b/l, negative wheezes/rales/rhonchi
Abd: Positive BS, NT/ND, neg rebound/rigidity/guarding
Ext: +1 bilateral pedal edema
Neuro: nonfocal
[2024-09-24 12:00] VITALS: BP 110/57
[2024-09-24 12:18] LABS: Glucose - Point of Care 211 mg/dl (70-99)
--- NOTE | 2024-09-24 12:26 | W.PN.HOSP.TC ---
Addendum entered and electronically signed by Marques Rollins MD 09/24/24 16:00:
sbo s/p anitha, pod 9
-on tpn wean as tolerated
-surgery following
-started on cld
-advance as tolerated
anemia, normocytic, likely realted to periop blood loss
-will monitor
-hold eliquis, resume in the AM if hgb is stable
-repeat cbc in the AM
-transfuse if hgb <7
-Check CTAP (09/24)
fever x1
-no white count
-resolved with rectal tylenol
-ID consulted
-CTAP ordered but DC'ed by Surgery as not concerned for post op comp at this time as the RLQ tenderness is focal and on going along with fever x1.
iddm c/b hypergglycemia
-hyperglycemia improved with interventions provided yesterday
-there was no concern for dka
-gb 140-180
-cld, advance as tolerated to ccdiet per surgeyr
-long and short acting insulin
-accuchecks
parox afib, back in sr
-on hep gtt
-continue bb
-amio dc'ed
-cardiology following
prolonged qtc
-avoid agents that prolong
volume overload, no hx of heart failure, 2d echo reviewed, without evidence of hf documented
-did recieve ivf on 09/20 for hyperglycemia
-will give additional iv lasix now as there are some crackles in b/l bases and 1-2+ edema in le
-cardiology following
Original Note:
Today's Communication/Plan
-
- check CT scan
- Follow up surgery
Assessment / Plan
Assessment / Plan
New onset Atrial fibrillation with rapid ventricular response:
- Eliquis held
- Monitor heart rate, currently 64 today
-[id number] course 5
- continue oral beta gil today
-Continue to follow-up with cardiology
Anemia:
- Eliquis is held since hgb is low,, Hgb will be rechecked tomm, in place of hgb SCD ordered to prevent DVT
- Hgb is 7.3 today and trending down
- Ct abdomen/pelvis to assess for a hematoma/ active bleed
SBO due to internal hernia with a small bowel volvulus status post diagnostic laparoscopy :
-Bowel sounds are present on physical examination, no nausea, no vomiting, patient had some bowel movements since yesterday
-patients diet is advanced to low residue, she is tolerating well
Hyponatremia:
- 132 and trending down, observe and continue to trend
Acute diarrhea with fever:
- Has resolved
- C diff is negative
Hypertriglyceridemia:
- Started on TPN on 09/15, Triglyceride levels up to 438, hold lipids today and give only 3x a week. Non-protein calories in TPN adjusted to not increase dextrose. Protein calories same.
Leukocytosis:
-12.7 and trending up
- repeat cbc
- most likely reactive, continue to monitor
Postoperative hypovolemic shock
- Current blood pressure is 105/47 and controlled
- pulse is 89, O2 sat 96 on room air
- Off levophed
Volume overload due to fluid retention
acute diastolic heart failure due to fluid shift and fluid given in bert-operative period:
- Advised patient to continue using incentive spirometer
- Added an additional 20 mg lasix iv in addition what she is already receiving because of weight gain and cracklesheard on physical examination, first will check creatinine
- Todays weight is which is 70.8 which is 1 kgs weight gain from yesterday,
- Echo shows a ejection fraction of 65-70%,
- creatinine is 0.9, BUN 36
IDDM:
- Glucose level is 148 and trending down
-Insulin glargine dose is now 25 units,insulin aspart is 6 units
- Started on Amaryl
- Will be started on sitagliptin and metformin oral tomm
-c/w ISS
Hld
-Hold until able to tolerate po
Code Status - full code
Anticipated Discharge: Within 24 hours
Subjective/Interval History
-
Date of Service: September 24, 2024
Pt is still having lower abdominal discomfort.
Objective Data
-
Labs:
Laboratory Results
09/24/24
04:48
WBC 5.7
Hgb 7.3 L
Hct 22.7 L
Plt Count 361
Sodium 132 L
Potassium 3.6
Chloride 98
Carbon Dioxide 29
BUN 24 H
Creatinine 0.9
Glucose 68 L
Calcium 7.8 L
Vital Signs:
Vital Signs
Temp Pulse Resp BP Pulse Ox
97.9 F 64 18 106/51 96
09/24/24 08:00 09/24/24 08:00 09/24/24 08:00 09/24/24 08:00 09/24/24 08:00
I&O
09/23/24 09/24/24 09/25/24
06:59 06:59 06:59
Intake Total 790 / 790 920 / 920
Balance 790 / 790 920 / 920
Review of Systems
-
History Source: Patient
Constitutional: Denies Fever or Chills
EENT: Denies Blurry Vision
Respiratory: Denies Cough or Trouble Breathing
Cardiac: Denies Chest Pain, Diaphoresis, Palpitations, Syncope, PND or Orthopnea
Abdomen/GI: Reports Abdominal Pain (Right lower quadrant) and Diarrhea; Denies Nausea, Vomiting or Constipated
Genitourinary: Denies Dysuria
Musculoskeletal: Denies Joint Pain
Neuro: Denies Headache, Weakness or Numbness
Physical Exam
-
Respiratory: Crackles and Decreased Breath Sounds
Cardiac: Regular Rhythm, S1/S2 and Murmur (2 out of 6 systolic ejection murmur at the right upper sternal border)
GI: Soft, Nondistended, Normal Bowel Sounds and Tender (in the hypogastric region)
Musculoskeletal: Edema, Right Lower Extrem and Edema, Left Lower Extrem
Skin: Warm and Dry
Neuro: Awake, Alert, Oriented and AO x 3
Data Reviewed
-
Medical Tests (Nuc Med, Echo etc): Image personally visualized and interpreted and Discussed with Physician
Labs: Labs Reviewed by me and Discussed with Physician
[2024-09-24] MEDS: NOVOLOG FLEXPEN-LOW RESISTANCE 2 UNITS SC (13:12)
[2024-09-24] MEDS: ROXICODONE 5 MG PO (14:00)
[2024-09-24 16:00] VITALS: BP 100/57
--- NOTE | 2024-09-24 16:16 | W.PN.UPDATE ---
Update Note
Progress Note Update
CDI inquiry
anemia, normocytic, likely realted to periop blood loss:
- Unable to determine if acute blood loss anemia is related to/associated with/exacerbated by Heparin use
-will monitor
-hold eliquis, resume in the AM if hgb is stable
-repeat cbc in the AM
-transfuse if hgb <7
-Check CTAP (09/24)
[2024-09-24] MEDS: COMPAZINE 10 MG IV (16:18)
[2024-09-24 16:26] LABS: Glucose - Point of Care 167 mg/dl (70-99)
[2024-09-24] MEDS: NOVOLOG FLEXPEN-LOW RESISTANCE 1 UNITS SC (16:56)
[2024-09-24 21:47] LABS: Glucose - Point of Care 190 mg/dl (70-99)
[2024-09-24] MEDS: LANTUS 0.2 UNITS SC (21:59)
[2024-09-25 06:00] VITALS: BMI 27.4
[2024-09-25 07:03] VITALS: BMI 27.4
[2024-09-25 07:25] VITALS: BP 126/51
[2024-09-25 07:28] LABS: Blood Urea Nitrogen 21 mg/dl (7-17); Carbon Dioxide 30 mmol/L (22-30); Chloride 97 mmol/L (98-107); Estimated Creatinine Clearance 44 ml/min; Glucose 66 mg/dl (70-99); Potassium 3.9 mmol/L (3.5-5.1); Sodium 134 mmol/L (135-145); eGFR > 60.00
[2024-09-25 07:41] LABS: Hematocrit 25.8 % (37.0-47.0); Hemoglobin 8.3 g/dL (12.0-16.0); Mean Corp Hgb Conc. 32.2 g/dL (33.0-37.0); Mean Corpuscular Hgb 29.5 pg (27.0-31.0); Mean Corpuscular Volume 91.8 fL (81.0-99.0); Mean Platelet Volume 10.2 fL (7.4-10.4); Platelet Count 499 10^3/uL (130-400); Red Blood Cell Count 2.81 10^6/uL (4.20-5.40); Red Cell Dist. Width 14.7 % (11.5-14.5); White Blood Cell Count 6.9 10^3/uL (4.8-10.8)
[2024-09-25 08:11] LABS: Glucose - Point of Care 79 mg/dl (70-99)
[2024-09-25] MEDS: NOVOLOG FLEXPEN-LOW RESISTANCE SC (08:47)
[2024-09-25] MEDS: TENORMIN 50 MG PO (08:47)
[2024-09-25] MEDS: LASIX 20 MG PO (08:48)
[2024-09-25] MEDS: PROTONIX IV 40 MG IV (08:48)
[2024-09-25] MEDS: GLUCOPHAGE 1000 MG PO (08:48)
[2024-09-25] MEDS: AMARYL 2 MG PO (08:48)
[2024-09-25] MEDS: NSS (PRESERVATIVE FREE) 10 ML IV (08:48)
[2024-09-25] MEDS: ULTRAM 25 MG PO (08:54)
--- NOTE | 2024-09-25 09:34 | W.PN.UPDATE ---
Update Note
Progress Note Update
Reviewed chart, labs and recent CT scan. Hemoglobin stable and CT abdomen /pelvis did not show anything acute. Will plan to repeat labs in 3 days and if hemoglobin stable and okay with general surgery will have her start Eliquis 5 mg twice daily.
[2024-09-25 10:52] VITALS: BP 109/47
--- NOTE | 2024-09-25 11:43 | W.PN.HOSP.TC ---
Today's Communication/Plan
-
dc home
Assessment / Plan
Assessment / Plan
sbo s/p anitha, pod 9
-on tpn wean as tolerated
-surgery following
-started on cld
-advance as tolerated
anemia, normocytic, likely realted to periop blood loss
-will monitor
-hold eliquis, repeat cbc in 3days if hgb stbale then can resume if pcp/cardiology comfortable resuming
-repeat cbc in the AM
-transfuse if hgb <7
-Check CTAP (09/24)
fever x1
-no white count
-resolved with rectal tylenol
-ID consulted
-CTAP ordered but DC'ed by Surgery as not concerned for post op comp at this time as the RLQ tenderness is focal and on going along with fever x1.
iddm c/b hypergglycemia
-hyperglycemia improved with interventions provided yesterday
-there was no concern for dka
-gb 140-180
-cld, advance as tolerated to ccdiet per surgeyr
-long and short acting insulin
-accuchecks
parox afib, back in sr
-on eliquis. hold. repeat cbc in 3days. pcp/cards to resume as outpatient if hgb stable
-continue bb
-amio dc'ed
-cardiology following
prolonged qtc
-avoid agents that prolong
volume overload, no hx of heart failure, 2d echo reviewed, without evidence of hf documented
-did recieve ivf on 09/20 for hyperglycemia
-will give additional iv lasix now as there are some crackles in b/l bases and 1-2+ edema in le
-cardiology following
DC home
Anticipated Discharge: Today
Subjective/Interval History
-
Date of Service: September 25, 2024
seen and examined,
toelrating diet well
no new complaints
moving bowels
no bleeding notes
no acute overnight events
daughter at bedside
asked to review use incentive tracey
Objective Data
-
Labs:
Laboratory Results
09/25/24
06:18
WBC 6.9
Hgb 8.3 L
Hct 25.8 L
Plt Count 499 H D
Sodium 134 L
Potassium 3.9
Chloride 97 L
Carbon Dioxide 30
BUN 21 H
Creatinine 0.8
Glucose 66 L
Calcium 8.0 L
Vital Signs:
Vital Signs
Temp Pulse Resp BP Pulse Ox
98.3 F 68 16 109/47 96
09/25/24 10:52 09/25/24 10:52 09/25/24 10:52 09/25/24 10:52 09/25/24 10:52
I&O
09/24/24 09/25/24 09/26/24
06:59 06:59 06:59
Intake Total 920 / 920 600 / 600
Balance 920 / 920 600 / 600
--- NOTE | 2024-09-25 12:04 | W.PN.GS2 ---
Today's Communication / Plan
-
dispo planning
Assessment / Plan
-
Assessment: 84F with a history of an open total abdominal hysterectomy for an infected IUD 30 years ago who presented to our hospital on 09/10/2024 with small bowel obstruction that failed nonoperative management now POD#12 s/p lap to open PANCHITO for
internal hernia/SBO (09/13/2024)
Tolerating LRD, with good bowel function. Nonbloody bm's.
H/H stable
No leukocytosis or fevers
AFVSS
Plan:
Continue LRD
Protonix for GI prophylaxis.
Continued on PO analgesics
Okay to resume Eliquis from surgical standpoint
Ok for discharge from surgical standpoint
Subjective Data
-
Date of Service: September 25, 2024
Patient seen and examined at bedside with Dr. Blackwood around 0845 this am. passing flatus/stools and tolerating diet. denies pain.
Objective Data
-
Intake and Output
09/24/24 09/25/24 09/26/24
06:59 06:59 06:59
Intake Total 920 / 920 600 / 600
Balance 920 / 920 600 / 600
Intake:
Oral fluids 920 / 920 600 / 600
Other:
Number of approximated MODERATE 2 2 1
amounts of urine
Vital Signs
Temp Pulse Resp BP Pulse Ox
98.3 F 68 16 109/47 96
09/25/24 10:52 09/25/24 10:52 09/25/24 10:52 09/25/24 10:52 09/25/24 10:52
Lab Results
09/25/24 06:18
09/25/24 06:18
Calcium 8.0 mg/dl (8.4-10.2) L 09/25/24 06:18
Phosphorus 3.1 mg/dl (2.5-4.5) 09/19/24 04:36
Magnesium 2.0 mg/dl (1.6-2.3) 09/20/24 04:14
Total Bilirubin 0.5 mg/dl (0.2-1.3) 09/20/24 04:14
AST 21 U/L (14-36) 09/20/24 04:14
ALT 16 U/L (0-35) 09/20/24 04:14
Alkaline Phosphatase 121 U/L (38-126) 09/20/24 04:14
Total Protein 4.9 g/dl (6.3-8.2) L 09/20/24 04:14
Albumin 2.5 g/dl (3.5-5.0) L 09/20/24 04:14
Physical Exam
-
GENERAL/NEURO: Awake, Alert, no distress
CHEST: Unlabored breathing on RA
ABDOMEN: Soft, NT, ND. Incision well approximated and healing: tila intact
--- NOTE | 2024-09-25 12:27 | W.DCSUMMARY ---
Discharge Summary
Discharge Data
Date of Admission: 09/11/24
Date of Discharge: 09/25/24
-
Pending Results: No
Hospital Course
84F hx of insulin-dependent diabetes, hypertension, hyperlipidemia who presents to the emergent department with 2 days of abdominal pain. CT of the abdomen pelvis which showed acute small bowel obstruction in the proximal ileum at the pelvic
junction.
Evaluated by surgery went for diagnostic laparoscopy converted to ex lap with lysis of adhesions 09/13/2024. Post op developed ileus, required NGT and started on TPN. Eventualy NGT dc'ed, started on a diet and tpn went off.
Post op recovery was further complicated by cardiac issues such as hypotension, volume overload and atrial fibrillation.
Hypotension required brief nee for pressor support and was adquetly volume resuscitated. But then became volume overload and required lasix once she cam off of pressors. 2d echocardiogram was completed as she had a bnp of 2320, 2d echo showed with
hyperdynamic LV systolic function with mid cavitary gradient and EF 65-70% in atrial fibrillation. Mild aortic stenosis. Trace mitral regurgitation; mild tricuspid regurgitation. Trivial pericardial effusion. Unfortunatly, she developed
paroxysmal atrial fibrillation that was treated with intravenous bb's and hep gtt as she had a high chadsvasc2 score. Eventually able to transition to oral betablocker and eliquis. In terms of eliquis this was held there was noted anemia that was
downtrending. On the day of discharge though hgb was slightly better. Cardiology was okay with holding eliquis, repeating cbc as an outpatient with PCP and cardiology follow up.
More than 30 minutes spent in discharge including
Final examination of the patient
Summarizing hospital stay
Instructions for continuing care to all relevant caregivers
Preparation of discharge records, prescriptions, and referral forms
Total time spent (in minutes): 33mins
Discharge Plan
-
Patient Disposition: Home with Home Care
Discharge Diagnosis/Procedures: small bowel obstruction, normocytic anemia, paroxysmal atrial fibrillation, insulin dependent diabetes mellitus, prolonged Qtc interval, volume overload due to fluid retention
Condition: Fair
Diet: Low Residue
Activity: As tolerated
Driving Restrictions: As prior to admission
Bathing Restrictions: None
Blood Work: CBC in 3days
Other Services: VN
Specialty Instructions: Weigh Daily- Call MD for wt gain/loss 3 lbs overnight/5 lbs in 1 week
Activity Restrictions/Additional Instructions:
Follow up CBC and BMP in 3 days with PCP.
Referrals:
Katina Garcia PA-C [Specified Professional Personl] - 10/15/24 1:20 pm (You have a cardiology follow-up appointment at the [place] office. Please call with questions)
Natasha Bojorquez MD [Family Provider] - in less than 1 week
Todd Fagan MD [Active] - in one to two weeks
Additional Discharge Medication Instructions: DO NOT TAKE, Until Seen by Outpatient provider after they have reviewed CBC to ensure blood count is stable. CBC script provided to repeat in 3days and then see PCP/Cardiology and discuss resuming
Eliquis
-Eliquis 5mg BID
stop valsartan/HCTZ.
please keep a blood pressure log, check blood pressure twice a day and review with PCP
Prescriptions:
New
Eliquis 5 mg Tablet
5 mg PO BID Qty: 30 0RF
acetaminophen 325 mg Tablet
650 mg PO Q6HPRN PRN (Reason: mild pain/ fever>100.5F) Qty: 30 0RF
metformin 1,000 mg Tablet
1,000 mg PO BID@0800,1700 Qty: 30 0RF
furosemide 20 mg Tablet
20 mg PO DAILY Qty: 20 0RF
Continued
aspirin 81 mg Tablet
81 mg PO DAILY
atenolol 50 mg Tablet
50 mg PO DAILY
insulin glargine 100 unit/mL Cartridge
26 - 28 unit SC DAILY
pravastatin 80 mg Tablet
80 mg PO QPM Qty: 30 0RF
Discontinued
glimepiride 4 mg Tablet
4 mg PO BID@
Janumet 50-1,000 mg Tablet
1 tab PO BID@
valsartan-hydrochlorothiazide 320-12.5 mg Tablet
1 tab PO DAILY
Discharge Orders:
Discharge Patient (As Directed); Ordered 09/25/24
Ordered By: Marques Rollins
Discharge Date and Time
Discharge Date/Time: 09/25/24 11:28
Print Language: [place] CITIZ[place]
--- NOTE | 2024-09-25 14:12 | CM ---
Pt for discharge today
Met with pt and daughter
Daughter to transport home
[facility] to follow at D/c
Discussed IMM
Plan 0 home with [facility]
== END 2024-09-25 11:28 | disposition home health service (06) | DRG 335 ==
LOC: 2 SOUTH 03:11
PROVIDERS: Emergency Medicine; Internal Medicine; Internal Medicine Cardiovascular Disease; Nuclear Medicine Nuclear Cardiology; Nurse Practitioner Family; Nurse Practitioner Primary Care; Registered Nurse; Student in an Organized Health Care Education/Training Program; Surgery; ADMITTING PHYSICIAN Internal Medicine; ATTENDING PHYSICIAN Hospitalist; EMERGENCY PHYSICIAN Student in an Organized Health Care Education/Training Program; FAMILY PHYSICIAN Internal Medicine; OTHER PHYSICIAN Internal Medicine; OTHER PHYSICIAN Internal Medicine Cardiovascular Disease; OTHER PHYSICIAN Internal Medicine Infectious Disease; OTHER PHYSICIAN Surgery
PROC: 0DNW0ZZ Release Peritoneum, Open Approach (ICD-10-PCS; 2024-09-13)
PROC: 0DN80ZZ Release Small Intestine, Open Approach (ICD-10-PCS; 2024-09-13)
PROC: 3E0436Z Introduction of Nutritional Substance into Central Vein, Percutaneous Approach (ICD-10-PCS; 2024-09-14)
PROC: 02HV33Z Insertion of Infusion Device into Superior Vena Cava, Percutaneous Approach (ICD-10-PCS; 2024-09-14)
DX: K45.0 Other specified abdominal hernia with obstruction, without gangrene (principal); I50.31 Acute diastolic (congestive) heart failure; T81.19XA Other postprocedural shock, initial encounter; R65.11 Systemic inflammatory response syndrome (SIRS) of non-infectious origin with acute organ dysfunction; E87.1 Hypo-osmolality and hyponatremia; E87.20 Acidosis, unspecified; N17.9 Acute kidney failure, unspecified; K56.51 Intestinal adhesions [bands], with partial obstruction; K56.7 Ileus, unspecified; E78.00 Pure hypercholesterolemia, unspecified; E86.0 Dehydration; Z66 Do not resuscitate; E11.65 Type 2 diabetes mellitus with hyperglycemia; I48.0 Paroxysmal atrial fibrillation; E83.51 Hypocalcemia; Y83.8 Other surgical procedures as the cause of abnormal reaction of the patient, or of later complication, without mention of misadventure at the time of the procedure; E83.42 Hypomagnesemia; Z53.31 Laparoscopic surgical procedure converted to open procedure; R19.7 Diarrhea, unspecified; Z11.52 Encounter for screening for COVID-19; I35.0 Nonrheumatic aortic (valve) stenosis; I11.0 Hypertensive heart disease with heart failure; Z79.4 Long term (current) use of insulin; Z79.82 Long term (current) use of aspirin; Z79.899 Other long term (current) drug therapy; Z90.710 Acquired absence of both cervix and uterus
CPT/HCPCS: 71045; 74018; 74019; 74176; 74177; 80048; 80053; 81003; 81015; 82010; 82805; 82947; 82962; 83036; 83605; 83690; 83735; 83880; 84100; 84145; 84443; 84450; 84460; 84478; 84484; 85025; 85027; 85610; 85652; 85730; 86850; 86900; 86901; 87040; 87086; 87324; 87449; 87502; 87811; 93005; 93306; 96360; 96361; 97116; 97163; 97167; 97530; 97535; 99285; C1776; J1160; Q9967

== ENCOUNTER 2024-10-05 09:47 | Emergency (ER) | payer OTHER, SELFPAY ==
[2024-10-05] VITALS (8 sets, daily range): BP systolic 110–142; BP diastolic 57–92
--- NOTE | 2024-10-05 11:07 | ED.GENMED ---
History of Present Illness
<Jammie Bowen PA-C - Last Filed: 10/05/24 18:10>
General
Chief Complaint: Skin Problem
Source: patient
Exam Limitations: none
Time Seen by Provider: 10/05/24 11:07
Nursing documentation reviewed up to this point in time: agreed with
History of Present Illness
History of Present Illness:
84-year-old female with a past medical history of hypertension, hyperlipidemia, insulin-dependent diabetes presents to the emergency department today concerns of redness and swelling from her incision site. Patient reports that she had surgery last
month for a small bowel resection, she had a lysis of adhesions. She reports that the surgery was converted to open procedure. She started to develop lower abdominal pain 2 days ago and states that her home nurse who was there today states that she
noted the skin was red and so the nurse took a picture and sent it to her surgeon who recommended ER evaluation for CT scan and labwork. Patient denies nausea, vomiting, fevers, chills, dizziness, lightheadedness, diarrhea, constipation.
Review of Systems
<Jammie Bowen PA-C - Last Filed: 10/05/24 18:10>
Review of Systems
All Other Systems: ROS reviewed and negative except as documented in HPI and ROS
Phy Exam
<Jammie Bowen PA-C - Last Filed: 10/05/24 18:10>
Physical Exam
Physical Exam:
General: Patient is well appearing and in no acute distress; non-toxic
Skin: Area of erythema and palpable area of fluctuance noted to the bottom of the midline abdominal incision site with minimal purulent drainage
Head: Normocephalic, atraumatic
Eyes: Sclera non-icteric. EOMs intact.
Cardiac: Regular rate and rhythm no murmurs
Peripheral Vascular: No lower extremity swelling or edema
Pulm: Normal respiratory effort, no wheezes, rales, or rhonchi
Abdomen: Bilateral lower abdominal tenderness to palpation
Neuro: CN II-XII intact, no focal neurologic deficits.
Psychiatric: Appropriate mood and affect.
Course
<Jammie Bowen PA-C - Last Filed: 10/05/24 18:10>
Orders/Labs/Results
Orders:
Orders
10/05/24 11:20
CT Abd/pelvis W Iv Cont Urgent
Comment:
Reason For Exam: diffuse lower abdominal pain, redness and swelling
IV Insert/Care/Rem.- Treatment PRN
10/05/24 12:20
Complete Blood Count/With Diff Urgent
Comprehensive Metabolic Panel Urgent
Wound Culture [Wound/Abscess/Other Culture] Urgent
MATTIE Source: Abdomen
Specimen Description:
Date Specimen was Collected: 10/05/24
Time Specimen was Collected: 12:18
10/05/24 15:09
Consult Surgery [SURGICAL CONSULT] Urgent
Consulting Provider: Todd Fagan
Was physician already notified: Yes
10/05/24 16:36
Morphine Sulfate 2 mg IV NOW STA
Abnormal Lab Results
10/05/24
12:20
RBC 3.16 L 10^6/uL
(4.20-5.40)
Hgb 9.2 L g/dL
(12.0-16.0)
Hct 28.9 L %
(37.0-47.0)
MCHC 31.8 L g/dL
(33.0-37.0)
RDW 14.6 H %
(11.5-14.5)
Abs Immat Gran (auto) 0.1 H 10^3/uL
(0-0.05)
Immature Gran % 1.3 H %
(0-0.5)
Lymphocytes % 20.2 L %
(20.5-51.1)
Sodium 133 L mmol/L
(135-145)
Chloride 94 L mmol/L
(98-107)
Carbon Dioxide 33 H mmol/L
(22-30)
Glucose 112 H mg/dl
(70-99)
Total Protein 5.7 L g/dl
(6.3-8.2)
Albumin 2.9 L g/dl
(3.5-5.0)
10/05/24 12:20
10/05/24 12:20
Vital Signs
Initial and Last Documented VS:
Initial Vital Signs
Temp Pulse Resp BP Pulse Ox
99 F 81 16 123/57 98
10/05/24 09:51 10/05/24 09:51 10/05/24 09:51 10/05/24 09:51 10/05/24 09:51
Last Documented Vital Signs
Temp Pulse Resp BP Pulse Ox
99 F 76 15 122/92 98
10/05/24 09:51 10/05/24 12:15 10/05/24 12:15 10/05/24 12:11 10/05/24 09:51
<Jesus Hooper, - Last Filed: 10/05/24 11:42>
Orders/Labs/Results
Orders:
Orders
10/05/24 11:20
CT Abd/pelvis W Iv Cont Urgent
Comment:
Reason For Exam: diffuse lower abdominal pain, redness and swelling
IV Insert/Care/Rem.- Treatment PRN
10/05/24 12:20
Complete Blood Count/With Diff Urgent
Comprehensive Metabolic Panel Urgent
Wound Culture [Wound/Abscess/Other Culture] Urgent
MATTIE Source: Abdomen
Specimen Description:
Date Specimen was Collected: 10/05/24
Time Specimen was Collected: 12:18
10/05/24 15:09
Consult Surgery [SURGICAL CONSULT] Urgent
Consulting Provider: Todd Fagan
Was physician already notified: Yes
10/05/24 16:36
Morphine Sulfate 2 mg IV NOW STA
Abnormal Lab Results
10/05/24
12:20
RBC 3.16 L 10^6/uL
(4.20-5.40)
Hgb 9.2 L g/dL
(12.0-16.0)
Hct 28.9 L %
(37.0-47.0)
MCHC 31.8 L g/dL
(33.0-37.0)
RDW 14.6 H %
(11.5-14.5)
Abs Immat Gran (auto) 0.1 H 10^3/uL
(0-0.05)
Immature Gran % 1.3 H %
(0-0.5)
Lymphocytes % 20.2 L %
(20.5-51.1)
Sodium 133 L mmol/L
(135-145)
Chloride 94 L mmol/L
(98-107)
Carbon Dioxide 33 H mmol/L
(22-30)
Glucose 112 H mg/dl
(70-99)
Total Protein 5.7 L g/dl
(6.3-8.2)
Albumin 2.9 L g/dl
(3.5-5.0)
10/05/24 12:20
10/05/24 12:20
Vital Signs
Initial and Last Documented VS:
Initial Vital Signs
Temp Pulse Resp BP Pulse Ox
99 F 81 16 123/57 98
10/05/24 09:51 10/05/24 09:51 10/05/24 09:51 10/05/24 09:51 10/05/24 09:51
Last Documented Vital Signs
Temp Pulse Resp BP Pulse Ox
99 F 76 15 122/92 98
10/05/24 09:51 10/05/24 12:15 10/05/24 12:15 10/05/24 12:11 10/05/24 09:51
<Jammie Bowen PA-C - Last Filed: 10/05/24 18:10>
MDM/Problems Addressed
Differential Diagnosis Includes:
see below
MDM/Problems Addressed:
NUMBER AND COMPLEXITY OF PROBLEMS ADDRESSED AT THE ENCOUNTER
� Chronic conditions affecting care: HTN, HLP, insulin dependent diabetes
� Acute Exacerbation and/or Progression of Chronic Illness:
� Differential Diagnosis includes: cellulitis, abscess, seroma
AMOUNT AND/OR COMPLEXITY OF DATA TO BE REVIEWED AND ANALYZED
� I performed an independent evaluation of and my interpretation is:
Laboratory Studies: no leukocytosis
Other:
� Review of other/old records: Reviewed operative report from 09/21/2024, reviewed discharge summary from 09/25/24--patient hospitalization complicated by afib she was started on Eliquis
� Clinical information was obtained by an independent historian: Son present in room who provided history of hospital course
� Prescriptions/Medications Considered but not given: none
� Further testing considered but not performed:
RISK OF COMPLICATIONS AND/OR MORBIDITY OR MORTALITY OF PATIENT MANAGEMENT
� Social determinants of health affecting care: none
� Discussion with other providers: ER attending, Dr. Ricardo general surgery
� Escalation of care including admission/observation vs risk of discharge considered:
84-year-old female with a past medical history of hypertension, hyperlipidemia, insulin-dependent diabetes presents to the emergency department today concerns of redness and swelling from her incision site. Surgery was done on 09/21/2024. Her CAT
scan today revealed postoperative changes in the anterior abdominal wall with slightly increased subcutaneous stranding which may process. Dr. Fagan came to evaluate pa in the ER who states that he believes that this is a superficial process and
he made an incision in the inferior portion of the surgical site and had the wound packed wet-to-dry. Patient sent home on Augmentin. Patient stable for discharge.
<Jammie Bowen PA-C - Last Filed: 10/05/24 18:10>
*Critical Care Note
Total Time (30-74mins, 75-104mins- exclusive of procedures): Not Applicable
ED Attending Note
<Jammie Bowen PA-C - Last Filed: 10/05/24 18:10>
-
Portions of this chart may have been created with voice recognition software.� Occasional wrong word or��sound alike� substitutions may have occurred due to the inherent limitations of voice recognition software.
<Jesus Hooper DO - Last Filed: 10/05/24 11:42>
ED Attending Note
Patient seen and examined by attending physician: Yes
I performed the substantive portion of visit, reviewed & personally made and approve the management plan that is documented in note by myself or SUZY.: Yes
ED Attending Note:
I evaluated the patient at bedside. The patient does have some cellulitic changes originating from the base of the surgical wound that extends to the laterally/right. There is also an area of indurated tissue versus abscess versus seroma. There
is some scant drainage of slightly purulent appearing fluid. There also appears to be an associated unroofed blister as well.
Discharge Plan
Departure
Patient Disposition: Home (Routine Discharge)
Date of Disposition: 10/05/24
Time of Disposition: 17:31
Patient with high blood pressure during this ER visit?: No
Condition: Good
Discharge Problem:
Skin infection
Instructions: Cellulitis (Skin Infection), Adult (DC), BLOOD PRESSURE, Skin Abscess
Prescriptions:
New
amoxicillin-pot clavulanate 875-125 mg tablet
1 tab PO BID 7 Days Qty: 14 0RF
No Action
aspirin 81 mg Tablet
81 mg PO DAILY
atenolol 50 mg Tablet
50 mg PO DAILY
insulin glargine 100 unit/mL Cartridge
26 - 28 unit SC DAILY
Eliquis 5 mg Tablet
5 mg PO BID Qty: 30 0RF
acetaminophen 325 mg Tablet
650 mg PO Q6HPRN PRN (Reason: mild pain/ fever>100.5F) Qty: 30 0RF
metformin 1,000 mg Tablet
1,000 mg PO BID@0800,1700 Qty: 30 0RF
pravastatin 80 mg Tablet
80 mg PO QPM Qty: 30 0RF
furosemide 20 mg Tablet
20 mg PO DAILY Qty: 20 0RF
tramadol 50 mg tablet
25 - 50 mg PO Q6HPRN PRN (Reason: severe pain/breakthrough pain) Qty: 15 0RF
Referrals:
Natasha Bojorquez MD [Family Provider] -
Activity Restrictions/Additional Instructions:
Wound care:
Please remove packing prior to showering. After showering, pat dry and replace packing wet to dry and cover with gauze.
The wound will heal from the inside out, this may take several weeks to close.
You may stop packing the wound once it is shallow enough that no packing can be placed in the wound.
He will be prescribed a short course of antibiotics.
Please follow-up with Dr. Fagan in 2 weeks (call the office to schedule an appointment) for follow-up.
PLEASE RETURN TO THE EMERGENCY DEPARTMENT SHOULD YOU DEVELOP FEVERS OR CHILLS, ACUTE WORSENING OF YOUR SYMPTOMS, ACUTE WORSENING OF YOUR PAIN, CHEST PAIN, SHORTNESS OF BREATH, INTRACTABLE NAUSEA OR VOMITING, OR ANY OTHER SIGNS OR SYMPTOMS CONCERNING
TO YOU.
Augmentin has been sent to your pharmacy, please start taking 1 tablet twice daily for 7 days.
Interventions
Interventions:
*Risk Screen - Suicide Last Done: 10/05/24 09:51
*General Assessment Last Done: 10/05/24 09:51
*Neglect/Abuse Screening Last Done: 10/05/24 09:51
Discharge Date and Time
Print Language: TAJIK
[2024-10-05 12:32] LABS: % Basophils 0.4 % (0-2); % Eosinophils 1.3 % (0-6); % Immature Granulocytes 1.3 % (0-0.5); % Lymphocytes 20.2 % (20.5-51.1); % Monocytes 6.4 % (1.7-9.3); % Neutrophils 70.4 % (42.2-75.2); Absolute Eosinophils 0.1 10^3/uL (0-0.7); Absolute Immature Granulocytes 0.1 10^3/uL (0-0.05); Absolute Lymphocytes 1.8 10^3/uL (1.2-3.4); Absolute Monocytes 0.6 10^3/uL (0.1-0.6); Absolute Neutrophils 6.4 10^3/uL (1.4-6.5); Hematocrit 28.9 % (37.0-47.0); Hemoglobin 9.2 g/dL (12.0-16.0); Mean Corp Hgb Conc. 31.8 g/dL (33.0-37.0); Mean Corpuscular Hgb 29.1 pg (27.0-31.0); Mean Corpuscular Volume 91.5 fL (81.0-99.0); Mean Platelet Volume 9.2 fL (7.4-10.4); Nucleated Red Blood Cells % 0 %; Platelet Count 242 10^3/uL (130-400); Red Blood Cell Count 3.16 10^6/uL (4.20-5.40); Red Cell Dist. Width 14.6 % (11.5-14.5); White Blood Cell Count 9.1 10^3/uL (4.8-10.8)
[2024-10-05 12:54] LABS: ALT (SGPT) 16 U/L (0-35); AST (SGOT) 17 U/L (14-36); Albumin 2.9 g/dl (3.5-5.0); Alkaline Phosphatase 102 U/L (38-126); Blood Urea Nitrogen 12 mg/dl (7-17); Calcium 8.8 mg/dl (8.4-10.2); Carbon Dioxide 33 mmol/L (22-30); Chloride 94 mmol/L (98-107); Glucose 112 mg/dl (70-99); Potassium 4.8 mmol/L (3.5-5.1); Sodium 133 mmol/L (135-145); Total Bilirubin 0.3 mg/dl (0.2-1.3); Total Protein 5.7 g/dl (6.3-8.2); eGFR > 60.00
[2024-10-05] MEDS: MORPHINE SULFATE 2 MG IV (16:56)
--- NOTE | 2024-10-05 17:22 | CON.GS ---
Consultation
-
Date/Time Consultation Requested: 10/05/2024 at 3 PM
Date/Time Consultation Performed: 10/05/2024 at 5 PM
Requesting Provider: Emergency department
Performing Provider: Dr. Fagan
Reason for Consultation: Lower abdominal incisional pain
Medical History
-
Chief Complaint: Lower abdominal incisional pain
History of Present Illness:
This is an 84-year-old female status post recent laparoscopic converted to open lysis of adhesions for persistent small bowel obstruction. She had a fairly prolonged course with postoperative ileus that eventually resolved. Her diet was advanced
and she was discharged home. She was seen in the office a week later for staple removal. At that point she had no complaints and her exam was completely benign. The patient has been doing well at home up until 3 days ago when she started noticing
some redness at the lower portion of her midline incision, she then subsequently developed some pain. She denies systemic signs of infection such as malaise or fevers. The patient denies Fever, Chest Pain, Shortness Of Breath, Nausea, Vomiting,
changes in urinary and bowel habits, unintentional weight loss. She offers no other complaints at this time. She states that her glucose has been well-controlled.
Past Medical History
Past Medical History: NIDDM
Past Surgical History: Other (Laparoscopic converted to open exploratory laparotomy.)
Social History
Tobacco: Non-Smoker
Alcohol: None
Drug: None
Living: With Family
Family History
Family History: Reviewed & Not Pertinent
Allergies / Home Medications
Allergy/AdvReac Type Severity Reaction Status Date / Time
No Known Allergies Allergy Verified 10/05/24 09:51
�Medication �Instructions �Recorded �Confirmed �Type
aspirin 81 mg tablet 81 mg PO DAILY 08/05/23 09/24/24 History
atenolol 50 mg tablet 50 mg PO DAILY Blood Pressure 08/05/23 09/14/24 History
insulin glargine 100 unit/mL 26 - 28 unit SC DAILY Diabetes 08/05/23 09/14/24 History
subcutaneous cartridge
acetaminophen 325 mg tablet 650 mg (2 x 325 mg) PO Q6HPRN PRN 09/24/24 Rx
mild pain/ fever>100.5F #30 tabs
apixaban 5 mg tablet (Eliquis) 5 mg PO BID #30 tabs 09/24/24 Rx
furosemide 20 mg tablet 20 mg PO DAILY #20 tabs 09/24/24 Rx
metformin 1,000 mg tablet 1,000 mg PO BID@0800,1700 #30 tabs 09/24/24 Rx
pravastatin 80 mg tablet 80 mg PO QPM High Cholesterol #30 09/24/24 09/14/24 Rx
tabs
tramadol 50 mg tablet 25 - 50 mg (0.5 - 1 x 50 mg) PO 09/25/24 Rx
Q6HPRN PRN severe
pain/breakthrough pain #15 tabs
Review of Systems
-
All other systems: Negative unless noted
A 10 point review of systems was completed, and was negative except as per HPI.
Physical Exam
Vital Signs
Temp Pulse Resp BP Pulse Ox
99 F 76 15 122/92 98
10/05/24 09:51 10/05/24 12:15 10/05/24 12:15 10/05/24 12:11 10/05/24 09:51
Body Mass Index (BMI) 0.0
Lab Results
10/05/24 12:20
10/05/24 12:20
WBC 9.1 10^3/uL (4.8-10.8) 10/05/24 12:20
Hgb 9.2 g/dL (12.0-16.0) L 10/05/24 12:20
Hct 28.9 % (37.0-47.0) L 10/05/24 12:20
Plt Count 242 10^3/uL (130-400) 10/05/24 12:20
Abs Immat Gran (auto) 0.1 10^3/uL (0-0.05) H 10/05/24 12:20
Neutrophils % 70.4 % (42.2-75.2) 10/05/24 12:20
Physical Exam
General: Well Developed
HEENT: Normocephalic
GI: Soft, Non Tender, Non Distended and Incisions (Her incision is clean dry and intact other than the inferior 3 cm of the wound which is warm to touch and has bert-incisional erythema and fluctuance. There is some minimal purulent drainage.)
Data Reviewed
-
CT Scan: Image Personally Visualized and interpreted, Report Reviewed by me, Discussed with Physician, Discussed with Patient and Discussed with Family
Labs: Labs Reviewed by me, Discussed with Physician, Discussed with Patient and Discussed with Family
Total Time Spent with Patient (in minutes): 35
Assessment / Plan
-
This is an 84-year-old female diabetic who has a superficial surgical site infection of her recent exploratory laparotomy incision. I suspect this began shortly after her staple removal in the office last week.
The inferior portion of the incision was incised and drained please see separate note for procedure details.
The wound was packed wet-to-dry. Discharge instructions updated. Patient has home nursing set up and 2 of her daughters are nurses, they feel comfortable managing this.
Please send patient home with a 4-day course of Augmentin.
No indication for general surgery admission, dispo per ED.
I spent 60 minutes in total for the care of this patient today including direct patient care and counseling, reviewing labs, imaging, coordination of care, as well as documentation.
--- NOTE | 2024-10-05 17:28 | W.PN.IRAD.PR ---
Procedure Note
-
Bedside incision and Drainage
A team time-out was performed confirming the location/laterality of the procedure, consent and allergies reviewed.
Location: Lower midline incision
Dimensions: 2 and half cm
Local: 1% Lidocaine
Equipment Mechanic Specialist: None
The skin was cleaned with alcohol and anesthetized with lidocaine. A vertical linear incision was made over her prior incision and dissection carried down through subcutaneous tissue. The abscess cavity was identified, though there was only a scant
amount of thin purulent discharge. The wound was irrigated with sterile saline. Hemostasis was obtained. There was minimal blood loss. The skin was packed with a packing strip. No specimens were sent to Pathology/Culture, as previous specimen had
already been sent. The patient tolerated the procedure well, discharge instructions reviewed and all questions were answered.
== END 2024-10-05 17:50 | disposition home or self-care (01) ==
LOC: EMR 09:47
PROVIDERS: Physician Assistant; CONSULT PHYSICIAN Surgery; EMERGENCY PHYSICIAN Emergency Medicine; FAMILY PHYSICIAN Internal Medicine
DX: T81.41XA Infection following a procedure, superficial incisional surgical site, initial encounter (principal); L02.211 Cutaneous abscess of abdominal wall; Y83.8 Other surgical procedures as the cause of abnormal reaction of the patient, or of later complication, without mention of misadventure at the time of the procedure; E11.9 Type 2 diabetes mellitus without complications; E78.5 Hyperlipidemia, unspecified; I10 Essential (primary) hypertension; Z79.4 Long term (current) use of insulin
CPT/HCPCS: 10060; 99284; 96374; 74177; 80053; 85025; 87070; 87077; 87205; Q9967

== ENCOUNTER 2024-11-05 06:18 | Day surgery (SDC) | payer OTHER, SELFPAY ==
[2024-11-05 07:53] LABS: Glucose - Point of Care 159 mg/dl (70-99)
== END 2024-11-05 09:09 | disposition home or self-care (01) ==
LOC: GI 06:18
PROVIDERS: ATTENDING PHYSICIAN Internal Medicine Gastroenterology
DX: K22.2 Esophageal obstruction (principal); K44.9 Diaphragmatic hernia without obstruction or gangrene; R13.10 Dysphagia, unspecified
CPT/HCPCS: 43249; 82962